=== PATIENT | male | born 1935 | race Two or more races ===

== ENCOUNTER 2022-09-19 13:21 | Outpatient (CLI) | payer MEDICARE, OTHER | END 2022-09-19 23:59 | disposition critical access hospital (66) | LOC: EMS 13:21 | DX: S09.90XA Unspecified injury of head, initial encounter (principal); R51.9 Headache, unspecified; W01.0XXA Fall on same level from slipping, tripping and stumbling without subsequent striking against object, initial encounter; Y93.89 Activity, other specified; Y92.009 Unspecified place in unspecified non-institutional (private) residence as the place of occurrence of the external cause; Z79.01 Long term (current) use of anticoagulants | CPT/HCPCS: A0425; A0429 ==

== ENCOUNTER 2022-09-19 13:59 | Emergency (ER) | payer MEDICARE, OTHER ==
[2022-09-19] MEDS ORDERED: ACETAMINOPHEN 325 MG TABLET PO STA (14:04)
--- NOTE | 2022-09-19 14:05 | ED Physician Documentation ---
PD HPI HEAD INJURY - Stated complaint Stated Complaint: FALL - History obtained from History obtained from: Patient, Family, EMS - History of Present Illness Mechanism of head injury: Fell (he was rollling a wheelbarrow of cord wood and it tipped, causing him to fall to side, striking head on the edge of minto. Possible briefly dazed. No reported LOC. No focal weakness, nausea, headache, neck pain.) Where head injury occurred: Home Timing - onset: Today Associated symptoms: AMS (briefly dazed and slow answers per family, but just for few minutes. Normal here in ER.). No: LOC Symptoms improve with: Rest Symptoms worsen with: Palpation (left side of head.). No: Movement Contributing factors: Anticoagulated Similar symptoms before: Has not had sx before Review of Systems Constitutional: denies: Fever Throat: denies: Sore throat Cardiac: denies: Chest pain / pressure Respiratory: denies: Dyspnea, Cough GI: denies: Abdominal Pain Neurologic: reports: Head injury. denies: Focal weakness, Numbness, Near syncope, Headache PD PAST MEDICAL HISTORY - Past Medical History Cardiovascular: Hypertension, Atrial fibrillation Neuro: None Endocrine/Autoimmune: Type 2 diabetes - Past Surgical History Past Surgical History: Yes Ortho: Knee replacement Cardiovascular: Pacemaker - Present Medications Home Medications: Ambulatory Orders Medication Instructions Recorded Confirmed Alfuzosin HCl [Alfuzosin HCl ER] 11/21/13 11/21/13 Calcium Carbonate [Calcium] 11/21/13 11/21/13 Ferrous Sulfate [Slow Release Iron] 11/21/13 11/21/13 Folic Acid 11/21/13 11/21/13 Losartan [Cozaar] 11/21/13 11/21/13 Metformin HCl 11/21/13 11/21/13 Metoprolol Succinate [Toprol Xl] 11/21/13 11/21/13 Simvastatin 11/21/13 11/21/13 Warfarin [Coumadin] 11/21/13 11/21/13 - Allergies Allergies/Adverse Reactions: Allergies Allergy/AdvReac Type Severity Reaction Status Date / Time latex AdvReac Itching Verified 09/19/22 14:01 - Social History Does the pt smoke?: No Smoking Status: Never smoker Does the pt drink ETOH?: No Does the pt have substance abuse?: No - Immunizations Immunizations are current?: Yes - POLST Patient has POLST: No PD ED PE NORMAL - Vitals Vital signs reviewed: Yes - General General: Alert and oriented X 3, No acute distress, Well developed/nourished - HEENT HEENT: PERRL, EOMI, Other (left parietal area with mild tenderness. No swelling nor brusing. ) - Neck Neck: Supple, no meningeal sign, No bony TTP, No adenopathy - Respiratory Respiratory: Clear bilaterally, Other (no chestwall tenderness. 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 ), See rad report PD Medical Decision Making - ED course Complexity details: reviewed results (no ICh nor acute findings. ), considered d ifferential (had fall with some impact of head but no neuro symptoms nor headache in ER. Is on coumadin, so risk of ICH. Can get CT ehad. ), d/w patient Departure - Departure Disposition: 01 Home, Self Care Clinical Impression: Accidental fall, Head contusion, Anticoagulant long-term use Condition: Stable Record reviewed to determine appropriate education?: Yes Follow-Up: Clari Pacheco MD [Primary Care Provider] - Comments: Your Coumadin level is 2.0 which is in the normal therapeutic range. Continue usual medications. Stay well-hydrated. Your head CT scan is normal. No signs of bleeding. We did this because of the concern for easier bleeding when you are on a blood thinner and struck your head. At this point you appear well. Normal activity as tolerated. Tylenol if needed for pains. Discharge Date/Time: 09/19/22 15:45
--- OUTSIDE RECORDS SUMMARY | 2022-09-19 14:28 | EXTERNAL MEDICAL SUMMARY RPT | Continuity of Care Document ---
Author Name Unknown Address [address] [place] [address] Phone Organization [place] Address [address] [place] [address] Phone Care Team Providers Care Fiscal Technician Name Role Phone Clari Pacheco Unavailable Unavailable Allergies and Intolerances date description facility type (no date) amiodarone [facility] (unknown) (no date) codeine [facility] (unknown) (no date) hydromorphone [facility] (unknown) (no date) latex [facility] (unknown) (no date) oxycodone [facility] (unknown) Problems date description facility 2022-08-09 00:00 Dementia [facility] Procedures date description facility 2022-08-09 00:00 X-ray of chest, single view [facility] 2022-08-09 00:00 Computed tomography angiography of head and neck vessels with contrast [facility] Results/Labs test date author facility value unit interpretation Result panel 1 (unknown) (no date) (unknown) [facility] (no value) (units unknown) (unknown) Result panel 2 (unknown) (no date) (unknown) [facility] (no value) (units unknown) (unknown) Result panel 3 (unknown) (no date) (unknown) [facility] (no value) (units unknown) (unknown) Result panel 4 (unknown) (no date) (unknown) [facility] (no value) (units unknown) (unknown) Result panel 5 (unknown) (no date) (unknown) [facility] (no value) (units unknown) (unknown) Result panel 6 (unknown) (no date) (unknown) [facility] (no value) (units unknown) (unknown) Result panel 7 (unknown) (no date) (unknown) [facility] (no value) (units unknown) (unknown) Result panel 8 (unknown) (no date) (unknown) [facility] (no value) (units unknown) (unknown) Result panel 9 (unknown) (no date) (unknown) [facility] (no value) (units unknown) (unknown) Result panel 10 (unknown) (no date) (unknown) [facility] (no value) (units unknown) (unknown) Result panel 11 (unknown) (no date) (unknown) [facility] (no value) (units unknown) (unknown) Result panel 12 (unknown) (no date) (unknown) [facility] (no value) (units unknown) (unknown) Result panel 13 (unknown) (no date) (unknown) [facility] (no value) (units unknown) (unknown) Result panel 14 (unknown) (no date) (unknown) [facility] (no value) (units unknown) (unknown) Result panel 15 (unknown) (no date) (unknown) [facility] (no value) (units unknown) (unknown) Result panel 16 (unknown) (no date) (unknown) [facility] (no value) (units unknown) (unknown) Result panel 17 (unknown) (no date) (unknown) [facility] (no value) (units unknown) (unknown) Result panel 18 (unknown) (no date) (unknown) [facility] (no value) (units unknown) (unknown) Result panel 19 (unknown) (no date) (unknown) [facility] (no value) (units unknown) (unknown) Result panel 20 (unknown) (no date) (unknown) [facility] (no value) (units unknown) (unknown) Result panel 21 (unknown) (no date) (unknown) [facility] (no value) (units unknown) (unknown) Result panel 22 (unknown) (no date) (unknown) [facility] (no value) (units unknown) (unknown) Result panel 23 (unknown) (no date) (unknown) [facility] (no value) (units unknown) (unknown) Result panel 24 (unknown) (no date) (unknown) [facility] (no value) (units unknown) (unknown) Result panel 25 (unknown) (no date) (unknown) [facility] (no value) (units unknown) (unknown) Result panel 26 (unknown) (no date) (unknown) [facility] (no value) (units unknown) (unknown) Result panel 27 (unknown) (no date) (unknown) [facility] (no value) (units unknown) (unknown) Result panel 28 (unknown) (no date) (unknown) [facility] (no value) (units unknown) (unknown) Result panel 29 (unknown) (no date) (unknown) [facility] (no value) (units unknown) (unknown) Result panel 30 (unknown) (no date) (unknown) [facility] (no value) (units unknown) (unknown) Result panel 31 (unknown) (no date) (unknown) [facility] (no value) (units unknown) (unknown) Result panel 32 (unknown) (no date) (unknown) [facility] (no value) (units unknown) (unknown) Result panel 33 (unknown) (no date) (unknown) [facility] (no value) (units unknown) (unknown) Result panel 34 (unknown) (no date) (unknown) [facility] (no value) (units unknown) (unknown) Result panel 35 (unknown) (no date) (unknown) [facility] (no value) (units unknown) (unknown) Result panel 36 (unknown) (no date) (unknown) [facility] (no value) (units unknown) (unknown) Result panel 37 (unknown) (no date) (unknown) [facility] (no value) (units unknown) (unknown) Result panel 38 (unknown) (no date) (unknown) [facility] (no value) (units unknown) (unknown) Result panel 39 (unknown) (no date) (unknown) [facility] (no value) (units unknown) (unknown) Result panel 40 (unknown) (no date) (unknown) [facility] (no value) (units unknown) (unknown) Result panel 41 (unknown) (no date) (unknown) [facility] (no value) (units unknown) (unknown) Result panel 42 (unknown) (no date) (unknown) [facility] (no value) (units unknown) (unknown) Result panel 43 (unknown) (no date) (unknown) [facility] (no value) (units unknown) (unknown) Result panel 44 (unknown) (no date) (unknown) [facility] (no value) (units unknown) (unknown) Result panel 45 (unknown) (no date) (unknown) [facility] (no value) (units unknown) (unknown) Result panel 46 (unknown) (no date) (unknown) [facility] (no value) (units unknown) (unknown) Result panel 47 (unknown) (no date) (unknown) [facility] (no value) (units unknown) (unknown) Result panel 48 (unknown) (no date) (unknown) [facility] (no value) (units unknown) (unknown) Result panel 49 (unknown) (no date) (unknown) [facility] (no value) (units unknown) (unknown) Result panel 50 (unknown) (no date) (unknown) [facility] (no value) (units unknown) (unknown) Result panel 51 (unknown) (no date) (unknown) [facility] (no value) (units unknown) (unknown) Result panel 52 (unknown) (no date) (unknown) [facility] (no value) (units unknown) (unknown) Result panel 53 (unknown) (no date) (unknown) [facility] (no value) (units unknown) (unknown) Result panel 54 (unknown) (no date) (unknown) [facility] (no value) (units unknown) (unknown) Result panel 55 (unknown) (no date) (unknown) [facility] (no value) (units unknown) (unknown) Result panel 56 (unknown) (no date) (unknown) [facility] (no value) (units unknown) (unknown) Result panel 57 (unknown) (no date) (unknown) [facility] (no value) (units unknown) (unknown) Result panel 58 (unknown) (no date) (unknown) [facility] (no value) (units unknown) (unknown) Result panel 59 (unknown) (no date) (unknown) [facility] (no value) (units unknown) (unknown) Result panel 60 (unknown) (no date) (unknown) [facility] (no value) (units unknown) (unknown) Result panel 61 (unknown) (no date) (unknown) [facility] (no value) (units unknown) (unknown) Result panel 62 (unknown) (no date) (unknown) [facility] (no value) (units unknown) (unknown) Result panel 63 (unknown) (no date) (unknown) [facility] (no value) (units unknown) (unknown) Result panel 64 (unknown) (no date) (unknown) [facility] (no value) (units unknown) (unknown) Result panel 65 (unknown) (no date) (unknown) [facility] (no value) (units unknown) (unknown) Result panel 66 (unknown) (no date) (unknown) [facility] (no value) (units unknown) (unknown) Result panel 67 (unknown) (no date) (unknown) [facility] (no value) (units unknown) (unknown) Result panel 68 (unknown) (no date) (unknown) [facility] (no value) (units unknown) (unknown) Result panel 69 (unknown) (no date) (unknown) [facility] (no value) (units unknown) (unknown) Result panel 70 (unknown) (no date) (unknown) [facility] (no value) (units unknown) (unknown) Result panel 71 (unknown) (no date) (unknown) [facility] (no value) (units unknown) (unknown) Result panel 72 (unknown) (no date) (unknown) [facility] (no value) (units unknown) (unknown) Result panel 73 (unknown) (no date) (unknown) [facility] (no value) (units unknown) (unknown) Result panel 74 (unknown) (no date) (unknown) [facility] (no value) (units unknown) (unknown) Result panel 75 (unknown) (no date) (unknown) [facility] (no value) (units unknown) (unknown) Result panel 76 (unknown) (no date) (unknown) [facility] (no value) (units unknown) (unknown) Result panel 77 (unknown) (no date) (unknown) [facility] (no value) (units unknown) (unknown) Result panel 78 (unknown) (no date) (unknown) [facility] (no value) (units unknown) (unknown) Result panel 79 (unknown) (no date) (unknown) [facility] (no value) (units unknown) (unknown) Result panel 80 (unknown) (no date) (unknown) [facility] (no value) (units unknown) (unknown) Result panel 81 (unknown) (no date) (unknown) [facility] (no value) (units unknown) (unknown) Result panel 82 (unknown) (no date) (unknown) [facility] (no value) (units unknown) (unknown) Result panel 83 (unknown) (no date) (unknown) [facility] (no value) (units unknown) (unknown) Result panel 84 (unknown) (no date) (unknown) [facility] (no value) (units unknown) (unknown) Result panel 85 (unknown) (no date) (unknown) [facility] (no value) (units unknown) (unknown) Result panel 86 (unknown) (no date) (unknown) [facility] (no value) (units unknown) (unknown) Result panel 87 (unknown) (no date) (unknown) [facility] (no value) (units unknown) (unknown) Result panel 88 (unknown) (no date) (unknown) [facility] (no value) (units unknown) (unknown) Result panel 89 (unknown) (no date) (unknown) [facility] (no value) (units unknown) (unknown) Result panel 90 (unknown) (no date) (unknown) [facility] (no value) (units unknown) (unknown) Result panel 91 (unknown) (no date) (unknown) [facility] (no value) (units unknown) (unknown) Result panel 92 (unknown) (no date) (unknown) [facility] (no value) (units unknown) (unknown) Result panel 93 (unknown) (no date) (unknown) [facility] (no value) (units unknown) (unknown) Result panel 94 (unknown) (no date) (unknown) [facility] (no value) (units unknown) (unknown) Result panel 95 (unknown) (no date) (unknown) [facility] (no value) (units unknown) (unknown) Result panel 96 (unknown) (no date) (unknown) [facility] (no value) (units unknown) (unknown) Result panel 97 (unknown) (no date) (unknown) [facility] (no value) (units unknown) (unknown) Result panel 98 (unknown) (no date) (unknown) [facility] (no value) (units unknown) (unknown) Result panel 99 (unknown) (no date) (unknown) [facility] (no value) (units unknown) (unknown) Result panel 100 (unknown) (no date) (unknown) [facility] (no value) (units unknown) (unknown) Result panel 101 (unknown) (no date) (unknown) [facility] (no value) (units unknown) (unknown) Result panel 102 (unknown) (no date) (unknown) [facility] (no value) (units unknown) (unknown) Result panel 103 (unknown) (no date) (unknown) [facility] (no value) (units unknown) (unknown) Result panel 104 (unknown) (no date) (unknown) [facility] (no value) (units unknown) (unknown) Result panel 105 (unknown) (no date) (unknown) [facility] (no value) (units unknown) (unknown) Result panel 106 (unknown) (no date) (unknown) [facility] (no value) (units unknown) (unknown) Result panel 107 (unknown) (no date) (unknown) [facility] (no value) (units unknown) (unknown) Result panel 108 (unknown) (no date) (unknown) [facility] (no value) (units unknown) (unknown) Result panel 109 (unknown) (no date) (unknown) [facility] (no value) (units unknown) (unknown) Result panel 110 (unknown) (no date) (unknown) [facility] (no value) (units unknown) (unknown) Result panel 111 (unknown) (no date) (unknown) [facility] (no value) (units unknown) (unknown) Result panel 112 (unknown) (no date) (unknown) (unknown) (no value) (units unknown) (unknown) (unknown) (no date) (unknown) (unknown) [id number] (units unknown) (unknown) (unknown) (no date) (unknown) (unknown) 08/09/22 (units unknown) (unknown) (unknown) (no date) (unknown) (unknown) 02/28/2017, 12:04. (units unknown) (unknown) (unknown) (no date) (unknown) (unknown) [address] [place] [address] (units unknown) (unknown) (unknown) (no date) (unknown) (unknown) Accession Number: [id number] (units unknown) (unknown) (unknown) (no date) (unknown) (unknown) Age/Sex: 86 / M Date of Service: (units unknown) (unknown) (unknown) (no date) (unknown) (unknown) [place] [address] (units unknown) (unknown) (unknown) (no date) (unknown) (unknown) Approved by: Andrzej Gonzales M.D. on 08/09/2022 at 14:00 (units unknown) (unknown) (unknown) (no date) (unknown) (unknown) Bones and chest wall: No suspicious bony lesions. Right shoulder DJD. (units unknown) (unknown) (unknown) (no date) (unknown) (unknown) COMPARISON: [facility], CT, CT ANGIO HEAD AND NECK, 08/09/2022, 12:47. (units unknown) (unknown) (unknown) (no date) (unknown) (unknown) : 1935 Acct:[id number] (units unknown) (unknown) (unknown) (no date) (unknown) (unknown) Dictated by: Andrzej Gonzales M.D. on 08/09/2022 at 13:59 (units unknown) (unknown) (unknown) (no date) (unknown) (unknown) FINDINGS: (units unknown) (unknown) (unknown) (no date) (unknown) (unknown) [facility], CR, XR CHEST 2V, 02/10/2020, 12:59. [facility], , CHEST 1 VIEW, (units unknown) (unknown) (unknown) (no date) (unknown) (unknown) IMPRESSION: (units unknown) (unknown) (unknown) (no date) (unknown) (unknown) INDICATIONS: chest pain (units unknown) (unknown) (unknown) (no date) (unknown) (unknown) [facility] (units unknown) (unknown) (unknown) (no date) (unknown) (unknown) [facility] (units unknown) (unknown) (unknown) (no date) (unknown) (unknown) Loc: ED (units unknown) (unknown) (unknown) (no date) (unknown) (unknown) Lungs and pleura: Lungs are clear. No pleural effusions or pneumothorax. (units unknown) (unknown) (unknown) (no date) (unknown) (unknown) Mediastinum: Mediastinal contours appear unchanged. Heart size is normal. (units unknown) (unknown) (unknown) (no date) (unknown) (unknown) No acute cardiopulmonary abnormality. (units unknown) (unknown) (unknown) (no date) (unknown) (unknown) Ordering Provider: Eulalia Hilliard D.O. (units unknown) (unknown) (unknown) (no date) (unknown) (unknown) Overlying soft (units unknown) (unknown) (unknown) (no date) (unknown) (unknown) PROCEDURE: XR CHEST 1V (units unknown) (unknown) (unknown) (no date) (unknown) (unknown) Patient: Mando Gomez MR#: [id number] (units unknown) (unknown) (unknown) (no date) (unknown) (unknown) Procedure: XR chest 1V (units unknown) (unknown) (unknown) (no date) (unknown) (unknown) Signed (units unknown) (unknown) (unknown) (no date) (unknown) (unknown) Surgical changes and devices: Cervical spine hardware. Left pacemaker with (units unknown) (unknown) (unknown) (no date) (unknown) (unknown) TECHNIQUE: One view of the chest was acquired. (units unknown) (unknown) (unknown) (no date) (unknown) (unknown) XRay Report (units unknown) (unknown) (unknown) (no date) (unknown) (unknown) and right ventricular leads. (units unknown) (unknown) (unknown) (no date) (unknown) (unknown) right atrial (units unknown) (unknown) (unknown) (no date) (unknown) (unknown) tissues appear unremarkable. (units unknown) (unknown) Result panel 113 (unknown) (no date) (unknown) (unknown) (no value) (units unknown) (unknown) (unknown) (no date) (unknown) (unknown) [id number] (units unknown) (unknown) (unknown) (no date) (unknown) (unknown) 08/09/22 (units unknown) (unknown) (unknown) (no date) (unknown) (unknown) [address] [place] [address] (units unknown) (unknown) (unknown) (no date) (unknown) (unknown) 07/26/2018, 17:34. (units unknown) (unknown) (unknown) (no date) (unknown) (unknown) A1 (units unknown) (unknown) (unknown) (no date) (unknown) (unknown) Accession Number: [id number] (units unknown) (unknown) (unknown) (no date) (unknown) (unknown) Additional findings: (units unknown) (unknown) (unknown) (no date) (unknown) (unknown) Age/Sex: 86 / M Date of Service: (units unknown) (unknown) (unknown) (no date) (unknown) (unknown) [place] [address] (units unknown) (unknown) (unknown) (no date) (unknown) (unknown) Anterior circulation: Intracranial internal carotid arteries are normal in size (units unknown) (unknown) (unknown) (no date) (unknown) (unknown) Any quantitative measurements of stenosis were performed using NASCET criteria. (units unknown) (unknown) (unknown) (no date) (unknown) (unknown) Approved by: Rian Rogers M.D. on 08/09/2022 at 12:30 (units unknown) (unknown) (unknown) (no date) (unknown) (unknown) BRAIN: (units unknown) (unknown) (unknown) (no date) (unknown) (unknown) Bones: No suspicious bony lesions. Visualized cervical spine appears normally (units unknown) (unknown) (unknown) (no date) (unknown) (unknown) Brain: No midline shift. No intracranial bleeds or masses. Ortiz-white matter (units unknown) (unknown) (unknown) (no date) (unknown) (unknown) COMPARISON: [facility], MR, STROKE PROTOCOL A, 01/02/2010, 19:35. [facility] (units unknown) (unknown) (unknown) (no date) (unknown) (unknown) CSF spaces: Ventricles are normal in size and shape. Basal cisterns are (units unknown) (unknown) (unknown) (no date) (unknown) (unknown) CT Scan Report (units unknown) (unknown) (unknown) (no date) (unknown) (unknown) CT, CT HEAD/BRAIN WO [facility], 07/16/2018, 18:37. [facility], CT, CT HEAD/BRAIN (units unknown) (unknown) (unknown) (no date) (unknown) (unknown) Carotid system: Atherosclerotic calcification is noted. The great vessels (units unknown) (unknown) (unknown) (no date) (unknown) (unknown) [id number] developmental anomalies (units unknown) (unknown) (unknown) (no date) (unknown) (unknown) : 1935 Acct:[id number] (units unknown) (unknown) (unknown) (no date) (unknown) (unknown) Dictated by: Rian Rogers M.D. on 08/09/2022 at 12:25 (units unknown) (unknown) (unknown) (no date) (unknown) (unknown) Extensive cervical spine postoperative and degenerative change. (units unknown) (unknown) (unknown) (no date) (unknown) (unknown) Extensive postoperative and degenerative changes can be seen of the cervical (units unknown) (unknown) (unknown) (no date) (unknown) (unknown) FINDINGS: (units unknown) (unknown) (unknown) (no date) (unknown) (unknown) HEAD CT ANGIOGRAPHY: (units unknown) (unknown) (unknown) (no date) (unknown) (unknown) Hospital, (units unknown) (unknown) (unknown) (no date) (unknown) (unknown) IMPRESSION: (units unknown) (unknown) (unknown) (no date) (unknown) (unknown) INDICATIONS: confusion since last night (units unknown) (unknown) (unknown) (no date) (unknown) (unknown) Image quality: Mild streak artifact can be seen through the skull base. (units unknown) (unknown) (unknown) (no date) (unknown) (unknown) [facility] (units unknown) (unknown) (unknown) (no date) (unknown) (unknown) Loc: ED (units unknown) (unknown) (unknown) (no date) (unknown) (unknown) NECK CT ANGIOGRAPHY: (units unknown) (unknown) (unknown) (no date) (unknown) (unknown) No acute intracranial process is seen. (units unknown) (unknown) (unknown) (no date) (unknown) (unknown) No significant intracranial arterial abnormality is seen. (units unknown) (unknown) (unknown) (no date) (unknown) (unknown) Orbits appear normal. (units unknown) (unknown) (unknown) (no date) (unknown) (unknown) Ordering Provider: Eulalia Hilliard D.O. (units unknown) (unknown) (unknown) (no date) (unknown) (unknown) PROCEDURE: CT ANGIO HEAD AND NECK (units unknown) (unknown) (unknown) (no date) (unknown) (unknown) Patient: Mando Gomez MR#: [id number] (units unknown) (unknown) (unknown) (no date) (unknown) (unknown) Posterior circulation: The origins of the vertebral arteries both appear widely (units unknown) (unknown) (unknown) (no date) (unknown) (unknown) Posterior circulation: The right V4 segment is within normal limits. The left (units unknown) (unknown) (unknown) (no date) (unknown) (unknown) Pre-contrast 4.5 mm thick sections acquired from the foramen magnum to the (units unknown) (unknown) (unknown) (no date) (unknown) (unknown) Procedure: CT angio head and neck (units unknown) (unknown) (unknown) (no date) (unknown) (unknown) Signed (units unknown) (unknown) (unknown) (no date) (unknown) (unknown) Sinuses: Sinuses and mastoids are clear. (units unknown) (unknown) (unknown) (no date) (unknown) (unknown) Skull and face: Calvarium and facial bones appear intact, without suspicious (units unknown) (unknown) (unknown) (no date) (unknown) (unknown) Soft tissues: Visualized neck soft tissues demonstrate no suspicious (units unknown) (unknown) (unknown) (no date) (unknown) (unknown) TECHNIQUE: (units unknown) (unknown) (unknown) (no date) (unknown) (unknown) The more superior extracranial portions of both vertebral arteries also (units unknown) (unknown) (unknown) (no date) (unknown) (unknown) There is a (units unknown) (unknown) (unknown) (no date) (unknown) (unknown) V4 (units unknown) (unknown) (unknown) (no date) (unknown) (unknown) WO CON, (units unknown) (unknown) (unknown) (no date) (unknown) (unknown) M[place], of typically no clinical consequence. The flow within the paired (units unknown) (unknown) (unknown) (no date) (unknown) (unknown) Within the arteries of the neck, no hemodynamically significant stenosis can be (units unknown) (unknown) (unknown) (no date) (unknown) (unknown) abnormalities. A (units unknown) (unknown) (unknown) (no date) (unknown) (unknown) acquired (units unknown) (unknown) (unknown) (no date) (unknown) (unknown) aligned. (units unknown) (unknown) (unknown) (no date) (unknown) (unknown) and courses. The bifurcation regions demonstrate generalized atherosclerotic (units unknown) (unknown) (unknown) (no date) (unknown) (unknown) and neck separately. For radiation dose reduction, the following was used: (units unknown) (unknown) (unknown) (no date) (unknown) (unknown) and symmetric. No aneurysms are seen. (units unknown) (unknown) (unknown) (no date) (unknown) (unknown) and (units unknown) (unknown) (unknown) (no date) (unknown) (unknown) and/or volume rendering reformats were acquired of the central intracranial (units unknown) (unknown) (unknown) (no date) (unknown) (unknown) anterior (units unknown) (unknown) (unknown) (no date) (unknown) (unknown) appears intact. (units unknown) (unknown) (unknown) (no date) (unknown) (unknown) arch through the [place] of [place]za. Post-contrast 4.5 mm thick sections then re (units unknown) (unknown) (unknown) (no date) (unknown) (unknown) arteries is normal and symmetric, with note made of focal atherosclerotic (units unknown) (unknown) (unknown) (no date) (unknown) (unknown) artery is (units unknown) (unknown) (unknown) (no date) (unknown) (unknown) automated (units unknown) (unknown) (unknown) (no date) (unknown) (unknown) calcification (units unknown) (unknown) (unknown) (no date) (unknown) (unknown) caliber (units unknown) (unknown) (unknown) (no date) (unknown) (unknown) carotid arteries appear patent. The common carotid arteries demonstrate normal (units unknown) (unknown) (unknown) (no date) (unknown) (unknown) cerebral arteries is otherwise within normal limits. The flow within the middle (units unknown) (unknown) (unknown) (no date) (unknown) (unknown) cerebral (units unknown) (unknown) (unknown) (no date) (unknown) (unknown) common (units unknown) (unknown) (unknown) (no date) (unknown) (unknown) conventional anatomy as they arise from the aortic arch. The origins of the (units unknown) (unknown) (unknown) (no date) (unknown) (unknown) demonstrate a (units unknown) (unknown) (unknown) (no date) (unknown) (unknown) demonstrate (units unknown) (unknown) (unknown) (no date) (unknown) (unknown) exposure control, adjustment of mA and/or kV according to patient size. (units unknown) (unknown) (unknown) (no date) (unknown) (unknown) extra-axial fluid collections. (units unknown) (unknown) (unknown) (no date) (unknown) (unknown) flow. There is a diminutive left A1 segment, with a corresponding robust right (units unknown) (unknown) (unknown) (no date) (unknown) (unknown) from the foramen magnum to the vertex. 3-dimensional (units unknown) (unknown) (unknown) (no date) (unknown) (unknown) interface (units unknown) (unknown) (unknown) (no date) (unknown) (unknown) irregularity and calcification, yet without a hemodynamically significant (units unknown) (unknown) (unknown) (no date) (unknown) (unknown) left-sided pacer device is seen. (units unknown) (unknown) (unknown) (no date) (unknown) (unknown) left. (units unknown) (unknown) (unknown) (no date) (unknown) (unknown) lesions. (units unknown) (unknown) (unknown) (no date) (unknown) (unknown) iisquhc-zyrikxilb-e rojection (MIP) (units unknown) (unknown) (unknown) (no date) (unknown) (unknown) more distal internal carotid arteries demonstrate normal course and caliber. (units unknown) (unknown) (unknown) (no date) (unknown) (unknown) normal appearing basilar artery. Flow within the posterior cerebral arteries is (units unknown) (unknown) (unknown) (no date) (unknown) (unknown) normal courses and calibers. The right vertebral artery is dominant to the (units unknown) (unknown) (unknown) (no date) (unknown) (unknown) normal (units unknown) (unknown) (unknown) (no date) (unknown) (unknown) of the right M1 segment, as on series 9, image 89. The anterior communicating (units unknown) (unknown) (unknown) (no date) (unknown) (unknown) of (units unknown) (unknown) (unknown) (no date) (unknown) (unknown) patent. No (units unknown) (unknown) (unknown) (no date) (unknown) (unknown) patent. (units unknown) (unknown) (unknown) (no date) (unknown) (unknown) seen. No aneurysms are seen. (units unknown) (unknown) (unknown) (no date) (unknown) (unknown) seen. (units unknown) (unknown) (unknown) (no date) (unknown) (unknown) segment largely terminates in the left posterior inferior cerebellar artery. (units unknown) (unknown) (unknown) (no date) (unknown) (unknown) segment. This is considered to be a normal developmental variant of the [place] (units unknown) (unknown) (unknown) (no date) (unknown) (unknown) spine. (units unknown) (unknown) (unknown) (no date) (unknown) (unknown) stenosis. The (units unknown) (unknown) (unknown) (no date) (unknown) (unknown) the administration of intravenous contrast, 1 mm thick sections acquired from (units unknown) (unknown) (unknown) (no date) (unknown) (unknown) the aortic (units unknown) (unknown) (unknown) (no date) (unknown) (unknown) vasculature (units unknown) (unknown) (unknown) (no date) (unknown) (unknown) vertex. After (units unknown) (unknown) Result panel 114 (unknown) (no date) (unknown) (unknown) 0.9 % (unknown) (unknown) (no date) (unknown) (unknown) 100 /ul (unknown) (unknown) (no date) (unknown) (unknown) 1000 /ul (unknown) (unknown) (no date) (unknown) (unknown) 13.0 g/dl (unknown) (unknown) (no date) (unknown) (unknown) 14.4 % (unknown) (unknown) (no date) (unknown) (unknown) 169 x10 3/ul (unknown) (unknown) (no date) (unknown) (unknown) 17.8 % (unknown) (unknown) (no date) (unknown) (unknown) 3.98 x10 6/ul (unknown) (unknown) (no date) (unknown) (unknown) 32.7 pg (unknown) (unknown) (no date) (unknown) (unknown) 33.7 % (unknown) (unknown) (no date) (unknown) (unknown) 38.7 % (unknown) (unknown) (no date) (unknown) (unknown) 3800 /ul (unknown) (unknown) (no date) (unknown) (unknown) 400 /ul (unknown) (unknown) (no date) (unknown) (unknown) 5.8 x10 3/ul (unknown) (unknown) (no date) (unknown) (unknown) 500 /ul (unknown) (unknown) (no date) (unknown) (unknown) 6.5 % (unknown) (unknown) (no date) (unknown) (unknown) 65.7 % (unknown) (unknown) (no date) (unknown) (unknown) 9.1 % (unknown) (unknown) (no date) (unknown) (unknown) 97.0 fl (unknown) Result panel 115 (unknown) (no date) (unknown) (unknown) 1.0 mg/dl (unknown) (unknown) (no date) (unknown) (unknown) 1.23 mg/dl (unknown) (unknown) (no date) (unknown) (unknown) 1.3 (units unknown) (unknown) (unknown) (no date) (unknown) (unknown) 112 u/l (unknown) (unknown) (no date) (unknown) (unknown) 137 mmol/l (unknown) (unknown) (no date) (unknown) (unknown) 145 mg/dl (unknown) (unknown) (no date) (unknown) (unknown) 145 mg/dl (unknown) (unknown) (no date) (unknown) (unknown) 2.6 mmol/l (unknown) (unknown) (no date) (unknown) (unknown) 21 iu/l (unknown) (unknown) (no date) (unknown) (unknown) 23.6 (units unknown) (unknown) (unknown) (no date) (unknown) (unknown) 27 mmol/l (unknown) (unknown) (no date) (unknown) (unknown) 29 mg/dl (unknown) (unknown) (no date) (unknown) (unknown) 30 iu/l (unknown) (unknown) (no date) (unknown) (unknown) 379 u/l (unknown) (unknown) (no date) (unknown) (unknown) 4.0 g/dl (unknown) (unknown) (no date) (unknown) (unknown) 4.7 mmol/l (unknown) (unknown) (no date) (unknown) (unknown) 5.0 g/dl (unknown) (unknown) (no date) (unknown) (unknown) 57 ml/min (unknown) (unknown) (no date) (unknown) (unknown) 57 ml/min (unknown) (unknown) (no date) (unknown) (unknown) 83 u/l (unknown) (unknown) (no date) (unknown) (unknown) 9.0 g/dl (unknown) (unknown) (no date) (unknown) (unknown) 9.9 mg/dl (unknown) (unknown) (no date) (unknown) (unknown) 99 mmol/l (unknown) Result panel 116 (unknown) (no date) (unknown) (unknown) (no value) (units unknown) (unknown) (unknown) (no date) (unknown) (unknown) (Calcium 500 + D) (units unknown) (unknown) (unknown) (no date) (unknown) (unknown) [id number] (units unknown) (unknown) (unknown) (no date) (unknown) (unknown) 08/09/22 08/09/22 08/09/22 Range/Units (units unknown) (unknown) (unknown) (no date) (unknown) (unknown) 08/09/22 12:01 (units unknown) (unknown) (unknown) (no date) (unknown) (unknown) 08/09/22 12:02 (units unknown) (unknown) (unknown) (no date) (unknown) (unknown) 08/09/22 12:05 (units unknown) (unknown) (unknown) (no date) (unknown) (unknown) 08/09/22 12:07 (units unknown) (unknown) (unknown) (no date) (unknown) (unknown) 08/09/22 12:08 (units unknown) (unknown) (unknown) (no date) (unknown) (unknown) 08/09/22 (units unknown) (unknown) (unknown) (no date) (unknown) (unknown) 1 tab PO BID (units unknown) (unknown) (unknown) (no date) (unknown) (unknown) 1,000 mg PO BID (units unknown) (unknown) (unknown) (no date) (unknown) (unknown) 1,000 unit PO DAILY (units unknown) (unknown) (unknown) (no date) (unknown) (unknown) 1.5 mg PO SEEINSTR Qty: 0 (units unknown) (unknown) (unknown) (no date) (unknown) (unknown) 10 mg PO BEDTIME (units unknown) (unknown) (unknown) (no date) (unknown) (unknown) 10 mg PO QDAY Qty: 0 (units unknown) (unknown) (unknown) (no date) (unknown) (unknown) 100 mcg PO BID (units unknown) (unknown) (unknown) (no date) (unknown) (unknown) 11:55 (units unknown) (unknown) (unknown) (no date) (unknown) (unknown) 12:05 12:05 12:05 (units unknown) (unknown) (unknown) (no date) (unknown) (unknown) 2 spray Intranasal BID Qty: 0 (units unknown) (unknown) (unknown) (no date) (unknown) (unknown) 2 tab PO DAILY (units unknown) (unknown) (unknown) (no date) (unknown) (unknown) 3 mg PO SEEINSTR (units unknown) (unknown) (unknown) (no date) (unknown) (unknown) 324 mg PO DAILY (units unknown) (unknown) (unknown) (no date) (unknown) (unknown) 500 mg PO BID (units unknown) (unknown) (unknown) (no date) (unknown) (unknown) 75 mg PO DAILY (units unknown) (unknown) (unknown) (no date) (unknown) (unknown) ALT 21 (<50) IU/L (units unknown) (unknown) (unknown) (no date) (unknown) (unknown) AST 30 (17-59) IU/L (units unknown) (unknown) (unknown) (no date) (unknown) (unknown) Age/Sex: 86 / M (units unknown) (unknown) (unknown) (no date) (unknown) (unknown) Albumin 5.0 (3.5-5.0) g/dL (units unknown) (unknown) (unknown) (no date) (unknown) (unknown) Albumin/Globulin Ratio 1.3 (1.0-2.8) (units unknown) (unknown) (unknown) (no date) (unknown) (unknown) Alkaline Phosphatase 83 (38-126) U/L (units unknown) (unknown) (unknown) (no date) (unknown) (unknown) Allergies (units unknown) (unknown) (unknown) (no date) (unknown) (unknown) Allergy/AdvReac Type Severity Reaction Status Date / Time (units unknown) (unknown) (unknown) (no date) (unknown) (unknown) Atrial fibrillation (units unknown) (unknown) (unknown) (no date) (unknown) (unknown) BUN 29 H (9-20) mg/dL (units unknown) (unknown) (unknown) (no date) (unknown) (unknown) BUN/Creatinine Ratio 23.6 H (6-22) (units unknown) (unknown) (unknown) (no date) (unknown) (unknown) Baso # (Auto) 100 (0-100) /uL (units unknown) (unknown) (unknown) (no date) (unknown) (unknown) Baso % (Auto) 0.9 (0-2) % (units unknown) (unknown) (unknown) (no date) (unknown) (unknown) Blood Culture Stat (units unknown) (unknown) (unknown) (no date) (unknown) (unknown) Blood Pressure 139/74 08/09/22 11:55 (units unknown) (unknown) (unknown) (no date) (unknown) (unknown) Blood Pressure 139/74 (units unknown) (unknown) (unknown) (no date) (unknown) (unknown) CT angio head and neck Stat (units unknown) (unknown) (unknown) (no date) (unknown) (unknown) CT head/brain wo con Stat (units unknown) (unknown) (unknown) (no date) (unknown) (unknown) Calcium 9.9 (8.4-10.2) mg/dL (units unknown) (unknown) (unknown) (no date) (unknown) (unknown) Carbon Dioxide 27 (22-32) mmol/L (units unknown) (unknown) (unknown) (no date) (unknown) (unknown) Chief Complaint: Neuro Symptoms/Deficit (units unknown) (unknown) (unknown) (no date) (unknown) (unknown) Chloride 99 (98-107) mmol/L (units unknown) (unknown) (unknown) (no date) (unknown) (unknown) Complete Blood Count AUTO DIFF Stat (units unknown) (unknown) (unknown) (no date) (unknown) (unknown) Comprehensive Metabolic Panel Stat (units unknown) (unknown) (unknown) (no date) (unknown) (unknown) Course (units unknown) (unknown) (unknown) (no date) (unknown) (unknown) Creatinine 1.23 (0.66-1.25) mg/dL (units unknown) (unknown) (unknown) (no date) (unknown) (unknown) D3 10 mcg (400 unit) tablet (units unknown) (unknown) (unknown) (no date) (unknown) (unknown) D3) (units unknown) (unknown) (unknown) (no date) (unknown) (unknown) : 1935 Acct:[id number] (units unknown) (unknown) (unknown) (no date) (unknown) (unknown) Date of Service: 08/09/22 (units unknown) (unknown) (unknown) (no date) (unknown) (unknown) Departure (units unknown) (unknown) (unknown) (no date) (unknown) (unknown) Discharge Plan (units unknown) (unknown) (unknown) (no date) (unknown) (unknown) ED Orders (units unknown) (unknown) (unknown) (no date) (unknown) (unknown) EKG-12 Lead Stat (units unknown) (unknown) (unknown) (no date) (unknown) (unknown) ER Physician: Eulalia Hilliard D.O. (units unknown) (unknown) (unknown) (no date) (unknown) (unknown) Emergency Report (units unknown) (unknown) (unknown) (no date) (unknown) (unknown) Eos # (Auto) 400 (0-450) /uL (units unknown) (unknown) (unknown) (no date) (unknown) (unknown) Eos % (Auto) 6.5 H (2-4) % (units unknown) (unknown) (unknown) (no date) (unknown) (unknown) Estimated GFR 57 L (>60) mL/min (units unknown) (unknown) (unknown) (no date) (unknown) (unknown) Exam (units unknown) (unknown) (unknown) (no date) (unknown) (unknown) General (units unknown) (unknown) (unknown) (no date) (unknown) (unknown) Globulin 4.0 (1.7-4.1) g/dL (units unknown) (unknown) (unknown) (no date) (unknown) (unknown) Glucose 145 H (80-110) mg/dL (units unknown) (unknown) (unknown) (no date) (unknown) (unknown) HPI - Neuro Symptoms/Deficit (units unknown) (unknown) (unknown) (no date) (unknown) (unknown) Hct 38.7 L (41-53) % (units unknown) (unknown) (unknown) (no date) (unknown) (unknown) Hematologic/Lymphat ic (units unknown) (unknown) (unknown) (no date) (unknown) (unknown) Hgb 13.0 L (13.5-17.5) g/dL (units unknown) (unknown) (unknown) (no date) (unknown) (unknown) History of Present Illness (units unknown) (unknown) (unknown) (no date) (unknown) (unknown) Home Medications (units unknown) (unknown) (unknown) (no date) (unknown) (unknown) Hyperglycemia (units unknown) (unknown) (unknown) (no date) (unknown) (unknown) Hypertension (units unknown) (unknown) (unknown) (no date) (unknown) (unknown) Initial Vital Signs (units unknown) (unknown) (unknown) (no date) (unknown) (unknown) Initial Vital Signs: (units unknown) (unknown) (unknown) (no date) (unknown) (unknown) [address] [address] (units unknown) (unknown) (unknown) (no date) (unknown) (unknown) Lab Data (units unknown) (unknown) (unknown) (no date) (unknown) (unknown) Lab Results (units unknown) (unknown) (unknown) (no date) (unknown) (unknown) Labs: (units unknown) (unknown) (unknown) (no date) (unknown) (unknown) Lactate (Lactic Acid) Stat (units unknown) (unknown) (unknown) (no date) (unknown) (unknown) Lactate 2.6 H (0.7-2.1) mmol/L (units unknown) (unknown) (unknown) (no date) (unknown) (unknown) Lipase 379 H (23-300) U/L (units unknown) (unknown) (unknown) (no date) (unknown) (unknown) Lipase Stat (units unknown) (unknown) (unknown) (no date) (unknown) (unknown) Lymph # (Auto) 1000 L (6819-7462) /uL (units unknown) (unknown) (unknown) (no date) (unknown) (unknown) Lymph % (Auto) 17.8 L (25-40) % (units unknown) (unknown) (unknown) (no date) (unknown) (unknown) MCH 32.7 (26-34) PG (units unknown) (unknown) (unknown) (no date) (unknown) (unknown) MCHC 33.7 (30-36) % (units unknown) (unknown) (unknown) (no date) (unknown) (unknown) MCV 97.0 (80-100) fL (units unknown) (unknown) (unknown) (no date) (unknown) (unknown) MDM - Neuro Symptoms/Deficit (units unknown) (unknown) (unknown) (no date) (unknown) (unknown) Medical History (units unknown) (unknown) (unknown) (no date) (unknown) (unknown) Medication Instructions Recorded Confirmed (units unknown) (unknown) (unknown) (no date) (unknown) (unknown) Migraines (units unknown) (unknown) (unknown) (no date) (unknown) (unknown) Mode of arrival: Ambulatory (units unknown) (unknown) (unknown) (no date) (unknown) (unknown) [place] # (Auto) 500 (0-900) /uL (units unknown) (unknown) (unknown) (no date) (unknown) (unknown) [place] % (Auto) 9.1 (3-14) % (units unknown) (unknown) (unknown) (no date) (unknown) (unknown) Move [facility] 750 mg-100 mg- 1.65 mg-108 mg Tablet (units unknown) (unknown) (unknown) (no date) (unknown) (unknown) Neut # (Auto) 3800 (8145-3218) /uL (units unknown) (unknown) (unknown) (no date) (unknown) (unknown) Neut % (Auto) 65.7 (50-75) % (units unknown) (unknown) (unknown) (no date) (unknown) (unknown) No Action (units unknown) (unknown) (unknown) (no date) (unknown) (unknown) On Anticoagulants: Yes (units unknown) (unknown) (unknown) (no date) (unknown) (unknown) Ordered: (units unknown) (unknown) (unknown) (no date) (unknown) (unknown) Orders (units unknown) (unknown) (unknown) (no date) (unknown) (unknown) Oxygen Delivery Method Room Air 08/09/22 11:55 (units unknown) (unknown) (unknown) (no date) (unknown) (unknown) Oxygen Delivery Method Room Air (units unknown) (unknown) (unknown) (no date) (unknown) (unknown) PTT Partial Thromboplastin [place] Stat (units unknown) (unknown) (unknown) (no date) (unknown) (unknown) Pacemaker (units unknown) (unknown) (unknown) (no date) (unknown) (unknown) Patient Comments: (units unknown) (unknown) (unknown) (no date) (unknown) (unknown) Patient History (units unknown) (unknown) (unknown) (no date) (unknown) (unknown) Patient: Mando Gomez MR#: [id number] (units unknown) (unknown) (unknown) (no date) (unknown) (unknown) Plt Count 169 (150-400) X103/uL (units unknown) (unknown) (unknown) (no date) (unknown) (unknown) Potassium 4.7 (3.4-5.1) mmol/L (units unknown) (unknown) (unknown) (no date) (unknown) (unknown) Prescriptions: (units unknown) (unknown) (unknown) (no date) (unknown) (unknown) Procalcitonin Stat (units unknown) (unknown) (unknown) (no date) (unknown) (unknown) Prothrombin Time INR Stat (units unknown) (unknown) (unknown) (no date) (unknown) (unknown) Pulse Oximetry 98 08/09/22 11:55 (units unknown) (unknown) (unknown) (no date) (unknown) (unknown) Pulse Oximetry 98 (units unknown) (unknown) (unknown) (no date) (unknown) (unknown) Pulse Rate 80 08/09/22 11:55 (units unknown) (unknown) (unknown) (no date) (unknown) (unknown) Pulse Rate 80 (units unknown) (unknown) (unknown) (no date) (unknown) (unknown) RBC 3.98 L (4.5-5.9) X106/uL (units unknown) (unknown) (unknown) (no date) (unknown) (unknown) RDW 14.4 (11.6-14.8) % (units unknown) (unknown) (unknown) (no date) (unknown) (unknown) Referrals: (units unknown) (unknown) (unknown) (no date) (unknown) (unknown) Related Data (units unknown) (unknown) (unknown) (no date) (unknown) (unknown) Relief) (units unknown) (unknown) (unknown) (no date) (unknown) (unknown) Respiratory Rate 16 08/09/22 11:55 (units unknown) (unknown) (unknown) (no date) (unknown) (unknown) Respiratory Rate 16 (units unknown) (unknown) (unknown) (no date) (unknown) (unknown) Review of Systems (units unknown) (unknown) (unknown) (no date) (unknown) (unknown) Rx Instructions: (units unknown) (unknown) (unknown) (no date) (unknown) (unknown) SWELLING (units unknown) (unknown) (unknown) (no date) (unknown) (unknown) Signed By: (units unknown) (unknown) (unknown) (no date) (unknown) (unknown) Smoking Status: Never smoker (units unknown) (unknown) (unknown) (no date) (unknown) (unknown) Social History (units unknown) (unknown) (unknown) (no date) (unknown) (unknown) Sodium 137 (137-145) mmol/L (units unknown) (unknown) (unknown) (no date) (unknown) (unknown) Sodium Chloride (Normal Saline 0.9%) 1,000 mls @ 150 mls/hr IV CONT PREET (units unknown) (unknown) (unknown) (no date) (unknown) (unknown) Source: family (units unknown) (unknown) (unknown) (no date) (unknown) (unknown) Stated Complaint: sent by DR naik he had a stroke (units unknown) (unknown) (unknown) (no date) (unknown) (unknown) Substance Use Type: does not use (units unknown) (unknown) (unknown) (no date) (unknown) (unknown) Clari Pacheco MD [Primary Care Provider] (units unknown) (unknown) (unknown) (no date) (unknown) (unknown) Tablet (units unknown) (unknown) (unknown) (no date) (unknown) (unknown) Takes 1.5 mg on Tuesdays and Saturdays (units unknown) (unknown) (unknown) (no date) (unknown) (unknown) Takes 3 mg on Saturday, Saturday, , Saturday and Saturday (units unknown) (unknown) (unknown) (no date) (unknown) (unknown) Temperature 97.6 F 08/09/22 11:55 (units unknown) (unknown) (unknown) (no date) (unknown) (unknown) Temperature 97.6 F (units unknown) (unknown) (unknown) (no date) (unknown) (unknown) Time Seen by Provider: 08/09/22 12:07 (units unknown) (unknown) (unknown) (no date) (unknown) (unknown) Total Bilirubin 1.0 (0.2-1.3) mg/dL (units unknown) (unknown) (unknown) (no date) (unknown) (unknown) Total Creatine Kinase 112 (55-170) U/L (units unknown) (unknown) (unknown) (no date) (unknown) (unknown) Total Protein 9.0 H (6.3-8.2) g/dL (units unknown) (unknown) (unknown) (no date) (unknown) (unknown) Troponin + CK Cardiac Panel Stat (units unknown) (unknown) (unknown) (no date) (unknown) (unknown) Urinalysis and Microscopic Stat (units unknown) (unknown) (unknown) (no date) (unknown) (unknown) Vital Signs - 8 hr (units unknown) (unknown) (unknown) (no date) (unknown) (unknown) Vital Signs (units unknown) (unknown) (unknown) (no date) (unknown) (unknown) Vital signs: (units unknown) (unknown) (unknown) (no date) (unknown) (unknown) WBC 5.8 (4.5-11.0) X103/uL (units unknown) (unknown) (unknown) (no date) (unknown) (unknown) XR chest 1V Stat (units unknown) (unknown) (unknown) (no date) (unknown) (unknown) [Embedded Image Not Available] (units unknown) (unknown) (unknown) (no date) (unknown) (unknown) alcohol intake frequency: 0-2 drinks per day (units unknown) (unknown) (unknown) (no date) (unknown) (unknown) alfuzosin 10 mg tablet,extended 10 mg PO QDAY ##0 02/28/17 05/09/19 (units unknown) (unknown) (unknown) (no date) (unknown) (unknown) alfuzosin [Uroxatral] 10 MG tablet extended release 24 hr (units unknown) (unknown) (unknown) (no date) (unknown) (unknown) amiodarone [AMIODARONE] Allergy Severe FACIAL Verified 05/08/19 17:47 (units unknown) (unknown) (unknown) (no date) (unknown) (unknown) atorvastatin 10 mg Tablet (units unknown) (unknown) (unknown) (no date) (unknown) (unknown) atorvastatin 10 mg tablet 10 mg PO BEDTIME 05/09/19 05/09/19 (units unknown) (unknown) (unknown) (no date) (unknown) (unknown) calcium carbonate 500 mg-vitamin 1 tab PO BID 05/09/19 05/09/19 (units unknown) (unknown) (unknown) (no date) (unknown) (unknown) calcium carbonate-vitamin D3 [Calcium 500 + D] 500 mg(1,250mg) -400 unit (units unknown) (unknown) (unknown) (no date) (unknown) (unknown) cholecalciferol (vitamin D3) 25 1,000 unit PO DAILY 05/09/19 05/09/19 (units unknown) (unknown) (unknown) (no date) (unknown) (unknown) cholecalciferol (vitamin D3) [Vitamin D3] 1,000 unit Capsule (units unknown) (unknown) (unknown) (no date) (unknown) (unknown) codeine [CODEINE] AdvReac Intermediate N/V Verified 05/08/19 17:47 (units unknown) (unknown) (unknown) (no date) (unknown) (unknown) cyanocobalamin (vitamin B-12) 100 100 mcg PO BID 05/09/19 05/09/19 (units unknown) (unknown) (unknown) (no date) (unknown) (unknown) cyanocobalamin (vitamin B-12) [Vitamin B-12] 100 mcg Tablet (units unknown) (unknown) (unknown) (no date) (unknown) (unknown) ferrous sulfate 324 mg (65 mg 324 mg PO DAILY 05/09/19 05/09/19 (units unknown) (unknown) (unknown) (no date) (unknown) (unknown) ferrous sulfate 324 mg (65 mg iron) Tablet,Delayed Release (Dr/Ec) (units unknown) (unknown) (unknown) (no date) (unknown) (unknown) fluticasone propionate 50 2 spray intranasal BID ##0 06/14/11 05/09/19 (units unknown) (unknown) (unknown) (no date) (unknown) (unknown) fluticasone propionate [Flonase Allergy Relief] 9.9 ML spray,suspension (units unknown) (unknown) (unknown) (no date) (unknown) (unknown) glucosam 750 mg-chondroi 100 2 tab PO DAILY 05/09/19 05/09/19 (units unknown) (unknown) (unknown) (no date) (unknown) (unknown) household members: spouse (units unknown) (unknown) (unknown) (no date) (unknown) (unknown) hydromorphone [HYDROMORPHONE] AdvReac Intermediate N/V Verified 05/08/19 17:47 (units unknown) (unknown) (unknown) (no date) (unknown) (unknown) iron) tablet,delayed release (units unknown) (unknown) (unknown) (no date) (unknown) (unknown) latex [LATEX] AdvReac Mild RASH Verified 05/08/19 17:47 (units unknown) (unknown) (unknown) (no date) (unknown) (unknown) magnesium citrate 100 mg Tablet (units unknown) (unknown) (unknown) (no date) (unknown) (unknown) magnesium citrate 100 mg tablet 500 mg PO BID 05/09/19 05/09/19 (units unknown) (unknown) (unknown) (no date) (unknown) (unknown) mcg (1,000 unit) capsule (Vitamin (units unknown) (unknown) (unknown) (no date) (unknown) (unknown) mcg tablet (Vitamin B-12) (units unknown) (unknown) (unknown) (no date) (unknown) (unknown) mcg/actuation nasal (units unknown) (unknown) (unknown) (no date) (unknown) (unknown) metformin 1,000 mg Tablet (units unknown) (unknown) (unknown) (no date) (unknown) (unknown) metformin 1,000 mg tablet 1,000 mg PO BID 05/09/19 05/09/19 (units unknown) (unknown) (unknown) (no date) (unknown) (unknown) metoprolol succinate 25 mg 75 mg PO DAILY 05/09/19 05/09/19 (units unknown) (unknown) (unknown) (no date) (unknown) (unknown) metoprolol succinate 25 mg Tablet Extended Release 24 Hr (units unknown) (unknown) (unknown) (no date) (unknown) (unknown) mg-hyalur 1.65 mg-CF borate 108 mg (units unknown) (unknown) (unknown) (no date) (unknown) (unknown) oxycodone [OXYCODONE] AdvReac Intermediate N/V Verified 05/08/19 17:47 (units unknown) (unknown) (unknown) (no date) (unknown) (unknown) release 24 hr (Uroxatral) (units unknown) (unknown) (unknown) (no date) (unknown) (unknown) spray,suspension (Flonase Allergy (units unknown) (unknown) (unknown) (no date) (unknown) (unknown) tablet ([facility]) (units unknown) (unknown) (unknown) (no date) (unknown) (unknown) tablet,extended release 24 hr (units unknown) (unknown) (unknown) (no date) (unknown) (unknown) warfarin 1 MG tablet (units unknown) (unknown) (unknown) (no date) (unknown) (unknown) warfarin 1 mg tablet 1.5 mg PO SEEINSTR ##0 06/05/11 05/09/19 (units unknown) (unknown) (unknown) (no date) (unknown) (unknown) warfarin 3 mg Tablet (units unknown) (unknown) (unknown) (no date) (unknown) (unknown) warfarin 3 mg tablet 3 mg PO SEEINSTR 05/09/19 05/09/19 (units unknown) (unknown) Result panel 117 (unknown) (no date) (unknown) (unknown) 1.8 (units unknown) (unknown) (unknown) (no date) (unknown) (unknown) 21.0 seconds (unknown) (unknown) (no date) (unknown) (unknown) 40 seconds (unknown) (unknown) (no date) (unknown) (unknown) 40 seconds (unknown) Result panel 118 (unknown) (no date) (unknown) (unknown) < 0.012 ng/ml (unknown) (unknown) (no date) (unknown) (unknown) < 0.012 ng/ml (unknown) (unknown) (no date) (unknown) (unknown) 1.0 mg/dl (unknown) (unknown) (no date) (unknown) (unknown) 1.23 mg/dl (unknown) (unknown) (no date) (unknown) (unknown) 1.3 (units unknown) (unknown) (unknown) (no date) (unknown) (unknown) 112 u/l (unknown) (unknown) (no date) (unknown) (unknown) 137 mmol/l (unknown) (unknown) (no date) (unknown) (unknown) 145 mg/dl (unknown) (unknown) (no date) (unknown) (unknown) 145 mg/dl (unknown) (unknown) (no date) (unknown) (unknown) 21 iu/l (unknown) (unknown) (no date) (unknown) (unknown) 23.6 (units unknown) (unknown) (unknown) (no date) (unknown) (unknown) 27 mmol/l (unknown) (unknown) (no date) (unknown) (unknown) 29 mg/dl (unknown) (unknown) (no date) (unknown) (unknown) 30 iu/l (unknown) (unknown) (no date) (unknown) (unknown) 379 u/l (unknown) (unknown) (no date) (unknown) (unknown) 4.0 g/dl (unknown) (unknown) (no date) (unknown) (unknown) 4.7 mmol/l (unknown) (unknown) (no date) (unknown) (unknown) 5.0 g/dl (unknown) (unknown) (no date) (unknown) (unknown) 57 ml/min (unknown) (unknown) (no date) (unknown) (unknown) 57 ml/min (unknown) (unknown) (no date) (unknown) (unknown) 83 u/l (unknown) (unknown) (no date) (unknown) (unknown) 9.0 g/dl (unknown) (unknown) (no date) (unknown) (unknown) 9.9 mg/dl (unknown) (unknown) (no date) (unknown) (unknown) 99 mmol/l (unknown) Result panel 119 (unknown) (no date) (unknown) (unknown) 0.04 ng/ml (unknown) (unknown) (no date) (unknown) (unknown) 0.04 ng/ml (unknown) Result panel 120 (unknown) (no date) (unknown) (unknown) < 0.012 ng/ml (unknown) (unknown) (no date) (unknown) (unknown) < 0.012 ng/ml (unknown) (unknown) (no date) (unknown) (unknown) 1.0 mg/dl (unknown) (unknown) (no date) (unknown) (unknown) 1.2 % (unknown) (unknown) (no date) (unknown) (unknown) 1.23 mg/dl (unknown) (unknown) (no date) (unknown) (unknown) 1.3 (units unknown) (unknown) (unknown) (no date) (unknown) (unknown) 1.33 ng/ml (unknown) (unknown) (no date) (unknown) (unknown) 112 u/l (unknown) (unknown) (no date) (unknown) (unknown) 137 mmol/l (unknown) (unknown) (no date) (unknown) (unknown) 145 mg/dl (unknown) (unknown) (no date) (unknown) (unknown) 145 mg/dl (unknown) (unknown) (no date) (unknown) (unknown) 21 iu/l (unknown) (unknown) (no date) (unknown) (unknown) 23.6 (units unknown) (unknown) (unknown) (no date) (unknown) (unknown) 27 mmol/l (unknown) (unknown) (no date) (unknown) (unknown) 29 mg/dl (unknown) (unknown) (no date) (unknown) (unknown) 30 iu/l (unknown) (unknown) (no date) (unknown) (unknown) 379 u/l (unknown) (unknown) (no date) (unknown) (unknown) 4.0 g/dl (unknown) (unknown) (no date) (unknown) (unknown) 4.7 mmol/l (unknown) (unknown) (no date) (unknown) (unknown) 5.0 g/dl (unknown) (unknown) (no date) (unknown) (unknown) 57 ml/min (unknown) (unknown) (no date) (unknown) (unknown) 57 ml/min (unknown) (unknown) (no date) (unknown) (unknown) 83 u/l (unknown) (unknown) (no date) (unknown) (unknown) 9.0 g/dl (unknown) (unknown) (no date) (unknown) (unknown) 9.9 mg/dl (unknown) (unknown) (no date) (unknown) (unknown) 99 mmol/l (unknown) Result panel 121 (unknown) (no date) (unknown) (unknown) (no value) (units unknown) (unknown) (unknown) (no date) (unknown) (unknown) (Calcium 500 + D) (units unknown) (unknown) (unknown) (no date) (unknown) (unknown) [id number] (units unknown) (unknown) (unknown) (no date) (unknown) (unknown) 08/09/22 08/09/22 08/09/22 Range/Units (units unknown) (unknown) (unknown) (no date) (unknown) (unknown) 08/09/22 12:01 (units unknown) (unknown) (unknown) (no date) (unknown) (unknown) 08/09/22 12:02 (units unknown) (unknown) (unknown) (no date) (unknown) (unknown) 08/09/22 12:05 (units unknown) (unknown) (unknown) (no date) (unknown) (unknown) 08/09/22 12:07 (units unknown) (unknown) (unknown) (no date) (unknown) (unknown) 08/09/22 12:08 (units unknown) (unknown) (unknown) (no date) (unknown) (unknown) 08/09/22 (units unknown) (unknown) (unknown) (no date) (unknown) (unknown) 1 tab PO BID (units unknown) (unknown) (unknown) (no date) (unknown) (unknown) 1,000 mg PO BID (units unknown) (unknown) (unknown) (no date) (unknown) (unknown) 1,000 unit PO DAILY (units unknown) (unknown) (unknown) (no date) (unknown) (unknown) 1.5 mg PO SEEINSTR Qty: 0 (units unknown) (unknown) (unknown) (no date) (unknown) (unknown) 10 mg PO BEDTIME (units unknown) (unknown) (unknown) (no date) (unknown) (unknown) 10 mg PO QDAY Qty: 0 (units unknown) (unknown) (unknown) (no date) (unknown) (unknown) 100 mcg PO BID (units unknown) (unknown) (unknown) (no date) (unknown) (unknown) 11:55 (units unknown) (unknown) (unknown) (no date) (unknown) (unknown) 12:05 12:05 12:05 (units unknown) (unknown) (unknown) (no date) (unknown) (unknown) 2 spray Intranasal BID Qty: 0 (units unknown) (unknown) (unknown) (no date) (unknown) (unknown) 2 tab PO DAILY (units unknown) (unknown) (unknown) (no date) (unknown) (unknown) 3 mg PO SEEINSTR (units unknown) (unknown) (unknown) (no date) (unknown) (unknown) 324 mg PO DAILY (units unknown) (unknown) (unknown) (no date) (unknown) (unknown) 500 mg PO BID (units unknown) (unknown) (unknown) (no date) (unknown) (unknown) 75 mg PO DAILY (units unknown) (unknown) (unknown) (no date) (unknown) (unknown) ALT 21 (<50) IU/L (units unknown) (unknown) (unknown) (no date) (unknown) (unknown) AST 30 (17-59) IU/L (units unknown) (unknown) (unknown) (no date) (unknown) (unknown) Age/Sex: 86 / M (units unknown) (unknown) (unknown) (no date) (unknown) (unknown) Albumin 5.0 (3.5-5.0) g/dL (units unknown) (unknown) (unknown) (no date) (unknown) (unknown) Albumin/Globulin Ratio 1.3 (1.0-2.8) (units unknown) (unknown) (unknown) (no date) (unknown) (unknown) Alkaline Phosphatase 83 (38-126) U/L (units unknown) (unknown) (unknown) (no date) (unknown) (unknown) Allergies (units unknown) (unknown) (unknown) (no date) (unknown) (unknown) Allergy/AdvReac Type Severity Reaction Status Date / Time (units unknown) (unknown) (unknown) (no date) (unknown) (unknown) Atrial fibrillation (units unknown) (unknown) (unknown) (no date) (unknown) (unknown) BUN 29 H (9-20) mg/dL (units unknown) (unknown) (unknown) (no date) (unknown) (unknown) BUN/Creatinine Ratio 23.6 H (6-22) (units unknown) (unknown) (unknown) (no date) (unknown) (unknown) Baso # (Auto) 100 (0-100) /uL (units unknown) (unknown) (unknown) (no date) (unknown) (unknown) Baso % (Auto) 0.9 (0-2) % (units unknown) (unknown) (unknown) (no date) (unknown) (unknown) Blood Culture Stat (units unknown) (unknown) (unknown) (no date) (unknown) (unknown) Blood Pressure 139/74 08/09/22 11:55 (units unknown) (unknown) (unknown) (no date) (unknown) (unknown) Blood Pressure 139/74 (units unknown) (unknown) (unknown) (no date) (unknown) (unknown) CT angio head and neck Stat (units unknown) (unknown) (unknown) (no date) (unknown) (unknown) CT head/brain wo con Stat (units unknown) (unknown) (unknown) (no date) (unknown) (unknown) Calcium 9.9 (8.4-10.2) mg/dL (units unknown) (unknown) (unknown) (no date) (unknown) (unknown) Carbon Dioxide 27 (22-32) mmol/L (units unknown) (unknown) (unknown) (no date) (unknown) (unknown) Chief Complaint: Neuro Symptoms/Deficit (units unknown) (unknown) (unknown) (no date) (unknown) (unknown) Chloride 99 (98-107) mmol/L (units unknown) (unknown) (unknown) (no date) (unknown) (unknown) Complete Blood Count AUTO DIFF Stat (units unknown) (unknown) (unknown) (no date) (unknown) (unknown) Comprehensive Metabolic Panel Stat (units unknown) (unknown) (unknown) (no date) (unknown) (unknown) Course (units unknown) (unknown) (unknown) (no date) (unknown) (unknown) Creatinine 1.23 (0.66-1.25) mg/dL (units unknown) (unknown) (unknown) (no date) (unknown) (unknown) D3 10 mcg (400 unit) tablet (units unknown) (unknown) (unknown) (no date) (unknown) (unknown) D3) (units unknown) (unknown) (unknown) (no date) (unknown) (unknown) : 1935 Acct:[id number] (units unknown) (unknown) (unknown) (no date) (unknown) (unknown) Date of Service: 08/09/22 (units unknown) (unknown) (unknown) (no date) (unknown) (unknown) Departure (units unknown) (unknown) (unknown) (no date) (unknown) (unknown) Discharge Plan (units unknown) (unknown) (unknown) (no date) (unknown) (unknown) ED Orders (units unknown) (unknown) (unknown) (no date) (unknown) (unknown) EKG-12 Lead Stat (units unknown) (unknown) (unknown) (no date) (unknown) (unknown) ER Physician: Eulalia Hilliard D.O. (units unknown) (unknown) (unknown) (no date) (unknown) (unknown) Emergency Report (units unknown) (unknown) (unknown) (no date) (unknown) (unknown) Eos # (Auto) 400 (0-450) /uL (units unknown) (unknown) (unknown) (no date) (unknown) (unknown) Eos % (Auto) 6.5 H (2-4) % (units unknown) (unknown) (unknown) (no date) (unknown) (unknown) Estimated GFR 57 L (>60) mL/min (units unknown) (unknown) (unknown) (no date) (unknown) (unknown) Exam (units unknown) (unknown) (unknown) (no date) (unknown) (unknown) General (units unknown) (unknown) (unknown) (no date) (unknown) (unknown) Globulin 4.0 (1.7-4.1) g/dL (units unknown) (unknown) (unknown) (no date) (unknown) (unknown) Glucose 145 H (80-110) mg/dL (units unknown) (unknown) (unknown) (no date) (unknown) (unknown) HPI - Neuro Symptoms/Deficit (units unknown) (unknown) (unknown) (no date) (unknown) (unknown) HPI Narrative: (units unknown) (unknown) (unknown) (no date) (unknown) (unknown) Hct 38.7 L (41-53) % (units unknown) (unknown) (unknown) (no date) (unknown) (unknown) Hematologic/Lymphat ic (units unknown) (unknown) (unknown) (no date) (unknown) (unknown) Hgb 13.0 L (13.5-17.5) g/dL (units unknown) (unknown) (unknown) (no date) (unknown) (unknown) History of Present Illness (units unknown) (unknown) (unknown) (no date) (unknown) (unknown) Home Medications (units unknown) (unknown) (unknown) (no date) (unknown) (unknown) Hyperglycemia (units unknown) (unknown) (unknown) (no date) (unknown) (unknown) Hypertension (units unknown) (unknown) (unknown) (no date) (unknown) (unknown) Initial Vital Signs (units unknown) (unknown) (unknown) (no date) (unknown) (unknown) Initial Vital Signs: (units unknown) (unknown) (unknown) (no date) (unknown) (unknown) [address] [address] (units unknown) (unknown) (unknown) (no date) (unknown) (unknown) Lab Data (units unknown) (unknown) (unknown) (no date) (unknown) (unknown) Lab Results (units unknown) (unknown) (unknown) (no date) (unknown) (unknown) Labs: (units unknown) (unknown) (unknown) (no date) (unknown) (unknown) Lactate (Lactic Acid) Stat (units unknown) (unknown) (unknown) (no date) (unknown) (unknown) Lactate 2.6 H (0.7-2.1) mmol/L (units unknown) (unknown) (unknown) (no date) (unknown) (unknown) Lipase 379 H (23-300) U/L (units unknown) (unknown) (unknown) (no date) (unknown) (unknown) Lipase Stat (units unknown) (unknown) (unknown) (no date) (unknown) (unknown) Lymph # (Auto) 1000 L (4875-2997) /uL (units unknown) (unknown) (unknown) (no date) (unknown) (unknown) Lymph % (Auto) 17.8 L (25-40) % (units unknown) (unknown) (unknown) (no date) (unknown) (unknown) MCH 32.7 (26-34) PG (units unknown) (unknown) (unknown) (no date) (unknown) (unknown) MCHC 33.7 (30-36) % (units unknown) (unknown) (unknown) (no date) (unknown) (unknown) MCV 97.0 (80-100) fL (units unknown) (unknown) (unknown) (no date) (unknown) (unknown) MDM - Neuro Symptoms/Deficit (units unknown) (unknown) (unknown) (no date) (unknown) (unknown) Medical History (units unknown) (unknown) (unknown) (no date) (unknown) (unknown) Medication Instructions Recorded Confirmed (units unknown) (unknown) (unknown) (no date) (unknown) (unknown) Migraines (units unknown) (unknown) (unknown) (no date) (unknown) (unknown) Mode of arrival: Ambulatory (units unknown) (unknown) (unknown) (no date) (unknown) (unknown) [place] # (Auto) 500 (0-900) /uL (units unknown) (unknown) (unknown) (no date) (unknown) (unknown) [place] % (Auto) 9.1 (3-14) % (units unknown) (unknown) (unknown) (no date) (unknown) (unknown) [facility] 750 mg-100 mg- 1.65 mg-108 mg Tablet (units unknown) (unknown) (unknown) (no date) (unknown) (unknown) Neut # (Auto) 3800 (4755-9046) /uL (units unknown) (unknown) (unknown) (no date) (unknown) (unknown) Neut % (Auto) 65.7 (50-75) % (units unknown) (unknown) (unknown) (no date) (unknown) (unknown) No Action (units unknown) (unknown) (unknown) (no date) (unknown) (unknown) On Anticoagulants: Yes (units unknown) (unknown) (unknown) (no date) (unknown) (unknown) Ordered: (units unknown) (unknown) (unknown) (no date) (unknown) (unknown) Orders (units unknown) (unknown) (unknown) (no date) (unknown) (unknown) Oxygen Delivery Method Room Air 08/09/22 11:55 (units unknown) (unknown) (unknown) (no date) (unknown) (unknown) Oxygen Delivery Method Room Air (units unknown) (unknown) (unknown) (no date) (unknown) (unknown) PTT Partial Thromboplastin [place] Stat (units unknown) (unknown) (unknown) (no date) (unknown) (unknown) Pacemaker (units unknown) (unknown) (unknown) (no date) (unknown) (unknown) Patient 86-year-old male history of atrial fibrillation on warfarin, (units unknown) (unknown) (unknown) (no date) (unknown) (unknown) Patient Comments: (units unknown) (unknown) (unknown) (no date) (unknown) (unknown) Patient History (units unknown) (unknown) (unknown) (no date) (unknown) (unknown) Patient: Mando Gomez MR#: [id number] (units unknown) (unknown) (unknown) (no date) (unknown) (unknown) Plt Count 169 (150-400) X103/uL (units unknown) (unknown) (unknown) (no date) (unknown) (unknown) Potassium 4.7 (3.4-5.1) mmol/L (units unknown) (unknown) (unknown) (no date) (unknown) (unknown) Prescriptions: (units unknown) (unknown) (unknown) (no date) (unknown) (unknown) Procalcitonin Stat (units unknown) (unknown) (unknown) (no date) (unknown) (unknown) Prothrombin Time INR Stat (units unknown) (unknown) (unknown) (no date) (unknown) (unknown) Pulse Oximetry 98 08/09/22 11:55 (units unknown) (unknown) (unknown) (no date) (unknown) (unknown) Pulse Oximetry 98 (units unknown) (unknown) (unknown) (no date) (unknown) (unknown) Pulse Rate 80 08/09/22 11:55 (units unknown) (unknown) (unknown) (no date) (unknown) (unknown) Pulse Rate 80 (units unknown) (unknown) (unknown) (no date) (unknown) (unknown) RBC 3.98 L (4.5-5.9) X106/uL (units unknown) (unknown) (unknown) (no date) (unknown) (unknown) RDW 14.4 (11.6-14.8) % (units unknown) (unknown) (unknown) (no date) (unknown) (unknown) Referrals: (units unknown) (unknown) (unknown) (no date) (unknown) (unknown) Related Data (units unknown) (unknown) (unknown) (no date) (unknown) (unknown) Relief) (units unknown) (unknown) (unknown) (no date) (unknown) (unknown) Respiratory Rate 16 08/09/22 11:55 (units unknown) (unknown) (unknown) (no date) (unknown) (unknown) Respiratory Rate 16 (units unknown) (unknown) (unknown) (no date) (unknown) (unknown) Review of Systems (units unknown) (unknown) (unknown) (no date) (unknown) (unknown) Rx Instructions: (units unknown) (unknown) (unknown) (no date) (unknown) (unknown) SWELLING (units unknown) (unknown) (unknown) (no date) (unknown) (unknown) Signed By: (units unknown) (unknown) (unknown) (no date) (unknown) (unknown) Smoking Status: Never smoker (units unknown) (unknown) (unknown) (no date) (unknown) (unknown) Social History (units unknown) (unknown) (unknown) (no date) (unknown) (unknown) Sodium 137 (137-145) mmol/L (units unknown) (unknown) (unknown) (no date) (unknown) (unknown) Sodium Chloride (Normal Saline 0.9%) 1,000 mls @ 150 mls/hr IV CONT PREET (units unknown) (unknown) (unknown) (no date) (unknown) (unknown) Source: family (units unknown) (unknown) (unknown) (no date) (unknown) (unknown) Stated Complaint: sent by DR naik he had a stroke (units unknown) (unknown) (unknown) (no date) (unknown) (unknown) Substance Use Type: does not use (units unknown) (unknown) (unknown) (no date) (unknown) (unknown) Clari Pacheco MD [Primary Care Provider] (units unknown) (unknown) (unknown) (no date) (unknown) (unknown) Tablet (units unknown) (unknown) (unknown) (no date) (unknown) (unknown) Takes 1.5 mg on Tuesdays and Saturdays (units unknown) (unknown) (unknown) (no date) (unknown) (unknown) Takes 3 mg on Saturday, Saturday, , Saturday and Saturday (units unknown) (unknown) (unknown) (no date) (unknown) (unknown) Temperature 97.6 F 08/09/22 11:55 (units unknown) (unknown) (unknown) (no date) (unknown) (unknown) Temperature 97.6 F (units unknown) (unknown) (unknown) (no date) (unknown) (unknown) Time Seen by Provider: 08/09/22 12:07 (units unknown) (unknown) (unknown) (no date) (unknown) (unknown) Total Bilirubin 1.0 (0.2-1.3) mg/dL (units unknown) (unknown) (unknown) (no date) (unknown) (unknown) Total Creatine Kinase 112 (55-170) U/L (units unknown) (unknown) (unknown) (no date) (unknown) (unknown) Total Protein 9.0 H (6.3-8.2) g/dL (units unknown) (unknown) (unknown) (no date) (unknown) (unknown) Troponin + CK Cardiac Panel Stat (units unknown) (unknown) (unknown) (no date) (unknown) (unknown) Urinalysis and Microscopic Stat (units unknown) (unknown) (unknown) (no date) (unknown) (unknown) Vital Signs - 8 hr (units unknown) (unknown) (unknown) (no date) (unknown) (unknown) Vital Signs (units unknown) (unknown) (unknown) (no date) (unknown) (unknown) Vital signs: (units unknown) (unknown) (unknown) (no date) (unknown) (unknown) WBC 5.8 (4.5-11.0) X103/uL (units unknown) (unknown) (unknown) (no date) (unknown) (unknown) XR chest 1V Stat (units unknown) (unknown) (unknown) (no date) (unknown) (unknown) [Embedded Image Not Available] (units unknown) (unknown) (unknown) (no date) (unknown) (unknown) alcohol intake frequency: 0-2 drinks per day (units unknown) (unknown) (unknown) (no date) (unknown) (unknown) alfuzosin 10 mg tablet,extended 10 mg PO QDAY ##0 02/28/17 05/09/19 (units unknown) (unknown) (unknown) (no date) (unknown) (unknown) alfuzosin [Uroxatral] 10 MG tablet extended release 24 hr (units unknown) (unknown) (unknown) (no date) (unknown) (unknown) amiodarone [AMIODARONE] Allergy Severe FACIAL Verified 05/08/19 17:47 (units unknown) (unknown) (unknown) (no date) (unknown) (unknown) atorvastatin 10 mg Tablet (units unknown) (unknown) (unknown) (no date) (unknown) (unknown) atorvastatin 10 mg tablet 10 mg PO BEDTIME 05/09/19 05/09/19 (units unknown) (unknown) (unknown) (no date) (unknown) (unknown) calcium carbonate 500 mg-vitamin 1 tab PO BID 05/09/19 05/09/19 (units unknown) (unknown) (unknown) (no date) (unknown) (unknown) calcium carbonate-vitamin D3 [Calcium 500 + D] 500 mg(1,250mg) -400 unit (units unknown) (unknown) (unknown) (no date) (unknown) (unknown) cholecalciferol (vitamin D3) 25 1,000 unit PO DAILY 05/09/19 05/09/19 (units unknown) (unknown) (unknown) (no date) (unknown) (unknown) cholecalciferol (vitamin D3) [Vitamin D3] 1,000 unit Capsule (units unknown) (unknown) (unknown) (no date) (unknown) (unknown) codeine [CODEINE] AdvReac Intermediate N/V Verified 05/08/19 17:47 (units unknown) (unknown) (unknown) (no date) (unknown) (unknown) cyanocobalamin (vitamin B-12) 100 100 mcg PO BID 05/09/19 05/09/19 (units unknown) (unknown) (unknown) (no date) (unknown) (unknown) cyanocobalamin (vitamin B-12) [Vitamin B-12] 100 mcg Tablet (units unknown) (unknown) (unknown) (no date) (unknown) (unknown) ferrous sulfate 324 mg (65 mg 324 mg PO DAILY 05/09/19 05/09/19 (units unknown) (unknown) (unknown) (no date) (unknown) (unknown) ferrous sulfate 324 mg (65 mg iron) Tablet,Delayed Release (Dr/Ec) (units unknown) (unknown) (unknown) (no date) (unknown) (unknown) fluticasone propionate 50 2 spray intranasal BID ##0 06/14/11 05/09/19 (units unknown) (unknown) (unknown) (no date) (unknown) (unknown) fluticasone propionate [Flonase Allergy Relief] 9.9 ML spray,suspension (units unknown) (unknown) (unknown) (no date) (unknown) (unknown) glucosam 750 mg-chondroi 100 2 tab PO DAILY 05/09/19 05/09/19 (units unknown) (unknown) (unknown) (no date) (unknown) (unknown) household members: spouse (units unknown) (unknown) (unknown) (no date) (unknown) (unknown) hydromorphone [HYDROMORPHONE] AdvReac Intermediate N/V Verified 05/08/19 17:47 (units unknown) (unknown) (unknown) (no date) (unknown) (unknown) iron) tablet,delayed release (units unknown) (unknown) (unknown) (no date) (unknown) (unknown) latex [LATEX] AdvReac Mild RASH Verified 05/08/19 17:47 (units unknown) (unknown) (unknown) (no date) (unknown) (unknown) magnesium citrate 100 mg Tablet (units unknown) (unknown) (unknown) (no date) (unknown) (unknown) magnesium citrate 100 mg tablet 500 mg PO BID 05/09/19 05/09/19 (units unknown) (unknown) (unknown) (no date) (unknown) (unknown) mcg (1,000 unit) capsule (Vitamin (units unknown) (unknown) (unknown) (no date) (unknown) (unknown) mcg tablet (Vitamin B-12) (units unknown) (unknown) (unknown) (no date) (unknown) (unknown) mcg/actuation nasal (units unknown) (unknown) (unknown) (no date) (unknown) (unknown) metformin 1,000 mg Tablet (units unknown) (unknown) (unknown) (no date) (unknown) (unknown) metformin 1,000 mg tablet 1,000 mg PO BID 05/09/19 05/09/19 (units unknown) (unknown) (unknown) (no date) (unknown) (unknown) metoprolol succinate 25 mg 75 mg PO DAILY 05/09/19 05/09/19 (units unknown) (unknown) (unknown) (no date) (unknown) (unknown) metoprolol succinate 25 mg Tablet Extended Release 24 Hr (units unknown) (unknown) (unknown) (no date) (unknown) (unknown) mg-hyalur 1.65 mg-CF borate 108 mg (units unknown) (unknown) (unknown) (no date) (unknown) (unknown) oxycodone [OXYCODONE] AdvReac Intermediate N/V Verified 05/08/19 17:47 (units unknown) (unknown) (unknown) (no date) (unknown) (unknown) release 24 hr (Uroxatral) (units unknown) (unknown) (unknown) (no date) (unknown) (unknown) spray,suspension (Flonase Allergy (units unknown) (unknown) (unknown) (no date) (unknown) (unknown) tablet ([facility]) (units unknown) (unknown) (unknown) (no date) (unknown) (unknown) tablet,extended release 24 hr (units unknown) (unknown) (unknown) (no date) (unknown) (unknown) warfarin 1 MG tablet (units unknown) (unknown) (unknown) (no date) (unknown) (unknown) warfarin 1 mg tablet 1.5 mg PO SEEINSTR ##0 06/05/11 05/09/19 (units unknown) (unknown) (unknown) (no date) (unknown) (unknown) warfarin 3 mg Tablet (units unknown) (unknown) (unknown) (no date) (unknown) (unknown) warfarin 3 mg tablet 3 mg PO SEEINSTR 05/09/19 05/09/19 (units unknown) (unknown) Result panel 122 (unknown) (no date) (unknown) (unknown) (no value) (units unknown) (unknown) (unknown) (no date) (unknown) (unknown) (Calcium 500 + D) (units unknown) (unknown) (unknown) (no date) (unknown) (unknown) [id number] (units unknown) (unknown) (unknown) (no date) (unknown) (unknown) 08/09/22 08/09/22 08/09/22 Range/Units (units unknown) (unknown) (unknown) (no date) (unknown) (unknown) 08/09/22 12:01 (units unknown) (unknown) (unknown) (no date) (unknown) (unknown) 08/09/22 12:02 (units unknown) (unknown) (unknown) (no date) (unknown) (unknown) 08/09/22 12:05 (units unknown) (unknown) (unknown) (no date) (unknown) (unknown) 08/09/22 12:07 (units unknown) (unknown) (unknown) (no date) (unknown) (unknown) 08/09/22 12:08 (units unknown) (unknown) (unknown) (no date) (unknown) (unknown) 08/09/22 (units unknown) (unknown) (unknown) (no date) (unknown) (unknown) 1 tab PO BID (units unknown) (unknown) (unknown) (no date) (unknown) (unknown) 1,000 mg PO BID (units unknown) (unknown) (unknown) (no date) (unknown) (unknown) 1,000 unit PO DAILY (units unknown) (unknown) (unknown) (no date) (unknown) (unknown) 1.5 mg PO SEEINSTR Qty: 0 (units unknown) (unknown) (unknown) (no date) (unknown) (unknown) 10 mg PO BEDTIME (units unknown) (unknown) (unknown) (no date) (unknown) (unknown) 10 mg PO QDAY Qty: 0 (units unknown) (unknown) (unknown) (no date) (unknown) (unknown) 100 mcg PO BID (units unknown) (unknown) (unknown) (no date) (unknown) (unknown) 11:55 (units unknown) (unknown) (unknown) (no date) (unknown) (unknown) 12:05 12:05 12:05 (units unknown) (unknown) (unknown) (no date) (unknown) (unknown) 2 spray Intranasal BID Qty: 0 (units unknown) (unknown) (unknown) (no date) (unknown) (unknown) 2 tab PO DAILY (units unknown) (unknown) (unknown) (no date) (unknown) (unknown) 3 mg PO SEEINSTR (units unknown) (unknown) (unknown) (no date) (unknown) (unknown) 324 mg PO DAILY (units unknown) (unknown) (unknown) (no date) (unknown) (unknown) 500 mg PO BID (units unknown) (unknown) (unknown) (no date) (unknown) (unknown) 75 mg PO DAILY (units unknown) (unknown) (unknown) (no date) (unknown) (unknown) ABDOMEN: Soft, nontender. Normoactive bowel sounds all 4 quadrants. No (units unknown) (unknown) (unknown) (no date) (unknown) (unknown) ALT 21 (<50) IU/L (units unknown) (unknown) (unknown) (no date) (unknown) (unknown) AST 30 (17-59) IU/L (units unknown) (unknown) (unknown) (no date) (unknown) (unknown) Age/Sex: 86 / M (units unknown) (unknown) (unknown) (no date) (unknown) (unknown) Albumin 5.0 (3.5-5.0) g/dL (units unknown) (unknown) (unknown) (no date) (unknown) (unknown) Albumin/Globulin Ratio 1.3 (1.0-2.8) (units unknown) (unknown) (unknown) (no date) (unknown) (unknown) Alkaline Phosphatase 83 (38-126) U/L (units unknown) (unknown) (unknown) (no date) (unknown) (unknown) Allergies (units unknown) (unknown) (unknown) (no date) (unknown) (unknown) Allergy/AdvReac Type Severity Reaction Status Date / Time (units unknown) (unknown) (unknown) (no date) (unknown) (unknown) Atrial fibrillation rate 78 ST depression and T-wave inversion noted in lead 3 (units unknown) (unknown) (unknown) (no date) (unknown) (unknown) Atrial fibrillation (units unknown) (unknown) (unknown) (no date) (unknown) (unknown) BUN 29 H (9-20) mg/dL (units unknown) (unknown) (unknown) (no date) (unknown) (unknown) BUN/Creatinine Ratio 23.6 H (6-22) (units unknown) (unknown) (unknown) (no date) (unknown) (unknown) Baso # (Auto) 100 (0-100) /uL (units unknown) (unknown) (unknown) (no date) (unknown) (unknown) Baso % (Auto) 0.9 (0-2) % (units unknown) (unknown) (unknown) (no date) (unknown) (unknown) Blood Culture Stat (units unknown) (unknown) (unknown) (no date) (unknown) (unknown) Blood Pressure 139/74 08/09/22 11:55 (units unknown) (unknown) (unknown) (no date) (unknown) (unknown) Blood Pressure 139/74 (units unknown) (unknown) (unknown) (no date) (unknown) (unknown) CARDIOVASCULAR: Regular rate and rhythm without murmurs, rubs or gallops. (units unknown) (unknown) (unknown) (no date) (unknown) (unknown) CT angio head and neck Stat (units unknown) (unknown) (unknown) (no date) (unknown) (unknown) CT head/brain wo con Stat (units unknown) (unknown) (unknown) (no date) (unknown) (unknown) Calcium 9.9 (8.4-10.2) mg/dL (units unknown) (unknown) (unknown) (no date) (unknown) (unknown) Carbon Dioxide 27 (22-32) mmol/L (units unknown) (unknown) (unknown) (no date) (unknown) (unknown) Chief Complaint: Neuro Symptoms/Deficit (units unknown) (unknown) (unknown) (no date) (unknown) (unknown) Chloride 99 (98-107) mmol/L (units unknown) (unknown) (unknown) (no date) (unknown) (unknown) Complete Blood Count AUTO DIFF Stat (units unknown) (unknown) (unknown) (no date) (unknown) (unknown) Comprehensive Metabolic Panel Stat (units unknown) (unknown) (unknown) (no date) (unknown) (unknown) Course (units unknown) (unknown) (unknown) (no date) (unknown) (unknown) Creatinine 1.23 (0.66-1.25) mg/dL (units unknown) (unknown) (unknown) (no date) (unknown) (unknown) D3 10 mcg (400 unit) tablet (units unknown) (unknown) (unknown) (no date) (unknown) (unknown) D3) (units unknown) (unknown) (unknown) (no date) (unknown) (unknown) : 1935 Acct:[id number] (units unknown) (unknown) (unknown) (no date) (unknown) (unknown) Date of Service: 08/09/22 (units unknown) (unknown) (unknown) (no date) (unknown) (unknown) Departure (units unknown) (unknown) (unknown) (no date) (unknown) (unknown) Discharge Plan (units unknown) (unknown) (unknown) (no date) (unknown) (unknown) ECG Data (units unknown) (unknown) (unknown) (no date) (unknown) (unknown) ED Orders (units unknown) (unknown) (unknown) (no date) (unknown) (unknown) EKG-12 Lead Stat (units unknown) (unknown) (unknown) (no date) (unknown) (unknown) ER Physician: Eulalia Hilliard D.O. (units unknown) (unknown) (unknown) (no date) (unknown) (unknown) EXTREMITIES: Normal range of motion, no clubbing or edema. Neurovascularly (units unknown) (unknown) (unknown) (no date) (unknown) (unknown) Emergency Report (units unknown) (unknown) (unknown) (no date) (unknown) (unknown) Eos # (Auto) 400 (0-450) /uL (units unknown) (unknown) (unknown) (no date) (unknown) (unknown) Eos % (Auto) 6.5 H (2-4) % (units unknown) (unknown) (unknown) (no date) (unknown) (unknown) Estimated GFR 57 L (>60) mL/min (units unknown) (unknown) (unknown) (no date) (unknown) (unknown) Exam (units unknown) (unknown) (unknown) (no date) (unknown) (unknown) GENERAL: Alert pleasantly confused 86-year-old male and in no acute distress. (units unknown) (unknown) (unknown) (no date) (unknown) (unknown) General (units unknown) (unknown) (unknown) (no date) (unknown) (unknown) Globulin 4.0 (1.7-4.1) g/dL (units unknown) (unknown) (unknown) (no date) (unknown) (unknown) Glucose 145 H (80-110) mg/dL (units unknown) (unknown) (unknown) (no date) (unknown) (unknown) HEENT: Head atraumatic,EOMI, pupils reactive, face symmetric, moist mucous (units unknown) (unknown) (unknown) (no date) (unknown) (unknown) HPI - Neuro Symptoms/Deficit (units unknown) (unknown) (unknown) (no date) (unknown) (unknown) HPI Narrative: (units unknown) (unknown) (unknown) (no date) (unknown) (unknown) Hct 38.7 L (41-53) % (units unknown) (unknown) (unknown) (no date) (unknown) (unknown) He is able to follow commands but is confused. No abdominal pain no nausea or (units unknown) (unknown) (unknown) (no date) (unknown) (unknown) Hematologic/Lymphat ic (units unknown) (unknown) (unknown) (no date) (unknown) (unknown) Hgb 13.0 L (13.5-17.5) g/dL (units unknown) (unknown) (unknown) (no date) (unknown) (unknown) History of Present Illness (units unknown) (unknown) (unknown) (no date) (unknown) (unknown) Home Medications (units unknown) (unknown) (unknown) (no date) (unknown) (unknown) Hyperglycemia (units unknown) (unknown) (unknown) (no date) (unknown) (unknown) Hypertension (units unknown) (unknown) (unknown) (no date) (unknown) (unknown) Initial Vital Signs (units unknown) (unknown) (unknown) (no date) (unknown) (unknown) Initial Vital Signs: (units unknown) (unknown) (unknown) (no date) (unknown) (unknown) Interpretation: (units unknown) (unknown) (unknown) (no date) (unknown) (unknown) [address] [place] [address] (units unknown) (unknown) (unknown) (no date) (unknown) (unknown) Lab Data (units unknown) (unknown) (unknown) (no date) (unknown) (unknown) Lab Results (units unknown) (unknown) (unknown) (no date) (unknown) (unknown) Labs: (units unknown) (unknown) (unknown) (no date) (unknown) (unknown) Lactate (Lactic Acid) Stat (units unknown) (unknown) (unknown) (no date) (unknown) (unknown) Lactate 2.6 H (0.7-2.1) mmol/L (units unknown) (unknown) (unknown) (no date) (unknown) (unknown) Lipase 379 H (23-300) U/L (units unknown) (unknown) (unknown) (no date) (unknown) (unknown) Lipase Stat (units unknown) (unknown) (unknown) (no date) (unknown) (unknown) Lymph # (Auto) 1000 L (4224-6059) /uL (units unknown) (unknown) (unknown) (no date) (unknown) (unknown) Lymph % (Auto) 17.8 L (25-40) % (units unknown) (unknown) (unknown) (no date) (unknown) (unknown) MCH 32.7 (26-34) PG (units unknown) (unknown) (unknown) (no date) (unknown) (unknown) MCHC 33.7 (30-36) % (units unknown) (unknown) (unknown) (no date) (unknown) (unknown) MCV 97.0 (80-100) fL (units unknown) (unknown) (unknown) (no date) (unknown) (unknown) MDM - Neuro Symptoms/Deficit (units unknown) (unknown) (unknown) (no date) (unknown) (unknown) Medical History (units unknown) (unknown) (unknown) (no date) (unknown) (unknown) Medication Instructions Recorded Confirmed (units unknown) (unknown) (unknown) (no date) (unknown) (unknown) Migraines (units unknown) (unknown) (unknown) (no date) (unknown) (unknown) Mode of arrival: Ambulatory (units unknown) (unknown) (unknown) (no date) (unknown) (unknown) [place] # (Auto) 500 (0-900) /uL (units unknown) (unknown) (unknown) (no date) (unknown) (unknown) [place] % (Auto) 9.1 (3-14) % (units unknown) (unknown) (unknown) (no date) (unknown) (unknown) [facility] 750 mg-100 mg- 1.65 mg-108 mg Tablet (units unknown) (unknown) (unknown) (no date) (unknown) (unknown) NEUROLOGICAL: Alert and oriented x1.Normal gait and speech. Cranial nerves II (units unknown) (unknown) (unknown) (no date) (unknown) (unknown) Neut # (Auto) 3800 (6174-1442) /uL (units unknown) (unknown) (unknown) (no date) (unknown) (unknown) Neut % (Auto) 65.7 (50-75) % (units unknown) (unknown) (unknown) (no date) (unknown) (unknown) No Action (units unknown) (unknown) (unknown) (no date) (unknown) (unknown) On Anticoagulants: Yes (units unknown) (unknown) (unknown) (no date) (unknown) (unknown) Ordered: (units unknown) (unknown) (unknown) (no date) (unknown) (unknown) Orders (units unknown) (unknown) (unknown) (no date) (unknown) (unknown) Oxygen Delivery Method Room Air 08/09/22 11:55 (units unknown) (unknown) (unknown) (no date) (unknown) (unknown) Oxygen Delivery Method Room Air (units unknown) (unknown) (unknown) (no date) (unknown) (unknown) PTT Partial Thromboplastin [place] Stat (units unknown) (unknown) (unknown) (no date) (unknown) (unknown) Pacemaker (units unknown) (unknown) (unknown) (no date) (unknown) (unknown) Patient 86-year-old male history of atrial fibrillation on warfarin, presents (units unknown) (unknown) (unknown) (no date) (unknown) (unknown) Patient Comments: (units unknown) (unknown) (unknown) (no date) (unknown) (unknown) Patient History (units unknown) (unknown) (unknown) (no date) (unknown) (unknown) Patient: Mando Gomez MR#: [id number] (units unknown) (unknown) (unknown) (no date) (unknown) (unknown) Plt Count 169 (150-400) X103/uL (units unknown) (unknown) (unknown) (no date) (unknown) (unknown) Potassium 4.7 (3.4-5.1) mmol/L (units unknown) (unknown) (unknown) (no date) (unknown) (unknown) Prescriptions: (units unknown) (unknown) (unknown) (no date) (unknown) (unknown) Procalcitonin Stat (units unknown) (unknown) (unknown) (no date) (unknown) (unknown) Prothrombin Time INR Stat (units unknown) (unknown) (unknown) (no date) (unknown) (unknown) Pulse Oximetry 98 08/09/22 11:55 (units unknown) (unknown) (unknown) (no date) (unknown) (unknown) Pulse Oximetry 98 (units unknown) (unknown) (unknown) (no date) (unknown) (unknown) Pulse Rate 80 08/09/22 11:55 (units unknown) (unknown) (unknown) (no date) (unknown) (unknown) Pulse Rate 80 (units unknown) (unknown) (unknown) (no date) (unknown) (unknown) RBC 3.98 L (4.5-5.9) X106/uL (units unknown) (unknown) (unknown) (no date) (unknown) (unknown) RDW 14.4 (11.6-14.8) % (units unknown) (unknown) (unknown) (no date) (unknown) (unknown) RESPIRATORY: Breath sounds equal bilaterally, no wheezes rales or rhonchi. (units unknown) (unknown) (unknown) (no date) (unknown) (unknown) ROS Unobtainable: All systems reviewed + are unremarkable except as noted in HPI (units unknown) (unknown) (unknown) (no date) (unknown) (unknown) Referrals: (units unknown) (unknown) (unknown) (no date) (unknown) (unknown) Related Data (units unknown) (unknown) (unknown) (no date) (unknown) (unknown) Relief) (units unknown) (unknown) (unknown) (no date) (unknown) (unknown) Respiratory Rate 16 08/09/22 11:55 (units unknown) (unknown) (unknown) (no date) (unknown) (unknown) Respiratory Rate 16 (units unknown) (unknown) (unknown) (no date) (unknown) (unknown) Review of Systems (units unknown) (unknown) (unknown) (no date) (unknown) (unknown) Rx Instructions: (units unknown) (unknown) (unknown) (no date) (unknown) (unknown) SKIN: Warm, dry, no laceration, no petechiae, no rashes or lesions. (units unknown) (unknown) (unknown) (no date) (unknown) (unknown) SWELLING (units unknown) (unknown) (unknown) (no date) (unknown) (unknown) Signed By: (units unknown) (unknown) (unknown) (no date) (unknown) (unknown) Smoking Status: Never smoker (units unknown) (unknown) (unknown) (no date) (unknown) (unknown) Social History (units unknown) (unknown) (unknown) (no date) (unknown) (unknown) Sodium 137 (137-145) mmol/L (units unknown) (unknown) (unknown) (no date) (unknown) (unknown) Sodium Chloride (Normal Saline 0.9%) 1,000 mls @ 150 mls/hr IV CONT PREET (units unknown) (unknown) (unknown) (no date) (unknown) (unknown) Source: family (units unknown) (unknown) (unknown) (no date) (unknown) (unknown) Stated Complaint: sent by DR naik he had a stroke (units unknown) (unknown) (unknown) (no date) (unknown) (unknown) Substance Use Type: does not use (units unknown) (unknown) (unknown) (no date) (unknown) (unknown) Clari Pacheco MD [Primary Care Provider] (units unknown) (unknown) (unknown) (no date) (unknown) (unknown) Tablet (units unknown) (unknown) (unknown) (no date) (unknown) (unknown) Takes 1.5 mg on Tuesdays and Saturdays (units unknown) (unknown) (unknown) (no date) (unknown) (unknown) Takes 3 mg on Saturday, Saturday, , Saturday and Saturday (units unknown) (unknown) (unknown) (no date) (unknown) (unknown) Temperature 97.6 F 08/09/22 11:55 (units unknown) (unknown) (unknown) (no date) (unknown) (unknown) Temperature 97.6 F (units unknown) (unknown) (unknown) (no date) (unknown) (unknown) Time Seen by Provider: 08/09/22 12:07 (units unknown) (unknown) (unknown) (no date) (unknown) (unknown) Total Bilirubin 1.0 (0.2-1.3) mg/dL (units unknown) (unknown) (unknown) (no date) (unknown) (unknown) Total Creatine Kinase 112 (55-170) U/L (units unknown) (unknown) (unknown) (no date) (unknown) (unknown) Total Protein 9.0 H (6.3-8.2) g/dL (units unknown) (unknown) (unknown) (no date) (unknown) (unknown) Troponin + CK Cardiac Panel Stat (units unknown) (unknown) (unknown) (no date) (unknown) (unknown) Urinalysis and Microscopic Stat (units unknown) (unknown) (unknown) (no date) (unknown) (unknown) Vital Signs - 8 hr (units unknown) (unknown) (unknown) (no date) (unknown) (unknown) Vital Signs (units unknown) (unknown) (unknown) (no date) (unknown) (unknown) Vital signs: (units unknown) (unknown) (unknown) (no date) (unknown) (unknown) WBC 5.8 (4.5-11.0) X103/uL (units unknown) (unknown) (unknown) (no date) (unknown) (unknown) XR chest 1V Stat (units unknown) (unknown) (unknown) (no date) (unknown) (unknown) [Embedded Image Not Available] (units unknown) (unknown) (unknown) (no date) (unknown) (unknown) alcohol intake frequency: 0-2 drinks per day (units unknown) (unknown) (unknown) (no date) (unknown) (unknown) alfuzosin 10 mg tablet,extended 10 mg PO QDAY ##0 02/28/17 05/09/19 (units unknown) (unknown) (unknown) (no date) (unknown) (unknown) alfuzosin [Uroxatral] 10 MG tablet extended release 24 hr (units unknown) (unknown) (unknown) (no date) (unknown) (unknown) amiodarone [AMIODARONE] Allergy Severe FACIAL Verified 05/08/19 17:47 (units unknown) (unknown) (unknown) (no date) (unknown) (unknown) and below (units unknown) (unknown) (unknown) (no date) (unknown) (unknown) atorvastatin 10 mg Tablet (units unknown) (unknown) (unknown) (no date) (unknown) (unknown) atorvastatin 10 mg tablet 10 mg PO BEDTIME 05/09/19 05/09/19 (units unknown) (unknown) (unknown) (no date) (unknown) (unknown) bilaterally, no visual changes, no facial droop (units unknown) (unknown) (unknown) (no date) (unknown) (unknown) calcium carbonate 500 mg-vitamin 1 tab PO BID 05/09/19 05/09/19 (units unknown) (unknown) (unknown) (no date) (unknown) (unknown) calcium carbonate-vitamin D3 [Calcium 500 + D] 500 mg(1,250mg) -400 unit (units unknown) (unknown) (unknown) (no date) (unknown) (unknown) cholecalciferol (vitamin D3) 25 1,000 unit PO DAILY 05/09/19 05/09/19 (units unknown) (unknown) (unknown) (no date) (unknown) (unknown) cholecalciferol (vitamin D3) [Vitamin D3] 1,000 unit Capsule (units unknown) (unknown) (unknown) (no date) (unknown) (unknown) codeine [CODEINE] AdvReac Intermediate N/V Verified 05/08/19 17:47 (units unknown) (unknown) (unknown) (no date) (unknown) (unknown) confusion however last night it got significantly worse seems to remain the same (units unknown) (unknown) (unknown) (no date) (unknown) (unknown) cyanocobalamin (vitamin B-12) 100 100 mcg PO BID 05/09/19 05/09/19 (units unknown) (unknown) (unknown) (no date) (unknown) (unknown) cyanocobalamin (vitamin B-12) [Vitamin B-12] 100 mcg Tablet (units unknown) (unknown) (unknown) (no date) (unknown) (unknown) equal bilaterally, no dysarthria or aphasia, sensation in tact to soft touch (units unknown) (unknown) (unknown) (no date) (unknown) (unknown) ferrous sulfate 324 mg (65 mg 324 mg PO DAILY 05/09/19 05/09/19 (units unknown) (unknown) (unknown) (no date) (unknown) (unknown) ferrous sulfate 324 mg (65 mg iron) Tablet,Delayed Release (Dr/Ec) (units unknown) (unknown) (unknown) (no date) (unknown) (unknown) fluticasone propionate 50 2 spray intranasal BID ##0 06/14/11 05/09/19 (units unknown) (unknown) (unknown) (no date) (unknown) (unknown) fluticasone propionate [Flonase Allergy Relief] 9.9 ML spray,suspension (units unknown) (unknown) (unknown) (no date) (unknown) (unknown) glucosam 750 mg-chondroi 100 2 tab PO DAILY 05/09/19 05/09/19 (units unknown) (unknown) (unknown) (no date) (unknown) (unknown) guarding or rebound. (units unknown) (unknown) (unknown) (no date) (unknown) (unknown) household members: spouse (units unknown) (unknown) (unknown) (no date) (unknown) (unknown) hydromorphone [HYDROMORPHONE] AdvReac Intermediate N/V Verified 05/08/19 17:47 (units unknown) (unknown) (unknown) (no date) (unknown) (unknown) intact (units unknown) (unknown) (unknown) (no date) (unknown) (unknown) iron) tablet,delayed release (units unknown) (unknown) (unknown) (no date) (unknown) (unknown) latex [LATEX] AdvReac Mild RASH Verified 05/08/19 17:47 (units unknown) (unknown) (unknown) (no date) (unknown) (unknown) magnesium citrate 100 mg Tablet (units unknown) (unknown) (unknown) (no date) (unknown) (unknown) magnesium citrate 100 mg tablet 500 mg PO BID 05/09/19 05/09/19 (units unknown) (unknown) (unknown) (no date) (unknown) (unknown) mcg (1,000 unit) capsule (Vitamin (units unknown) (unknown) (unknown) (no date) (unknown) (unknown) mcg tablet (Vitamin B-12) (units unknown) (unknown) (unknown) (no date) (unknown) (unknown) mcg/actuation nasal (units unknown) (unknown) (unknown) (no date) (unknown) (unknown) membranes (units unknown) (unknown) (unknown) (no date) (unknown) (unknown) metformin 1,000 mg Tablet (units unknown) (unknown) (unknown) (no date) (unknown) (unknown) metformin 1,000 mg tablet 1,000 mg PO BID 05/09/19 05/09/19 (units unknown) (unknown) (unknown) (no date) (unknown) (unknown) metoprolol succinate 25 mg 75 mg PO DAILY 05/09/19 05/09/19 (units unknown) (unknown) (unknown) (no date) (unknown) (unknown) metoprolol succinate 25 mg Tablet Extended Release 24 Hr (units unknown) (unknown) (unknown) (no date) (unknown) (unknown) mg-hyalur 1.65 mg-CF borate 108 mg (units unknown) (unknown) (unknown) (no date) (unknown) (unknown) no ST elevations previous EKG showed a paced rhythm. That was 2017 reports (units unknown) (unknown) (unknown) (no date) (unknown) (unknown) oxycodone [OXYCODONE] AdvReac Intermediate N/V Verified 05/08/19 17:47 (units unknown) (unknown) (unknown) (no date) (unknown) (unknown) release 24 hr (Uroxatral) (units unknown) (unknown) (unknown) (no date) (unknown) (unknown) spray,suspension (Flonase Allergy (units unknown) (unknown) (unknown) (no date) (unknown) (unknown) tablet ([employer] [place]) (units unknown) (unknown) (unknown) (no date) (unknown) (unknown) tablet,extended release 24 hr (units unknown) (unknown) (unknown) (no date) (unknown) (unknown) that he 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 (units unknown) (unknown) (unknown) (no date) (unknown) (unknown) through XII grossly intact. Good [id number], good [id number], strength (units unknown) (unknown) (unknown) (no date) (unknown) (unknown) today with confusion that started last night. states that he may have some (units unknown) (unknown) (unknown) (no date) (unknown) (unknown) today. No fever chills he does not of any chest pain or shortness of breath. (units unknown) (unknown) (unknown) (no date) (unknown) (unknown) vomiting. He apparently was sent here by his PCP for rule out of stroke (units unknown) (unknown) (unknown) (no date) (unknown) (unknown) warfarin 1 MG tablet (units unknown) (unknown) (unknown) (no date) (unknown) (unknown) warfarin 1 mg tablet 1.5 mg PO SEEINSTR ##0 06/05/11 05/09/19 (units unknown) (unknown) (unknown) (no date) (unknown) (unknown) warfarin 3 mg Tablet (units unknown) (unknown) (unknown) (no date) (unknown) (unknown) warfarin 3 mg tablet 3 mg PO SEEINSTR 05/09/19 05/09/19 (units unknown) (unknown) Result panel 123 (unknown) (no date) (unknown) (unknown) <=1.005 (units unknown) (unknown) (unknown) (no date) (unknown) (unknown) 0.2 e.u./dl (unknown) (unknown) (no date) (unknown) (unknown) 6.0 (units unknown) (unknown) (unknown) (no date) (unknown) (unknown) CLEAR (units unknown) (unknown) (unknown) (no date) (unknown) (unknown) NEGATIVE (units unknown) (unknown) (unknown) (no date) (unknown) (unknown) NEGATIVE g/dl (unknown) (unknown) (no date) (unknown) (unknown) YELLOW (units unknown) (unknown) (unknown) (no date) (unknown) (unknown) YELLOW (units unknown) (unknown) Result panel 124 (unknown) (no date) (unknown) (unknown) <=1.005 (units unknown) (unknown) (unknown) (no date) (unknown) (unknown) 0.2 e.u./dl (unknown) (unknown) (no date) (unknown) (unknown) 6.0 (units unknown) (unknown) (unknown) (no date) (unknown) (unknown) CLEAR (units unknown) (unknown) (unknown) (no date) (unknown) (unknown) Cult Not Indicated (units unknown) (unknown) (unknown) (no date) (unknown) (unknown) NEGATIVE (units unknown) (unknown) (unknown) (no date) (unknown) (unknown) NEGATIVE g/dl (unknown) (unknown) (no date) (unknown) (unknown) None Seen (units unknown) (unknown) (unknown) (no date) (unknown) (unknown) None Seen (units unknown) (unknown) (unknown) (no date) (unknown) (unknown) YELLOW (units unknown) (unknown) (unknown) (no date) (unknown) (unknown) YELLOW (units unknown) (unknown) Result panel 125 (unknown) (no date) (unknown) (unknown) (no value) (units unknown) (unknown) (unknown) (no date) (unknown) (unknown) (Calcium 500 + D) (units unknown) (unknown) (unknown) (no date) (unknown) (unknown) [id number] (units unknown) (unknown) (unknown) (no date) (unknown) (unknown) 08/09/22 08/09/22 08/09/22 Range/Units (units unknown) (unknown) (unknown) (no date) (unknown) (unknown) 08/09/22 12:02 (units unknown) (unknown) (unknown) (no date) (unknown) (unknown) 08/09/22 12:05 (units unknown) (unknown) (unknown) (no date) (unknown) (unknown) 08/09/22 12:07 (units unknown) (unknown) (unknown) (no date) (unknown) (unknown) 08/09/22 12:08 (units unknown) (unknown) (unknown) (no date) (unknown) (unknown) 08/09/22 12:30 (units unknown) (unknown) (unknown) (no date) (unknown) (unknown) 08/09/22 13:52 (units unknown) (unknown) (unknown) (no date) (unknown) (unknown) 08/09/22 (units unknown) (unknown) (unknown) (no date) (unknown) (unknown) 1 tab PO BID (units unknown) (unknown) (unknown) (no date) (unknown) (unknown) 1,000 mg PO BID (units unknown) (unknown) (unknown) (no date) (unknown) (unknown) 1,000 unit PO DAILY (units unknown) (unknown) (unknown) (no date) (unknown) (unknown) 1.5 mg PO SEEINSTR Qty: 0 (units unknown) (unknown) (unknown) (no date) (unknown) (unknown) 1.5 mmol/l (unknown) (unknown) (no date) (unknown) (unknown) 10 mg PO BEDTIME (units unknown) (unknown) (unknown) (no date) (unknown) (unknown) 10 mg PO QDAY Qty: 0 (units unknown) (unknown) (unknown) (no date) (unknown) (unknown) 100 mcg PO BID (units unknown) (unknown) (unknown) (no date) (unknown) (unknown) 11:55 08/09/22 (units unknown) (unknown) (unknown) (no date) (unknown) (unknown) 12:00 (units unknown) (unknown) (unknown) (no date) (unknown) (unknown) 12:05 12:05 12:05 (units unknown) (unknown) (unknown) (no date) (unknown) (unknown) 12:05 12:05 13:52 (units unknown) (unknown) (unknown) (no date) (unknown) (unknown) 12:30 08/09/22 (units unknown) (unknown) (unknown) (no date) (unknown) (unknown) 13:00 (units unknown) (unknown) (unknown) (no date) (unknown) (unknown) 13:30 08/09/22 (units unknown) (unknown) (unknown) (no date) (unknown) (unknown) 13:47 08/09/22 (units unknown) (unknown) (unknown) (no date) (unknown) (unknown) 13:47 (units unknown) (unknown) (unknown) (no date) (unknown) (unknown) 14:00 08/09/22 (units unknown) (unknown) (unknown) (no date) (unknown) (unknown) 14:00 (units unknown) (unknown) (unknown) (no date) (unknown) (unknown) 2 spray Intranasal BID Qty: 0 (units unknown) (unknown) (unknown) (no date) (unknown) (unknown) 2 tab PO DAILY (units unknown) (unknown) (unknown) (no date) (unknown) (unknown) 3 mg PO SEEINSTR (units unknown) (unknown) (unknown) (no date) (unknown) (unknown) 324 mg PO DAILY (units unknown) (unknown) (unknown) (no date) (unknown) (unknown) 500 mg PO BID (units unknown) (unknown) (unknown) (no date) (unknown) (unknown) 75 mg PO DAILY (units unknown) (unknown) (unknown) (no date) (unknown) (unknown) ABDOMEN: Soft, nontender. Normoactive bowel sounds all 4 quadrants. No (units unknown) (unknown) (unknown) (no date) (unknown) (unknown) ALT (<50) IU/L (units unknown) (unknown) (unknown) (no date) (unknown) (unknown) ALT 21 (<50) IU/L (units unknown) (unknown) (unknown) (no date) (unknown) (unknown) APTT (26-36) SECONDS (units unknown) (unknown) (unknown) (no date) (unknown) (unknown) APTT 40 H (26-36) SECONDS (units unknown) (unknown) (unknown) (no date) (unknown) (unknown) AST (17-59) IU/L (units unknown) (unknown) (unknown) (no date) (unknown) (unknown) AST 30 (17-59) IU/L (units unknown) (unknown) (unknown) (no date) (unknown) (unknown) Age/Sex: 86 / M (units unknown) (unknown) (unknown) (no date) (unknown) (unknown) Albumin (3.5-5.0) g/dL (units unknown) (unknown) (unknown) (no date) (unknown) (unknown) Albumin 5.0 (3.5-5.0) g/dL (units unknown) (unknown) (unknown) (no date) (unknown) (unknown) Albumin/Globulin Ratio (1.0-2.8) (units unknown) (unknown) (unknown) (no date) (unknown) (unknown) Albumin/Globulin Ratio 1.3 (1.0-2.8) (units unknown) (unknown) (unknown) (no date) (unknown) (unknown) Alkaline Phosphatase (38-126) U/L (units unknown) (unknown) (unknown) (no date) (unknown) (unknown) Alkaline Phosphatase 83 (38-126) U/L (units unknown) (unknown) (unknown) (no date) (unknown) (unknown) Allergies (units unknown) (unknown) (unknown) (no date) (unknown) (unknown) Allergy/AdvReac Type Severity Reaction Status Date / Time (units unknown) (unknown) (unknown) (no date) (unknown) (unknown) Atrial fibrillation rate 78 ST depression and T-wave inversion noted in lead 3 (units unknown) (unknown) (unknown) (no date) (unknown) (unknown) Atrial fibrillation (units unknown) (unknown) (unknown) (no date) (unknown) (unknown) BUN (9-20) mg/dL (units unknown) (unknown) (unknown) (no date) (unknown) (unknown) BUN 29 H (9-20) mg/dL (units unknown) (unknown) (unknown) (no date) (unknown) (unknown) BUN/Creatinine Ratio (6-22) (units unknown) (unknown) (unknown) (no date) (unknown) (unknown) BUN/Creatinine Ratio 23.6 H (6-22) (units unknown) (unknown) (unknown) (no date) (unknown) (unknown) Baso # (Auto) (0-100) /uL (units unknown) (unknown) (unknown) (no date) (unknown) (unknown) Baso # (Auto) 100 (0-100) /uL (units unknown) (unknown) (unknown) (no date) (unknown) (unknown) Baso % (Auto) (0-2) % (units unknown) (unknown) (unknown) (no date) (unknown) (unknown) Baso % (Auto) 0.9 (0-2) % (units unknown) (unknown) (unknown) (no date) (unknown) (unknown) Blood Culture Stat (units unknown) (unknown) (unknown) (no date) (unknown) (unknown) Blood Pressure 113/71 (units unknown) (unknown) (unknown) (no date) (unknown) (unknown) Blood Pressure 121/68 (units unknown) (unknown) (unknown) (no date) (unknown) (unknown) Blood Pressure 123/67 (units unknown) (unknown) (unknown) (no date) (unknown) (unknown) Blood Pressure 139/74 08/09/22 11:55 (units unknown) (unknown) (unknown) (no date) (unknown) (unknown) Blood Pressure 139/74 (units unknown) (unknown) (unknown) (no date) (unknown) (unknown) CARDIOVASCULAR: Regular rate and rhythm without murmurs, rubs or gallops. (units unknown) (unknown) (unknown) (no date) (unknown) (unknown) CK-MB (CK-2) (<2.37) ng/mL (units unknown) (unknown) (unknown) (no date) (unknown) (unknown) CK-MB (CK-2) 1.33 (<2.37) ng/mL (units unknown) (unknown) (unknown) (no date) (unknown) (unknown) CK-MB (CK-2) Rel Index (1.5-5.0) % (units unknown) (unknown) (unknown) (no date) (unknown) (unknown) CK-MB (CK-2) Rel Index 1.2 L (1.5-5.0) % (units unknown) (unknown) (unknown) (no date) (unknown) (unknown) CT angio head and neck Stat (units unknown) (unknown) (unknown) (no date) (unknown) (unknown) Calcium (8.4-10.2) mg/dL (units unknown) (unknown) (unknown) (no date) (unknown) (unknown) Calcium 9.9 (8.4-10.2) mg/dL (units unknown) (unknown) (unknown) (no date) (unknown) (unknown) Carbon Dioxide (22-32) mmol/L (units unknown) (unknown) (unknown) (no date) (unknown) (unknown) Carbon Dioxide 27 (22-32) mmol/L (units unknown) (unknown) (unknown) (no date) (unknown) (unknown) Chief Complaint: Neuro Symptoms/Deficit (units unknown) (unknown) (unknown) (no date) (unknown) (unknown) Chloride (98-107) mmol/L (units unknown) (unknown) (unknown) (no date) (unknown) (unknown) Chloride 99 (98-107) mmol/L (units unknown) (unknown) (unknown) (no date) (unknown) (unknown) Complete Blood Count AUTO DIFF Stat (units unknown) (unknown) (unknown) (no date) (unknown) (unknown) Comprehensive Metabolic Panel Stat (units unknown) (unknown) (unknown) (no date) (unknown) (unknown) Course (units unknown) (unknown) (unknown) (no date) (unknown) (unknown) Creatinine (0.66-1.25) mg/dL (units unknown) (unknown) (unknown) (no date) (unknown) (unknown) Creatinine 1.23 (0.66-1.25) mg/dL (units unknown) (unknown) (unknown) (no date) (unknown) (unknown) D3 10 mcg (400 unit) tablet (units unknown) (unknown) (unknown) (no date) (unknown) (unknown) D3) (units unknown) (unknown) (unknown) (no date) (unknown) (unknown) : 1935 Acct:[id number] (units unknown) (unknown) (unknown) (no date) (unknown) (unknown) Date of Service: 08/09/22 (units unknown) (unknown) (unknown) (no date) (unknown) (unknown) Departure (units unknown) (unknown) (unknown) (no date) (unknown) (unknown) Discharge Plan (units unknown) (unknown) (unknown) (no date) (unknown) (unknown) Documented By: SPF (units unknown) (unknown) (unknown) (no date) (unknown) (unknown) ECG Data (units unknown) (unknown) (unknown) (no date) (unknown) (unknown) ED Orders (units unknown) (unknown) (unknown) (no date) (unknown) (unknown) EKG-12 Lead Stat (units unknown) (unknown) (unknown) (no date) (unknown) (unknown) ER Physician: Eulalia Hilliard D.O. (units unknown) (unknown) (unknown) (no date) (unknown) (unknown) EXTREMITIES: Normal range of motion, no clubbing or edema. Neurovascularly (units unknown) (unknown) (unknown) (no date) (unknown) (unknown) Emergency Report (units unknown) (unknown) (unknown) (no date) (unknown) (unknown) Eos # (Auto) (0-450) /uL (units unknown) (unknown) (unknown) (no date) (unknown) (unknown) Eos # (Auto) 400 (0-450) /uL (units unknown) (unknown) (unknown) (no date) (unknown) (unknown) Eos % (Auto) (2-4) % (units unknown) (unknown) (unknown) (no date) (unknown) (unknown) Eos % (Auto) 6.5 H (2-4) % (units unknown) (unknown) (unknown) (no date) (unknown) (unknown) Estimated GFR (>60) mL/min (units unknown) (unknown) (unknown) (no date) (unknown) (unknown) Estimated GFR 57 L (>60) mL/min (units unknown) (unknown) (unknown) (no date) (unknown) (unknown) Exam (units unknown) (unknown) (unknown) (no date) (unknown) (unknown) GENERAL: Alert pleasantly confused 86-year-old male and in no acute distress. (units unknown) (unknown) (unknown) (no date) (unknown) (unknown) General (units unknown) (unknown) (unknown) (no date) (unknown) (unknown) Globulin (1.7-4.1) g/dL (units unknown) (unknown) (unknown) (no date) (unknown) (unknown) Globulin 4.0 (1.7-4.1) g/dL (units unknown) (unknown) (unknown) (no date) (unknown) (unknown) Glucose (80-110) mg/dL (units unknown) (unknown) (unknown) (no date) (unknown) (unknown) Glucose 145 H (80-110) mg/dL (units unknown) (unknown) (unknown) (no date) (unknown) (unknown) HEENT: Head atraumatic,EOMI, pupils reactive, face symmetric, moist mucous (units unknown) (unknown) (unknown) (no date) (unknown) (unknown) HPI - Neuro Symptoms/Deficit (units unknown) (unknown) (unknown) (no date) (unknown) (unknown) HPI Narrative: (units unknown) (unknown) (unknown) (no date) (unknown) (unknown) Hct (41-53) % (units unknown) (unknown) (unknown) (no date) (unknown) (unknown) Hct 38.7 L (41-53) % (units unknown) (unknown) (unknown) (no date) (unknown) (unknown) He is able to follow commands but is confused. No abdominal pain no nausea or (units unknown) (unknown) (unknown) (no date) (unknown) (unknown) Hematologic/Lymphat ic (units unknown) (unknown) (unknown) (no date) (unknown) (unknown) Hgb (13.5-17.5) g/dL (units unknown) (unknown) (unknown) (no date) (unknown) (unknown) Hgb 13.0 L (13.5-17.5) g/dL (units unknown) (unknown) (unknown) (no date) (unknown) (unknown) History of Present Illness (units unknown) (unknown) (unknown) (no date) (unknown) (unknown) Home Medications (units unknown) (unknown) (unknown) (no date) (unknown) (unknown) Hyperglycemia (units unknown) (unknown) (unknown) (no date) (unknown) (unknown) Hypertension (units unknown) (unknown) (unknown) (no date) (unknown) (unknown) INR (0.9-1.3) (units unknown) (unknown) (unknown) (no date) (unknown) (unknown) INR 1.8 H (0.9-1.3) (units unknown) (unknown) (unknown) (no date) (unknown) (unknown) Initial Vital Signs (units unknown) (unknown) (unknown) (no date) (unknown) (unknown) Initial Vital Signs: (units unknown) (unknown) (unknown) (no date) (unknown) (unknown) Interpretation: (units unknown) (unknown) (unknown) (no date) (unknown) (unknown) [address] [address] (units unknown) (unknown) (unknown) (no date) (unknown) (unknown) Lab Data (units unknown) (unknown) (unknown) (no date) (unknown) (unknown) Lab Results (units unknown) (unknown) (unknown) (no date) (unknown) (unknown) Labs: (units unknown) (unknown) (unknown) (no date) (unknown) (unknown) Lactate (0.7-2.1) mmol/L (units unknown) (unknown) (unknown) (no date) (unknown) (unknown) Lactate (Lactic Acid) Stat (units unknown) (unknown) (unknown) (no date) (unknown) (unknown) Lactate 2.6 H (0.7-2.1) mmol/L (units unknown) (unknown) (unknown) (no date) (unknown) (unknown) Last Admin: 08/09/22 13:43 Dose: 150 mls/hr (units unknown) (unknown) (unknown) (no date) (unknown) (unknown) Lipase (23-300) U/L (units unknown) (unknown) (unknown) (no date) (unknown) (unknown) Lipase 379 H (23-300) U/L (units unknown) (unknown) (unknown) (no date) (unknown) (unknown) Lipase Stat (units unknown) (unknown) (unknown) (no date) (unknown) (unknown) Lymph # (Auto) (5851-1552) /uL (units unknown) (unknown) (unknown) (no date) (unknown) (unknown) Lymph # (Auto) 1000 L (8453-1210) /uL (units unknown) (unknown) (unknown) (no date) (unknown) (unknown) Lymph % (Auto) (25-40) % (units unknown) (unknown) (unknown) (no date) (unknown) (unknown) Lymph % (Auto) 17.8 L (25-40) % (units unknown) (unknown) (unknown) (no date) (unknown) (unknown) MCH (26-34) PG (units unknown) (unknown) (unknown) (no date) (unknown) (unknown) MCH 32.7 (26-34) PG (units unknown) (unknown) (unknown) (no date) (unknown) (unknown) MCHC (30-36) % (units unknown) (unknown) (unknown) (no date) (unknown) (unknown) MCHC 33.7 (30-36) % (units unknown) (unknown) (unknown) (no date) (unknown) (unknown) MCV (80-100) fL (units unknown) (unknown) (unknown) (no date) (unknown) (unknown) MCV 97.0 (80-100) fL (units unknown) (unknown) (unknown) (no date) (unknown) (unknown) MDM - Neuro Symptoms/Deficit (units unknown) (unknown) (unknown) (no date) (unknown) (unknown) Medical History (units unknown) (unknown) (unknown) (no date) (unknown) (unknown) Medication Instructions Recorded Confirmed (units unknown) (unknown) (unknown) (no date) (unknown) (unknown) Migraines (units unknown) (unknown) (unknown) (no date) (unknown) (unknown) Mode of arrival: Ambulatory (units unknown) (unknown) (unknown) (no date) (unknown) (unknown) [place] # (Auto) (0-900) /uL (units unknown) (unknown) (unknown) (no date) (unknown) (unknown) [place] # (Auto) 500 (0-900) /uL (units unknown) (unknown) (unknown) (no date) (unknown) (unknown) [place] % (Auto) (3-14) % (units unknown) (unknown) (unknown) (no date) (unknown) (unknown) [place] % (Auto) 9.1 (3-14) % (units unknown) (unknown) (unknown) (no date) (unknown) (unknown) Move [facility] 750 mg-100 mg- 1.65 mg-108 mg Tablet (units unknown) (unknown) (unknown) (no date) (unknown) (unknown) NEUROLOGICAL: Alert and oriented x1.Normal gait and speech. Cranial nerves II (units unknown) (unknown) (unknown) (no date) (unknown) (unknown) Neut # (Auto) (2599-1337) /uL (units unknown) (unknown) (unknown) (no date) (unknown) (unknown) Neut # (Auto) 3800 (9610-5483) /uL (units unknown) (unknown) (unknown) (no date) (unknown) (unknown) Neut % (Auto) (50-75) % (units unknown) (unknown) (unknown) (no date) (unknown) (unknown) Neut % (Auto) 65.7 (50-75) % (units unknown) (unknown) (unknown) (no date) (unknown) (unknown) No Action (units unknown) (unknown) (unknown) (no date) (unknown) (unknown) On Anticoagulants: Yes (units unknown) (unknown) (unknown) (no date) (unknown) (unknown) Ordered: (units unknown) (unknown) (unknown) (no date) (unknown) (unknown) Orders (units unknown) (unknown) (unknown) (no date) (unknown) (unknown) Oxygen Delivery Method Room Air 08/09/22 11:55 (units unknown) (unknown) (unknown) (no date) (unknown) (unknown) Oxygen Delivery Method Room Air (units unknown) (unknown) (unknown) (no date) (unknown) (unknown) Oxygen Delivery Method (units unknown) (unknown) (unknown) (no date) (unknown) (unknown) PT (10.1-12.7) SECONDS (units unknown) (unknown) (unknown) (no date) (unknown) (unknown) PT 21.0 H (10.1-12.7) SECONDS (units unknown) (unknown) (unknown) (no date) (unknown) (unknown) PTT Partial Thromboplastin [place] Stat (units unknown) (unknown) (unknown) (no date) (unknown) (unknown) Pacemaker (units unknown) (unknown) (unknown) (no date) (unknown) (unknown) Patient 86-year-old male history of atrial fibrillation on warfarin, presents (units unknown) (unknown) (unknown) (no date) (unknown) (unknown) Patient Comments: (units unknown) (unknown) (unknown) (no date) (unknown) (unknown) Patient History (units unknown) (unknown) (unknown) (no date) (unknown) (unknown) Patient: Mando Gomez MR#: [id number] (units unknown) (unknown) (unknown) (no date) (unknown) (unknown) Plt Count (150-400) X103/uL (units unknown) (unknown) (unknown) (no date) (unknown) (unknown) Plt Count 169 (150-400) X103/uL (units unknown) (unknown) (unknown) (no date) (unknown) (unknown) Potassium (3.4-5.1) mmol/L (units unknown) (unknown) (unknown) (no date) (unknown) (unknown) Potassium 4.7 (3.4-5.1) mmol/L (units unknown) (unknown) (unknown) (no date) (unknown) (unknown) Prescriptions: (units unknown) (unknown) (unknown) (no date) (unknown) (unknown) Procalcitonin (<0.5) ng/mL (units unknown) (unknown) (unknown) (no date) (unknown) (unknown) Procalcitonin 0.04 (<0.5) ng/mL (units unknown) (unknown) (unknown) (no date) (unknown) (unknown) Procalcitonin Stat (units unknown) (unknown) (unknown) (no date) (unknown) (unknown) Prothrombin Time INR Stat (units unknown) (unknown) (unknown) (no date) (unknown) (unknown) Pulse Oximetry 100 100 (units unknown) (unknown) (unknown) (no date) (unknown) (unknown) Pulse Oximetry 100 (units unknown) (unknown) (unknown) (no date) (unknown) (unknown) Pulse Oximetry 98 08/09/22 11:55 (units unknown) (unknown) (unknown) (no date) (unknown) (unknown) Pulse Oximetry 98 100 (units unknown) (unknown) (unknown) (no date) (unknown) (unknown) Pulse Oximetry 98 99 99 (units unknown) (unknown) (unknown) (no date) (unknown) (unknown) Pulse Rate 69 64 (units unknown) (unknown) (unknown) (no date) (unknown) (unknown) Pulse Rate 70 (units unknown) (unknown) (unknown) (no date) (unknown) (unknown) Pulse Rate 72 68 (units unknown) (unknown) (unknown) (no date) (unknown) (unknown) Pulse Rate 80 08/09/22 11:55 (units unknown) (unknown) (unknown) (no date) (unknown) (unknown) Pulse Rate 80 78 82 (units unknown) (unknown) (unknown) (no date) (unknown) (unknown) RBC (4.5-5.9) X106/uL (units unknown) (unknown) (unknown) (no date) (unknown) (unknown) RBC 3.98 L (4.5-5.9) X106/uL (units unknown) (unknown) (unknown) (no date) (unknown) (unknown) RDW (11.6-14.8) % (units unknown) (unknown) (unknown) (no date) (unknown) (unknown) RDW 14.4 (11.6-14.8) % (units unknown) (unknown) (unknown) (no date) (unknown) (unknown) RESPIRATORY: Breath sounds equal bilaterally, no wheezes rales or rhonchi. (units unknown) (unknown) (unknown) (no date) (unknown) (unknown) ROS Unobtainable: All systems reviewed + are unremarkable except as noted in HPI (units unknown) (unknown) (unknown) (no date) (unknown) (unknown) Referrals: (units unknown) (unknown) (unknown) (no date) (unknown) (unknown) Related Data (units unknown) (unknown) (unknown) (no date) (unknown) (unknown) Relief) (units unknown) (unknown) (unknown) (no date) (unknown) (unknown) Respiratory Rate 15 (units unknown) (unknown) (unknown) (no date) (unknown) (unknown) Respiratory Rate 16 08/09/22 11:55 (units unknown) (unknown) (unknown) (no date) (unknown) (unknown) Respiratory Rate 16 18 18 (units unknown) (unknown) (unknown) (no date) (unknown) (unknown) Respiratory Rate 17 15 (units unknown) (unknown) (unknown) (no date) (unknown) (unknown) Respiratory Rate 23 16 (units unknown) (unknown) (unknown) (no date) (unknown) (unknown) Review of Systems (units unknown) (unknown) (unknown) (no date) (unknown) (unknown) Rx Instructions: (units unknown) (unknown) (unknown) (no date) (unknown) (unknown) SKIN: Warm, dry, no laceration, no petechiae, no rashes or lesions. (units unknown) (unknown) (unknown) (no date) (unknown) (unknown) SWELLING (units unknown) (unknown) (unknown) (no date) (unknown) (unknown) Signed By: (units unknown) (unknown) (unknown) (no date) (unknown) (unknown) Smoking Status: Never smoker (units unknown) (unknown) (unknown) (no date) (unknown) (unknown) Social History (units unknown) (unknown) (unknown) (no date) (unknown) (unknown) Sodium (137-145) mmol/L (units unknown) (unknown) (unknown) (no date) (unknown) (unknown) Sodium 137 (137-145) mmol/L (units unknown) (unknown) (unknown) (no date) (unknown) (unknown) Sodium Chloride (Normal Saline 0.9%) 1,000 mls @ 150 mls/hr IV CONT PREET (units unknown) (unknown) (unknown) (no date) (unknown) (unknown) Source: family (units unknown) (unknown) (unknown) (no date) (unknown) (unknown) Stated Complaint: sent by DR naik he had a stroke (units unknown) (unknown) (unknown) (no date) (unknown) (unknown) Substance Use Type: does not use (units unknown) (unknown) (unknown) (no date) (unknown) (unknown) Clari Pacheco MD [Primary Care Provider] (units unknown) (unknown) (unknown) (no date) (unknown) (unknown) Tablet (units unknown) (unknown) (unknown) (no date) (unknown) (unknown) Takes 1.5 mg on Tuesdays and Saturdays (units unknown) (unknown) (unknown) (no date) (unknown) (unknown) Takes 3 mg on Saturday, Saturday, , Saturday and Saturday (units unknown) (unknown) (unknown) (no date) (unknown) (unknown) Temperature 97.6 F 08/09/22 11:55 (units unknown) (unknown) (unknown) (no date) (unknown) (unknown) Temperature 97.6 F (units unknown) (unknown) (unknown) (no date) (unknown) (unknown) Temperature (units unknown) (unknown) (unknown) (no date) (unknown) (unknown) Time Seen by Provider: 08/09/22 12:07 (units unknown) (unknown) (unknown) (no date) (unknown) (unknown) Total Bilirubin (0.2-1.3) mg/dL (units unknown) (unknown) (unknown) (no date) (unknown) (unknown) Total Bilirubin 1.0 (0.2-1.3) mg/dL (units unknown) (unknown) (unknown) (no date) (unknown) (unknown) Total Creatine Kinase (55-170) U/L (units unknown) (unknown) (unknown) (no date) (unknown) (unknown) Total Creatine Kinase 112 (55-170) U/L (units unknown) (unknown) (unknown) (no date) (unknown) (unknown) Total Protein (6.3-8.2) g/dL (units unknown) (unknown) (unknown) (no date) (unknown) (unknown) Total Protein 9.0 H (6.3-8.2) g/dL (units unknown) (unknown) (unknown) (no date) (unknown) (unknown) Troponin + CK Cardiac Panel Stat (units unknown) (unknown) (unknown) (no date) (unknown) (unknown) Troponin I < 0.012 (0.01-0.034) ng/mL (units unknown) (unknown) (unknown) (no date) (unknown) (unknown) Troponin I (0.01-0.034) ng/mL (units unknown) (unknown) (unknown) (no date) (unknown) (unknown) Ur Culture Indicated? Cult not indicated (units unknown) (unknown) (unknown) (no date) (unknown) (unknown) Ur Culture Indicated? (units unknown) (unknown) (unknown) (no date) (unknown) (unknown) Ur Leukocyte Esterase (NEGATIVE) (units unknown) (unknown) (unknown) (no date) (unknown) (unknown) Ur Leukocyte Esterase Negative (NEGATIVE) (units unknown) (unknown) (unknown) (no date) (unknown) (unknown) Ur Specific [place] <=1.005 (1.000-1.035) (units unknown) (unknown) (unknown) (no date) (unknown) (unknown) Ur Specific [place] (1.000-1.035) (units unknown) (unknown) (unknown) (no date) (unknown) (unknown) Urinalysis and Microscopic Stat (units unknown) (unknown) (unknown) (no date) (unknown) (unknown) Urine Appearance Clear (units unknown) (unknown) (unknown) (no date) (unknown) (unknown) Urine Appearance (units unknown) (unknown) (unknown) (no date) (unknown) (unknown) Urine Bacteria (None) (units unknown) (unknown) (unknown) (no date) (unknown) (unknown) Urine Bacteria None seen (None) (units unknown) (unknown) (unknown) (no date) (unknown) (unknown) Urine Bilirubin (NEGATIVE) (units unknown) (unknown) (unknown) (no date) (unknown) (unknown) Urine Bilirubin Negative (NEGATIVE) (units unknown) (unknown) (unknown) (no date) (unknown) (unknown) Urine Color Yellow (units unknown) (unknown) (unknown) (no date) (unknown) (unknown) Urine Color (units unknown) (unknown) (unknown) (no date) (unknown) (unknown) Urine Glucose (UA) (Negative) g/dL (units unknown) (unknown) (unknown) (no date) (unknown) (unknown) Urine Glucose (UA) Negative (Negative) g/dL (units unknown) (unknown) (unknown) (no date) (unknown) (unknown) Urine Ketones (NEGATIVE) (units unknown) (unknown) (unknown) (no date) (unknown) (unknown) Urine Ketones Negative (NEGATIVE) (units unknown) (unknown) (unknown) (no date) (unknown) (unknown) Urine Nitrate (Negative) (units unknown) (unknown) (unknown) (no date) (unknown) (unknown) Urine Nitrate Negative (Negative) (units unknown) (unknown) (unknown) (no date) (unknown) (unknown) Urine Occult Blood (Negative) (units unknown) (unknown) (unknown) (no date) (unknown) (unknown) Urine Occult Blood Negative (Negative) (units unknown) (unknown) (unknown) (no date) (unknown) (unknown) Urine Protein (Negative) (units unknown) (unknown) (unknown) (no date) (unknown) (unknown) Urine Protein Negative (Negative) (units unknown) (unknown) (unknown) (no date) (unknown) (unknown) Urine RBC (0-5/HPF) (units unknown) (unknown) (unknown) (no date) (unknown) (unknown) Urine RBC None seen (0-5/HPF) (units unknown) (unknown) (unknown) (no date) (unknown) (unknown) Urine Urobilinogen (0.2) E.U./dL (units unknown) (unknown) (unknown) (no date) (unknown) (unknown) Urine Urobilinogen 0.2 (0.2) E.U./dL (units unknown) (unknown) (unknown) (no date) (unknown) (unknown) Urine WBC (0-5/HPF) (units unknown) (unknown) (unknown) (no date) (unknown) (unknown) Urine WBC None seen (0-5/HPF) (units unknown) (unknown) (unknown) (no date) (unknown) (unknown) Urine pH (4.5-8.0) (units unknown) (unknown) (unknown) (no date) (unknown) (unknown) Urine pH 6.0 (4.5-8.0) (units unknown) (unknown) (unknown) (no date) (unknown) (unknown) Vital Signs - 8 hr (units unknown) (unknown) (unknown) (no date) (unknown) (unknown) Vital Signs (units unknown) (unknown) (unknown) (no date) (unknown) (unknown) Vital signs: (units unknown) (unknown) (unknown) (no date) (unknown) (unknown) WBC (4.5-11.0) X103/uL (units unknown) (unknown) (unknown) (no date) (unknown) (unknown) WBC 5.8 (4.5-11.0) X103/uL (units unknown) (unknown) (unknown) (no date) (unknown) (unknown) XR chest 1V Stat (units unknown) (unknown) (unknown) (no date) (unknown) (unknown) [Embedded Image Not Available] (units unknown) (unknown) (unknown) (no date) (unknown) (unknown) alcohol intake frequency: 0-2 drinks per day (units unknown) (unknown) (unknown) (no date) (unknown) (unknown) alfuzosin 10 mg tablet,extended 10 mg PO QDAY ##0 02/28/17 05/09/19 (units unknown) (unknown) (unknown) (no date) (unknown) (unknown) alfuzosin [Uroxatral] 10 MG tablet extended release 24 hr (units unknown) (unknown) (unknown) (no date) (unknown) (unknown) amiodarone [AMIODARONE] Allergy Severe FACIAL Verified 05/08/19 17:47 (units unknown) (unknown) (unknown) (no date) (unknown) (unknown) and below (units unknown) (unknown) (unknown) (no date) (unknown) (unknown) atorvastatin 10 mg Tablet (units unknown) (unknown) (unknown) (no date) (unknown) (unknown) atorvastatin 10 mg tablet 10 mg PO BEDTIME 05/09/19 05/09/19 (units unknown) (unknown) (unknown) (no date) (unknown) (unknown) bilaterally, no visual changes, no facial droop (units unknown) (unknown) (unknown) (no date) (unknown) (unknown) calcium carbonate 500 mg-vitamin 1 tab PO BID 05/09/19 05/09/19 (units unknown) (unknown) (unknown) (no date) (unknown) (unknown) calcium carbonate-vitamin D3 [Calcium 500 + D] 500 mg(1,250mg) -400 unit (units unknown) (unknown) (unknown) (no date) (unknown) (unknown) cholecalciferol (vitamin D3) 25 1,000 unit PO DAILY 05/09/19 05/09/19 (units unknown) (unknown) (unknown) (no date) (unknown) (unknown) cholecalciferol (vitamin D3) [Vitamin D3] 1,000 unit Capsule (units unknown) (unknown) (unknown) (no date) (unknown) (unknown) codeine [CODEINE] AdvReac Intermediate N/V Verified 05/08/19 17:47 (units unknown) (unknown) (unknown) (no date) (unknown) (unknown) confusion however last night it got significantly worse seems to remain the same (units unknown) (unknown) (unknown) (no date) (unknown) (unknown) cyanocobalamin (vitamin B-12) 100 100 mcg PO BID 05/09/19 05/09/19 (units unknown) (unknown) (unknown) (no date) (unknown) (unknown) cyanocobalamin (vitamin B-12) [Vitamin B-12] 100 mcg Tablet (units unknown) (unknown) (unknown) (no date) (unknown) (unknown) equal bilaterally, no dysarthria or aphasia, sensation in tact to soft touch (units unknown) (unknown) (unknown) (no date) (unknown) (unknown) ferrous sulfate 324 mg (65 mg 324 mg PO DAILY 05/09/19 05/09/19 (units unknown) (unknown) (unknown) (no date) (unknown) (unknown) ferrous sulfate 324 mg (65 mg iron) Tablet,Delayed Release (Dr/Ec) (units unknown) (unknown) (unknown) (no date) (unknown) (unknown) fluticasone propionate 50 2 spray intranasal BID ##0 06/14/11 05/09/19 (units unknown) (unknown) (unknown) (no date) (unknown) (unknown) fluticasone propionate [Flonase Allergy Relief] 9.9 ML spray,suspension (units unknown) (unknown) (unknown) (no date) (unknown) (unknown) glucosam 750 mg-chondroi 100 2 tab PO DAILY 05/09/19 05/09/19 (units unknown) (unknown) (unknown) (no date) (unknown) (unknown) guarding or rebound. (units unknown) (unknown) (unknown) (no date) (unknown) (unknown) household members: spouse (units unknown) (unknown) (unknown) (no date) (unknown) (unknown) hydromorphone [HYDROMORPHONE] AdvReac Intermediate N/V Verified 05/08/19 17:47 (units unknown) (unknown) (unknown) (no date) (unknown) (unknown) intact (units unknown) (unknown) (unknown) (no date) (unknown) (unknown) iron) tablet,delayed release (units unknown) (unknown) (unknown) (no date) (unknown) (unknown) latex [LATEX] AdvReac Mild RASH Verified 05/08/19 17:47 (units unknown) (unknown) (unknown) (no date) (unknown) (unknown) magnesium citrate 100 mg Tablet (units unknown) (unknown) (unknown) (no date) (unknown) (unknown) magnesium citrate 100 mg tablet 500 mg PO BID 05/09/19 05/09/19 (units unknown) (unknown) (unknown) (no date) (unknown) (unknown) mcg (1,000 unit) capsule (Vitamin (units unknown) (unknown) (unknown) (no date) (unknown) (unknown) mcg tablet (Vitamin B-12) (units unknown) (unknown) (unknown) (no date) (unknown) (unknown) mcg/actuation nasal (units unknown) (unknown) (unknown) (no date) (unknown) (unknown) membranes (units unknown) (unknown) (unknown) (no date) (unknown) (unknown) metformin 1,000 mg Tablet (units unknown) (unknown) (unknown) (no date) (unknown) (unknown) metformin 1,000 mg tablet 1,000 mg PO BID 05/09/19 05/09/19 (units unknown) (unknown) (unknown) (no date) (unknown) (unknown) metoprolol succinate 25 mg 75 mg PO DAILY 05/09/19 05/09/19 (units unknown) (unknown) (unknown) (no date) (unknown) (unknown) metoprolol succinate 25 mg Tablet Extended Release 24 Hr (units unknown) (unknown) (unknown) (no date) (unknown) (unknown) mg-hyalur 1.65 mg-CF borate 108 mg (units unknown) (unknown) (unknown) (no date) (unknown) (unknown) no ST elevations previous EKG showed a paced rhythm. That was 2017 reports (units unknown) (unknown) (unknown) (no date) (unknown) (unknown) oxycodone [OXYCODONE] AdvReac Intermediate N/V Verified 05/08/19 17:47 (units unknown) (unknown) (unknown) (no date) (unknown) (unknown) release 24 hr (Uroxatral) (units unknown) (unknown) (unknown) (no date) (unknown) (unknown) spray,suspension (Flonase Allergy (units unknown) (unknown) (unknown) (no date) (unknown) (unknown) tablet ([employer] [facility]) (units unknown) (unknown) (unknown) (no date) (unknown) (unknown) tablet,extended release 24 hr (units unknown) (unknown) (unknown) (no date) (unknown) (unknown) that he 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 (units unknown) (unknown) (unknown) (no date) (unknown) (unknown) through XII grossly intact. Good plwccv-dv-xntv, good iuvz-fm-xvlq, strength (units unknown) (unknown) (unknown) (no date) (unknown) (unknown) today with confusion that started last night. states that he may have some (units unknown) (unknown) (unknown) (no date) (unknown) (unknown) today. No fever chills he does not of any chest pain or shortness of breath. (units unknown) (unknown) (unknown) (no date) (unknown) (unknown) vomiting. He apparently was sent here by his PCP for rule out of stroke (units unknown) (unknown) (unknown) (no date) (unknown) (unknown) warfarin 1 MG tablet (units unknown) (unknown) (unknown) (no date) (unknown) (unknown) warfarin 1 mg tablet 1.5 mg PO SEEINSTR ##0 06/05/11 05/09/19 (units unknown) (unknown) (unknown) (no date) (unknown) (unknown) warfarin 3 mg Tablet (units unknown) (unknown) (unknown) (no date) (unknown) (unknown) warfarin 3 mg tablet 3 mg PO SEEINSTR 05/09/19 05/09/19 (units unknown) (unknown) Result panel 126 (unknown) (no date) (unknown) (unknown) (no value) (units unknown) (unknown) (unknown) (no date) (unknown) (unknown) (Calcium 500 + D) (units unknown) (unknown) (unknown) (no date) (unknown) (unknown) *Continue to take medications as directed (units unknown) (unknown) (unknown) (no date) (unknown) (unknown) *Follow up with your primary care provider in 2-3 days or call [phone] (units unknown) (unknown) (unknown) (no date) (unknown) (unknown) *Return to ER if you should have increased confusion weakness numbness tingling (units unknown) (unknown) (unknown) (no date) (unknown) (unknown) *What to do: This time I do not find any evidence of infection. CT was (units unknown) (unknown) (unknown) (no date) (unknown) (unknown) *You have been diagnosed with dementia (units unknown) (unknown) (unknown) (no date) (unknown) (unknown) [id number] (units unknown) (unknown) (unknown) (no date) (unknown) (unknown) 08/09/22 08/09/22 08/09/22 Range/Units (units unknown) (unknown) (unknown) (no date) (unknown) (unknown) 08/09/22 12:02 (units unknown) (unknown) (unknown) (no date) (unknown) (unknown) 08/09/22 12:05 (units unknown) (unknown) (unknown) (no date) (unknown) (unknown) 08/09/22 12:07 (units unknown) (unknown) (unknown) (no date) (unknown) (unknown) 08/09/22 12:08 (units unknown) (unknown) (unknown) (no date) (unknown) (unknown) 08/09/22 12:30 (units unknown) (unknown) (unknown) (no date) (unknown) (unknown) 08/09/22 13:52 (units unknown) (unknown) (unknown) (no date) (unknown) (unknown) 08/09/22 (units unknown) (unknown) (unknown) (no date) (unknown) (unknown) 1 tab PO BID (units unknown) (unknown) (unknown) (no date) (unknown) (unknown) 1,000 mg PO BID (units unknown) (unknown) (unknown) (no date) (unknown) (unknown) 1,000 unit PO DAILY (units unknown) (unknown) (unknown) (no date) (unknown) (unknown) 1.5 mg PO SEEINSTR Qty: 0 (units unknown) (unknown) (unknown) (no date) (unknown) (unknown) 10 mg PO BEDTIME (units unknown) (unknown) (unknown) (no date) (unknown) (unknown) 10 mg PO QDAY Qty: 0 (units unknown) (unknown) (unknown) (no date) (unknown) (unknown) 02/28/2017, 12:04. (units unknown) (unknown) (unknown) (no date) (unknown) (unknown) 100 mcg PO BID (units unknown) (unknown) (unknown) (no date) (unknown) (unknown) 11:55 08/09/22 (units unknown) (unknown) (unknown) (no date) (unknown) (unknown) 12:00 (units unknown) (unknown) (unknown) (no date) (unknown) (unknown) 12:05 12:05 12:05 (units unknown) (unknown) (unknown) (no date) (unknown) (unknown) 12:05 12:05 13:52 (units unknown) (unknown) (unknown) (no date) (unknown) (unknown) 12:30 08/09/22 (units unknown) (unknown) (unknown) (no date) (unknown) (unknown) 13:00 (units unknown) (unknown) (unknown) (no date) (unknown) (unknown) 13:30 08/09/22 (units unknown) (unknown) (unknown) (no date) (unknown) (unknown) 13:47 08/09/22 (units unknown) (unknown) (unknown) (no date) (unknown) (unknown) 13:47 (units unknown) (unknown) (unknown) (no date) (unknown) (unknown) 14:00 08/09/22 (units unknown) (unknown) (unknown) (no date) (unknown) (unknown) 14:00 (units unknown) (unknown) (unknown) (no date) (unknown) (unknown) 2 spray Intranasal BID Qty: 0 (units unknown) (unknown) (unknown) (no date) (unknown) (unknown) 2 tab PO DAILY (units unknown) (unknown) (unknown) (no date) (unknown) (unknown) 3 mg PO SEEINSTR (units unknown) (unknown) (unknown) (no date) (unknown) (unknown) 07/26/2018, 17:34. (units unknown) (unknown) (unknown) (no date) (unknown) (unknown) 324 mg PO DAILY (units unknown) (unknown) (unknown) (no date) (unknown) (unknown) 500 mg PO BID (units unknown) (unknown) (unknown) (no date) (unknown) (unknown) 75 mg PO DAILY (units unknown) (unknown) (unknown) (no date) (unknown) (unknown) ? (units unknown) (unknown) (unknown) (no date) (unknown) (unknown) A1 (units unknown) (unknown) (unknown) (no date) (unknown) (unknown) ABDOMEN: Soft, nontender. Normoactive bowel sounds all 4 quadrants. No (units unknown) (unknown) (unknown) (no date) (unknown) (unknown) ALT (<50) IU/L (units unknown) (unknown) (unknown) (no date) (unknown) (unknown) ALT 21 (<50) IU/L (units unknown) (unknown) (unknown) (no date) (unknown) (unknown) APTT (26-36) SECONDS (units unknown) (unknown) (unknown) (no date) (unknown) (unknown) APTT 40 H (26-36) SECONDS (units unknown) (unknown) (unknown) (no date) (unknown) (unknown) AST (17-59) IU/L (units unknown) (unknown) (unknown) (no date) (unknown) (unknown) AST 30 (17-59) IU/L (units unknown) (unknown) (unknown) (no date) (unknown) (unknown) Activity Restrictions/Additi onal Instructions: (units unknown) (unknown) (unknown) (no date) (unknown) (unknown) Additional findings:? (units unknown) (unknown) (unknown) (no date) (unknown) (unknown) Age/Sex: 86 / M (units unknown) (unknown) (unknown) (no date) (unknown) (unknown) Albumin (3.5-5.0) g/dL (units unknown) (unknown) (unknown) (no date) (unknown) (unknown) Albumin 5.0 (3.5-5.0) g/dL (units unknown) (unknown) (unknown) (no date) (unknown) (unknown) Albumin/Globulin Ratio (1.0-2.8) (units unknown) (unknown) (unknown) (no date) (unknown) (unknown) Albumin/Globulin Ratio 1.3 (1.0-2.8) (units unknown) (unknown) (unknown) (no date) (unknown) (unknown) Alkaline Phosphatase (38-126) U/L (units unknown) (unknown) (unknown) (no date) (unknown) (unknown) Alkaline Phosphatase 83 (38-126) U/L (units unknown) (unknown) (unknown) (no date) (unknown) (unknown) Allergies (units unknown) (unknown) (unknown) (no date) (unknown) (unknown) Allergy/AdvReac Type Severity Reaction Status Date / Time (units unknown) (unknown) (unknown) (no date) (unknown) (unknown) Anterior circulation:? Intracranial internal carotid arteries are normal in size (units unknown) (unknown) (unknown) (no date) (unknown) (unknown) Any quantitative measurements of stenosis were performed using NASCET criteria.? (units unknown) (unknown) (unknown) (no date) (unknown) (unknown) Approved by: Rian Rogers M.D. on 08/09/2022 at 12:30 ? (units unknown) (unknown) (unknown) (no date) (unknown) (unknown) Atrial fibrillation rate 78 ST depression and T-wave inversion noted in lead 3 (units unknown) (unknown) (unknown) (no date) (unknown) (unknown) Atrial fibrillation (units unknown) (unknown) (unknown) (no date) (unknown) (unknown) BRAIN:? (units unknown) (unknown) (unknown) (no date) (unknown) (unknown) BUN (9-20) mg/dL (units unknown) (unknown) (unknown) (no date) (unknown) (unknown) BUN 29 H (9-20) mg/dL (units unknown) (unknown) (unknown) (no date) (unknown) (unknown) BUN/Creatinine Ratio (6-22) (units unknown) (unknown) (unknown) (no date) (unknown) (unknown) BUN/Creatinine Ratio 23.6 H (6-22) (units unknown) (unknown) (unknown) (no date) (unknown) (unknown) Baso # (Auto) (0-100) /uL (units unknown) (unknown) (unknown) (no date) (unknown) (unknown) Baso # (Auto) 100 (0-100) /uL (units unknown) (unknown) (unknown) (no date) (unknown) (unknown) Baso % (Auto) (0-2) % (units unknown) (unknown) (unknown) (no date) (unknown) (unknown) Baso % (Auto) 0.9 (0-2) % (units unknown) (unknown) (unknown) (no date) (unknown) (unknown) Blood Culture Stat (units unknown) (unknown) (unknown) (no date) (unknown) (unknown) Blood Pressure 113/71 (units unknown) (unknown) (unknown) (no date) (unknown) (unknown) Blood Pressure 121/68 (units unknown) (unknown) (unknown) (no date) (unknown) (unknown) Blood Pressure 123/67 (units unknown) (unknown) (unknown) (no date) (unknown) (unknown) Blood Pressure 139/74 08/09/22 11:55 (units unknown) (unknown) (unknown) (no date) (unknown) (unknown) Blood Pressure 139/74 (units unknown) (unknown) (unknown) (no date) (unknown) (unknown) Bones and chest wall:? No suspicious bony lesions.? Right shoulder DJD.? (units unknown) (unknown) (unknown) (no date) (unknown) (unknown) Bones:? No suspicious bony lesions.? Visualized cervical spine appears normally (units unknown) (unknown) (unknown) (no date) (unknown) (unknown) Brain:? No midline shift.? No intracranial bleeds or masses.? Ortiz-white matter (units unknown) (unknown) (unknown) (no date) (unknown) (unknown) CARDIOVASCULAR: Regular rate and rhythm without murmurs, rubs or gallops. (units unknown) (unknown) (unknown) (no date) (unknown) (unknown) CK-MB (CK-2) (<2.37) ng/mL (units unknown) (unknown) (unknown) (no date) (unknown) (unknown) CK-MB (CK-2) 1.33 (<2.37) ng/mL (units unknown) (unknown) (unknown) (no date) (unknown) (unknown) CK-MB (CK-2) Rel Index (1.5-5.0) % (units unknown) (unknown) (unknown) (no date) (unknown) (unknown) CK-MB (CK-2) Rel Index 1.2 L (1.5-5.0) % (units unknown) (unknown) (unknown) (no date) (unknown) (unknown) COMPARISON:[facility], CT, CT ANGIO HEAD AND NECK, 08/09/2022, 12:47.? (units unknown) (unknown) (unknown) (no date) (unknown) (unknown) COMPARISON:[facility], MR, STROKE PROTOCOL A, 01/02/2010, 19:35.? [place] (units unknown) (unknown) (unknown) (no date) (unknown) (unknown) CSF spaces:? Ventricles are normal in size and shape.? Basal cisterns are (units unknown) (unknown) (unknown) (no date) (unknown) (unknown) CT angio head and neck Stat (units unknown) (unknown) (unknown) (no date) (unknown) (unknown) CT, CT HEAD/BRAIN WO [facility] [place], 07/16/2018, 18:37.? [facility], CT, CT HEAD/BRAIN (units unknown) (unknown) (unknown) (no date) (unknown) (unknown) CTA - brain/neck: (units unknown) (unknown) (unknown) (no date) (unknown) (unknown) Calcium (8.4-10.2) mg/dL (units unknown) (unknown) (unknown) (no date) (unknown) (unknown) Calcium 9.9 (8.4-10.2) mg/dL (units unknown) (unknown) (unknown) (no date) (unknown) (unknown) Carbon Dioxide (22-32) mmol/L (units unknown) (unknown) (unknown) (no date) (unknown) (unknown) Carbon Dioxide 27 (22-32) mmol/L (units unknown) (unknown) (unknown) (no date) (unknown) (unknown) Carotid system:? Atherosclerotic calcification is noted.? The great vessels (units unknown) (unknown) (unknown) (no date) (unknown) (unknown) Chest x-ray: (units unknown) (unknown) (unknown) (no date) (unknown) (unknown) Chief Complaint: Neuro Symptoms/Deficit (units unknown) (unknown) (unknown) (no date) (unknown) (unknown) Chloride (98-107) mmol/L (units unknown) (unknown) (unknown) (no date) (unknown) (unknown) Chloride 99 (98-107) mmol/L (units unknown) (unknown) (unknown) (no date) (unknown) (unknown) Evamly-ze-Gxzbhh developmental anomalies (units unknown) (unknown) (unknown) (no date) (unknown) (unknown) Clinical Impression: (units unknown) (unknown) (unknown) (no date) (unknown) (unknown) Complete Blood Count AUTO DIFF Stat (units unknown) (unknown) (unknown) (no date) (unknown) (unknown) Comprehensive Metabolic Panel Stat (units unknown) (unknown) (unknown) (no date) (unknown) (unknown) Course (units unknown) (unknown) (unknown) (no date) (unknown) (unknown) Creatinine (0.66-1.25) mg/dL (units unknown) (unknown) (unknown) (no date) (unknown) (unknown) Creatinine 1.23 (0.66-1.25) mg/dL (units unknown) (unknown) (unknown) (no date) (unknown) (unknown) D3 10 mcg (400 unit) tablet (units unknown) (unknown) (unknown) (no date) (unknown) (unknown) D3) (units unknown) (unknown) (unknown) (no date) (unknown) (unknown) : 1935 Acct:[id number] (units unknown) (unknown) (unknown) (no date) (unknown) (unknown) Date of Service: 08/09/22 (units unknown) (unknown) (unknown) (no date) (unknown) (unknown) Dementia (units unknown) (unknown) (unknown) (no date) (unknown) (unknown) Departure (units unknown) (unknown) (unknown) (no date) (unknown) (unknown) Dictated by: Rian Rogers M.D. on 08/09/2022 at 12:25 ? ? (units unknown) (unknown) (unknown) (no date) (unknown) (unknown) Dictated by: Andrzej Gonzales M.D. on 08/09/2022 at 13:59 ? ? (units unknown) (unknown) (unknown) (no date) (unknown) (unknown) Discharge Plan (units unknown) (unknown) (unknown) (no date) (unknown) (unknown) Documented By: SPF (units unknown) (unknown) (unknown) (no date) (unknown) (unknown) ECG Data (units unknown) (unknown) (unknown) (no date) (unknown) (unknown) ED Orders (units unknown) (unknown) (unknown) (no date) (unknown) (unknown) EKG-12 Lead Stat (units unknown) (unknown) (unknown) (no date) (unknown) (unknown) ER Physician: Eulalia Hilliard D.O. (units unknown) (unknown) (unknown) (no date) (unknown) (unknown) EXTREMITIES: Normal range of motion, no clubbing or edema. Neurovascularly (units unknown) (unknown) (unknown) (no date) (unknown) (unknown) Emergency Report (units unknown) (unknown) (unknown) (no date) (unknown) (unknown) Eos # (Auto) (0-450) /uL (units unknown) (unknown) (unknown) (no date) (unknown) (unknown) Eos # (Auto) 400 (0-450) /uL (units unknown) (unknown) (unknown) (no date) (unknown) (unknown) Eos % (Auto) (2-4) % (units unknown) (unknown) (unknown) (no date) (unknown) (unknown) Eos % (Auto) 6.5 H (2-4) % (units unknown) (unknown) (unknown) (no date) (unknown) (unknown) Estimated GFR (>60) mL/min (units unknown) (unknown) (unknown) (no date) (unknown) (unknown) Estimated GFR 57 L (>60) mL/min (units unknown) (unknown) (unknown) (no date) (unknown) (unknown) Exam (units unknown) (unknown) (unknown) (no date) (unknown) (unknown) Extensive cervical spine postoperative and degenerative change.? (units unknown) (unknown) (unknown) (no date) (unknown) (unknown) Extensive postoperative and degenerative changes can be seen of the cervical (units unknown) (unknown) (unknown) (no date) (unknown) (unknown) FINDINGS:? (units unknown) (unknown) (unknown) (no date) (unknown) (unknown) GENERAL: Alert pleasantly confused 86-year-old male and in no acute distress. (units unknown) (unknown) (unknown) (no date) (unknown) (unknown) General (units unknown) (unknown) (unknown) (no date) (unknown) (unknown) Globulin (1.7-4.1) g/dL (units unknown) (unknown) (unknown) (no date) (unknown) (unknown) Globulin 4.0 (1.7-4.1) g/dL (units unknown) (unknown) (unknown) (no date) (unknown) (unknown) Glucose (80-110) mg/dL (units unknown) (unknown) (unknown) (no date) (unknown) (unknown) Glucose 145 H (80-110) mg/dL (units unknown) (unknown) (unknown) (no date) (unknown) (unknown) HEAD CT ANGIOGRAPHY:? (units unknown) (unknown) (unknown) (no date) (unknown) (unknown) HEENT: Head atraumatic,EOMI, pupils reactive, face symmetric, moist mucous (units unknown) (unknown) (unknown) (no date) (unknown) (unknown) HPI - Neuro Symptoms/Deficit (units unknown) (unknown) (unknown) (no date) (unknown) (unknown) HPI Narrative: (units unknown) (unknown) (unknown) (no date) (unknown) (unknown) Hct (41-53) % (units unknown) (unknown) (unknown) (no date) (unknown) (unknown) Hct 38.7 L (41-53) % (units unknown) (unknown) (unknown) (no date) (unknown) (unknown) He is able to follow commands but is confused. No abdominal pain no nausea or (units unknown) (unknown) (unknown) (no date) (unknown) (unknown) Hematologic/Lymphat ic (units unknown) (unknown) (unknown) (no date) (unknown) (unknown) Hgb (13.5-17.5) g/dL (units unknown) (unknown) (unknown) (no date) (unknown) (unknown) Hgb 13.0 L (13.5-17.5) g/dL (units unknown) (unknown) (unknown) (no date) (unknown) (unknown) History of Present Illness (units unknown) (unknown) (unknown) (no date) (unknown) (unknown) Home Medications (units unknown) (unknown) (unknown) (no date) (unknown) (unknown) Hospital, CR, XR CHEST 2V, 02/10/2020, 12:59.[facility], CR, CHEST 1 VIEW, (units unknown) (unknown) (unknown) (no date) (unknown) (unknown) Hospital, (units unknown) (unknown) (unknown) (no date) (unknown) (unknown) Hyperglycemia (units unknown) (unknown) (unknown) (no date) (unknown) (unknown) Hypertension (units unknown) (unknown) (unknown) (no date) (unknown) (unknown) IMPRESSION:? (units unknown) (unknown) (unknown) (no date) (unknown) (unknown) INDICATIONS:? chest pain (units unknown) (unknown) (unknown) (no date) (unknown) (unknown) INDICATIONS:? confusion since last night (units unknown) (unknown) (unknown) (no date) (unknown) (unknown) INR (0.9-1.3) (units unknown) (unknown) (unknown) (no date) (unknown) (unknown) INR 1.8 H (0.9-1.3) (units unknown) (unknown) (unknown) (no date) (unknown) (unknown) Image quality:? Mild streak artifact can be seen through the skull base. (units unknown) (unknown) (unknown) (no date) (unknown) (unknown) Imaging Data (units unknown) (unknown) (unknown) (no date) (unknown) (unknown) Initial Vital Signs (units unknown) (unknown) (unknown) (no date) (unknown) (unknown) Initial Vital Signs: (units unknown) (unknown) (unknown) (no date) (unknown) (unknown) Instructions: Dementia (units unknown) (unknown) (unknown) (no date) (unknown) (unknown) Interpretation: (units unknown) (unknown) (unknown) (no date) (unknown) (unknown) [address] [address] (units unknown) (unknown) (unknown) (no date) (unknown) (unknown) [place] (units unknown) (unknown) (unknown) (no date) (unknown) (unknown) Lab Data (units unknown) (unknown) (unknown) (no date) (unknown) (unknown) Lab Results (units unknown) (unknown) (unknown) (no date) (unknown) (unknown) Labs: (units unknown) (unknown) (unknown) (no date) (unknown) (unknown) Lactate (0.7-2.1) mmol/L (units unknown) (unknown) (unknown) (no date) (unknown) (unknown) Lactate (Lactic Acid) Stat (units unknown) (unknown) (unknown) (no date) (unknown) (unknown) Lactate 2.6 H (0.7-2.1) mmol/L (units unknown) (unknown) (unknown) (no date) (unknown) (unknown) Last Admin: 08/09/22 13:43 Dose: 150 mls/hr (units unknown) (unknown) (unknown) (no date) (unknown) (unknown) Lipase (23-300) U/L (units unknown) (unknown) (unknown) (no date) (unknown) (unknown) Lipase 379 H (23-300) U/L (units unknown) (unknown) (unknown) (no date) (unknown) (unknown) Lipase Stat (units unknown) (unknown) (unknown) (no date) (unknown) (unknown) Lungs and pleura:? Lungs are clear.? No pleural effusions or pneumothorax.? (units unknown) (unknown) (unknown) (no date) (unknown) (unknown) Lymph # (Auto) (7868-7275) /uL (units unknown) (unknown) (unknown) (no date) (unknown) (unknown) Lymph # (Auto) 1000 L (4053-1087) /uL (units unknown) (unknown) (unknown) (no date) (unknown) (unknown) Lymph % (Auto) (25-40) % (units unknown) (unknown) (unknown) (no date) (unknown) (unknown) Lymph % (Auto) 17.8 L (25-40) % (units unknown) (unknown) (unknown) (no date) (unknown) (unknown) MCH (26-34) PG (units unknown) (unknown) (unknown) (no date) (unknown) (unknown) MCH 32.7 (26-34) PG (units unknown) (unknown) (unknown) (no date) (unknown) (unknown) MCHC (30-36) % (units unknown) (unknown) (unknown) (no date) (unknown) (unknown) MCHC 33.7 (30-36) % (units unknown) (unknown) (unknown) (no date) (unknown) (unknown) MCV (80-100) fL (units unknown) (unknown) (unknown) (no date) (unknown) (unknown) MCV 97.0 (80-100) fL (units unknown) (unknown) (unknown) (no date) (unknown) (unknown) MDM - Neuro Symptoms/Deficit (units unknown) (unknown) (unknown) (no date) (unknown) (unknown) MDM Narrative (units unknown) (unknown) (unknown) (no date) (unknown) (unknown) Mediastinum:? Mediastinal contours appear unchanged.? Heart size is normal.? (units unknown) (unknown) (unknown) (no date) (unknown) (unknown) Medical History (Updated 08/09/22 @ 15:38 by Eulalia Hilliard DO) (units unknown) (unknown) (unknown) (no date) (unknown) (unknown) Medical decision making narrative: (units unknown) (unknown) (unknown) (no date) (unknown) (unknown) Medication Instructions Recorded Confirmed (units unknown) (unknown) (unknown) (no date) (unknown) (unknown) Migraines (units unknown) (unknown) (unknown) (no date) (unknown) (unknown) Mode of arrival: Ambulatory (units unknown) (unknown) (unknown) (no date) (unknown) (unknown) [place] # (Auto) (0-900) /uL (units unknown) (unknown) (unknown) (no date) (unknown) (unknown) [place] # (Auto) 500 (0-900) /uL (units unknown) (unknown) (unknown) (no date) (unknown) (unknown) [place] % (Auto) (3-14) % (units unknown) (unknown) (unknown) (no date) (unknown) (unknown) [place] % (Auto) 9.1 (3-14) % (units unknown) (unknown) (unknown) (no date) (unknown) (unknown) Move [facility] 750 mg-100 mg- 1.65 mg-108 mg Tablet (units unknown) (unknown) (unknown) (no date) (unknown) (unknown) NECK CT ANGIOGRAPHY:? (units unknown) (unknown) (unknown) (no date) (unknown) (unknown) NEUROLOGICAL: Alert and oriented x1.Normal gait and speech. Cranial nerves II (units unknown) (unknown) (unknown) (no date) (unknown) (unknown) Neut # (Auto) (4796-4627) /uL (units unknown) (unknown) (unknown) (no date) (unknown) (unknown) Neut # (Auto) 3800 (4613-5144) /uL (units unknown) (unknown) (unknown) (no date) (unknown) (unknown) Neut % (Auto) (50-75) % (units unknown) (unknown) (unknown) (no date) (unknown) (unknown) Neut % (Auto) 65.7 (50-75) % (units unknown) (unknown) (unknown) (no date) (unknown) (unknown) No Action (units unknown) (unknown) (unknown) (no date) (unknown) (unknown) No acute cardiopulmonary abnormality. (units unknown) (unknown) (unknown) (no date) (unknown) (unknown) No acute intracranial process is seen.? (units unknown) (unknown) (unknown) (no date) (unknown) (unknown) No significant intracranial arterial abnormality is seen.? (units unknown) (unknown) (unknown) (no date) (unknown) (unknown) On Anticoagulants: Yes (units unknown) (unknown) (unknown) (no date) (unknown) (unknown) Orbits appear normal.? (units unknown) (unknown) (unknown) (no date) (unknown) (unknown) Ordered: (units unknown) (unknown) (unknown) (no date) (unknown) (unknown) Orders (units unknown) (unknown) (unknown) (no date) (unknown) (unknown) Overlying soft (units unknown) (unknown) (unknown) (no date) (unknown) (unknown) Oxygen Delivery Method Room Air 08/09/22 11:55 (units unknown) (unknown) (unknown) (no date) (unknown) (unknown) Oxygen Delivery Method Room Air (units unknown) (unknown) (unknown) (no date) (unknown) (unknown) Oxygen Delivery Method (units unknown) (unknown) (unknown) (no date) (unknown) (unknown) PROCEDURE:? CT ANGIO HEAD AND NECK (units unknown) (unknown) (unknown) (no date) (unknown) (unknown) PROCEDURE:? XR CHEST 1V (units unknown) (unknown) (unknown) (no date) (unknown) (unknown) PT (10.1-12.7) SECONDS (units unknown) (unknown) (unknown) (no date) (unknown) (unknown) PT 21.0 H (10.1-12.7) SECONDS (units unknown) (unknown) (unknown) (no date) (unknown) (unknown) PTT Partial Thromboplastin [place] Stat (units unknown) (unknown) (unknown) (no date) (unknown) (unknown) Pacemaker (units unknown) (unknown) (unknown) (no date) (unknown) (unknown) Patient 86-year-old male history of atrial fibrillation on warfarin, presents (units unknown) (unknown) (unknown) (no date) (unknown) (unknown) Patient 86-year-old male who actually does have some cognitive deficits (units unknown) (unknown) (unknown) (no date) (unknown) (unknown) Patient Comments: (units unknown) (unknown) (unknown) (no date) (unknown) (unknown) Patient Disposition: Home (units unknown) (unknown) (unknown) (no date) (unknown) (unknown) Patient History (units unknown) (unknown) (unknown) (no date) (unknown) (unknown) Patient: Mando Gomez MR#: [id number] (units unknown) (unknown) (unknown) (no date) (unknown) (unknown) Plt Count (150-400) X103/uL (units unknown) (unknown) (unknown) (no date) (unknown) (unknown) Plt Count 169 (150-400) X103/uL (units unknown) (unknown) (unknown) (no date) (unknown) (unknown) Posterior circulation:? The origins of the vertebral arteries both appear widely (units unknown) (unknown) (unknown) (no date) (unknown) (unknown) Posterior circulation:? The right V4 segment is within normal limits.? The left (units unknown) (unknown) (unknown) (no date) (unknown) (unknown) Potassium (3.4-5.1) mmol/L (units unknown) (unknown) (unknown) (no date) (unknown) (unknown) Potassium 4.7 (3.4-5.1) mmol/L (units unknown) (unknown) (unknown) (no date) (unknown) (unknown) Pre-contrast 4.5 mm thick sections acquired from the foramen magnum to the (units unknown) (unknown) (unknown) (no date) (unknown) (unknown) Prescriptions: (units unknown) (unknown) (unknown) (no date) (unknown) (unknown) Procalcitonin (<0.5) ng/mL (units unknown) (unknown) (unknown) (no date) (unknown) (unknown) Procalcitonin 0.04 (<0.5) ng/mL (units unknown) (unknown) (unknown) (no date) (unknown) (unknown) Procalcitonin Stat (units unknown) (unknown) (unknown) (no date) (unknown) (unknown) Prothrombin Time INR Stat (units unknown) (unknown) (unknown) (no date) (unknown) (unknown) Pulse Oximetry 100 100 (units unknown) (unknown) (unknown) (no date) (unknown) (unknown) Pulse Oximetry 100 (units unknown) (unknown) (unknown) (no date) (unknown) (unknown) Pulse Oximetry 98 08/09/22 11:55 (units unknown) (unknown) (unknown) (no date) (unknown) (unknown) Pulse Oximetry 98 100 (units unknown) (unknown) (unknown) (no date) (unknown) (unknown) Pulse Oximetry 98 99 99 (units unknown) (unknown) (unknown) (no date) (unknown) (unknown) Pulse Rate 69 64 (units unknown) (unknown) (unknown) (no date) (unknown) (unknown) Pulse Rate 70 (units unknown) (unknown) (unknown) (no date) (unknown) (unknown) Pulse Rate 72 68 (units unknown) (unknown) (unknown) (no date) (unknown) (unknown) Pulse Rate 80 08/09/22 11:55 (units unknown) (unknown) (unknown) (no date) (unknown) (unknown) Pulse Rate 80 78 82 (units unknown) (unknown) (unknown) (no date) (unknown) (unknown) RBC (4.5-5.9) X106/uL (units unknown) (unknown) (unknown) (no date) (unknown) (unknown) RBC 3.98 L (4.5-5.9) X106/uL (units unknown) (unknown) (unknown) (no date) (unknown) (unknown) RDW (11.6-14.8) % (units unknown) (unknown) (unknown) (no date) (unknown) (unknown) RDW 14.4 (11.6-14.8) % (units unknown) (unknown) (unknown) (no date) (unknown) (unknown) RESPIRATORY: Breath sounds equal bilaterally, no wheezes rales or rhonchi. (units unknown) (unknown) (unknown) (no date) (unknown) (unknown) ROS Unobtainable: All systems reviewed + are unremarkable except as noted in HPI (units unknown) (unknown) (unknown) (no date) (unknown) (unknown) Radiologist's Impression: (units unknown) (unknown) (unknown) (no date) (unknown) (unknown) Referrals: (units unknown) (unknown) (unknown) (no date) (unknown) (unknown) Related Data (units unknown) (unknown) (unknown) (no date) (unknown) (unknown) Relief) (units unknown) (unknown) (unknown) (no date) (unknown) (unknown) Respiratory Rate 15 (units unknown) (unknown) (unknown) (no date) (unknown) (unknown) Respiratory Rate 16 08/09/22 11:55 (units unknown) (unknown) (unknown) (no date) (unknown) (unknown) Respiratory Rate 16 18 18 (units unknown) (unknown) (unknown) (no date) (unknown) (unknown) Respiratory Rate 17 15 (units unknown) (unknown) (unknown) (no date) (unknown) (unknown) Respiratory Rate 23 16 (units unknown) (unknown) (unknown) (no date) (unknown) (unknown) Review of Systems (units unknown) (unknown) (unknown) (no date) (unknown) (unknown) Rx Instructions: (units unknown) (unknown) (unknown) (no date) (unknown) (unknown) SKIN: Warm, dry, no laceration, no petechiae, no rashes or lesions. (units unknown) (unknown) (unknown) (no date) (unknown) (unknown) SWELLING (units unknown) (unknown) (unknown) (no date) (unknown) (unknown) Signed By: (units unknown) (unknown) (unknown) (no date) (unknown) (unknown) Sinuses:? Sinuses and mastoids are clear.? (units unknown) (unknown) (unknown) (no date) (unknown) (unknown) Skull and face:? Calvarium and facial bones appear intact, without suspicious (units unknown) (unknown) (unknown) (no date) (unknown) (unknown) Smoking Status: Never smoker (units unknown) (unknown) (unknown) (no date) (unknown) (unknown) Social History (units unknown) (unknown) (unknown) (no date) (unknown) (unknown) Sodium (137-145) mmol/L (units unknown) (unknown) (unknown) (no date) (unknown) (unknown) Sodium 137 (137-145) mmol/L (units unknown) (unknown) (unknown) (no date) (unknown) (unknown) Sodium Chloride (Normal Saline 0.9%) 1,000 mls @ 150 mls/hr IV CONT PREET (units unknown) (unknown) (unknown) (no date) (unknown) (unknown) Soft tissues:? Visualized neck soft tissues demonstrate no suspicious (units unknown) (unknown) (unknown) (no date) (unknown) (unknown) Source: family (units unknown) (unknown) (unknown) (no date) (unknown) (unknown) Stand Alone Forms: Patient Portal/API (units unknown) (unknown) (unknown) (no date) (unknown) (unknown) Stated Complaint: sent by DR naik he had a stroke (units unknown) (unknown) (unknown) (no date) (unknown) (unknown) Substance Use Type: does not use (units unknown) (unknown) (unknown) (no date) (unknown) (unknown) Surgical changes and devices:? Cervical spine hardware.? Left pacemaker with (units unknown) (unknown) (unknown) (no date) (unknown) (unknown) Clari Pacheco MD [Primary Care Provider] (units unknown) (unknown) (unknown) (no date) (unknown) (unknown) TECHNIQUE:? One view of the chest was acquired.? (units unknown) (unknown) (unknown) (no date) (unknown) (unknown) TECHNIQUE:? (units unknown) (unknown) (unknown) (no date) (unknown) (unknown) Tablet (units unknown) (unknown) (unknown) (no date) (unknown) (unknown) Takes 1.5 mg on Tuesdays and Saturdays (units unknown) (unknown) (unknown) (no date) (unknown) (unknown) Takes 3 mg on Saturday, Saturday, , Saturday and Saturday (units unknown) (unknown) (unknown) (no date) (unknown) (unknown) Temperature 97.6 F 08/09/22 11:55 (units unknown) (unknown) (unknown) (no date) (unknown) (unknown) Temperature 97.6 F (units unknown) (unknown) (unknown) (no date) (unknown) (unknown) Temperature (units unknown) (unknown) (unknown) (no date) (unknown) (unknown) The more superior extracranial portions of both vertebral arteries also (units unknown) (unknown) (unknown) (no date) (unknown) (unknown) There is a (units unknown) (unknown) (unknown) (no date) (unknown) (unknown) Time Seen by Provider: 08/09/22 12:07 (units unknown) (unknown) (unknown) (no date) (unknown) (unknown) Total Bilirubin (0.2-1.3) mg/dL (units unknown) (unknown) (unknown) (no date) (unknown) (unknown) Total Bilirubin 1.0 (0.2-1.3) mg/dL (units unknown) (unknown) (unknown) (no date) (unknown) (unknown) Total Creatine Kinase (55-170) U/L (units unknown) (unknown) (unknown) (no date) (unknown) (unknown) Total Creatine Kinase 112 (55-170) U/L (units unknown) (unknown) (unknown) (no date) (unknown) (unknown) Total Protein (6.3-8.2) g/dL (units unknown) (unknown) (unknown) (no date) (unknown) (unknown) Total Protein 9.0 H (6.3-8.2) g/dL (units unknown) (unknown) (unknown) (no date) (unknown) (unknown) Troponin + CK Cardiac Panel Stat (units unknown) (unknown) (unknown) (no date) (unknown) (unknown) Troponin I < 0.012 (0.01-0.034) ng/mL (units unknown) (unknown) (unknown) (no date) (unknown) (unknown) Troponin I (0.01-0.034) ng/mL (units unknown) (unknown) (unknown) (no date) (unknown) (unknown) Ur Culture Indicated? Cult not indicated (units unknown) (unknown) (unknown) (no date) (unknown) (unknown) Ur Culture Indicated? (units unknown) (unknown) (unknown) (no date) (unknown) (unknown) Ur Leukocyte Esterase (NEGATIVE) (units unknown) (unknown) (unknown) (no date) (unknown) (unknown) Ur Leukocyte Esterase Negative (NEGATIVE) (units unknown) (unknown) (unknown) (no date) (unknown) (unknown) Ur Specific [place] <=1.005 (1.000-1.035) (units unknown) (unknown) (unknown) (no date) (unknown) (unknown) Ur Specific [place] (1.000-1.035) (units unknown) (unknown) (unknown) (no date) (unknown) (unknown) Urinalysis and Microscopic Stat (units unknown) (unknown) (unknown) (no date) (unknown) (unknown) Urine Appearance Clear (units unknown) (unknown) (unknown) (no date) (unknown) (unknown) Urine Appearance (units unknown) (unknown) (unknown) (no date) (unknown) (unknown) Urine Bacteria (None) (units unknown) (unknown) (unknown) (no date) (unknown) (unknown) Urine Bacteria None seen (None) (units unknown) (unknown) (unknown) (no date) (unknown) (unknown) Urine Bilirubin (NEGATIVE) (units unknown) (unknown) (unknown) (no date) (unknown) (unknown) Urine Bilirubin Negative (NEGATIVE) (units unknown) (unknown) (unknown) (no date) (unknown) (unknown) Urine Color Yellow (units unknown) (unknown) (unknown) (no date) (unknown) (unknown) Urine Color (units unknown) (unknown) (unknown) (no date) (unknown) (unknown) Urine Glucose (UA) (Negative) g/dL (units unknown) (unknown) (unknown) (no date) (unknown) (unknown) Urine Glucose (UA) Negative (Negative) g/dL (units unknown) (unknown) (unknown) (no date) (unknown) (unknown) Urine Ketones (NEGATIVE) (units unknown) (unknown) (unknown) (no date) (unknown) (unknown) Urine Ketones Negative (NEGATIVE) (units unknown) (unknown) (unknown) (no date) (unknown) (unknown) Urine Nitrate (Negative) (units unknown) (unknown) (unknown) (no date) (unknown) (unknown) Urine Nitrate Negative (Negative) (units unknown) (unknown) (unknown) (no date) (unknown) (unknown) Urine Occult Blood (Negative) (units unknown) (unknown) (unknown) (no date) (unknown) (unknown) Urine Occult Blood Negative (Negative) (units unknown) (unknown) (unknown) (no date) (unknown) (unknown) Urine Protein (Negative) (units unknown) (unknown) (unknown) (no date) (unknown) (unknown) Urine Protein Negative (Negative) (units unknown) (unknown) (unknown) (no date) (unknown) (unknown) Urine RBC (0-5/HPF) (units unknown) (unknown) (unknown) (no date) (unknown) (unknown) Urine RBC None seen (0-5/HPF) (units unknown) (unknown) (unknown) (no date) (unknown) (unknown) Urine Urobilinogen (0.2) E.U./dL (units unknown) (unknown) (unknown) (no date) (unknown) (unknown) Urine Urobilinogen 0.2 (0.2) E.U./dL (units unknown) (unknown) (unknown) (no date) (unknown) (unknown) Urine WBC (0-5/HPF) (units unknown) (unknown) (unknown) (no date) (unknown) (unknown) Urine WBC None seen (0-5/HPF) (units unknown) (unknown) (unknown) (no date) (unknown) (unknown) Urine pH (4.5-8.0) (units unknown) (unknown) (unknown) (no date) (unknown) (unknown) Urine pH 6.0 (4.5-8.0) (units unknown) (unknown) (unknown) (no date) (unknown) (unknown) V4 (units unknown) (unknown) (unknown) (no date) (unknown) (unknown) Vital Signs - 8 hr (units unknown) (unknown) (unknown) (no date) (unknown) (unknown) Vital Signs (units unknown) (unknown) (unknown) (no date) (unknown) (unknown) Vital signs: (units unknown) (unknown) (unknown) (no date) (unknown) (unknown) WBC (4.5-11.0) X103/uL (units unknown) (unknown) (unknown) (no date) (unknown) (unknown) WBC 5.8 (4.5-11.0) X103/uL (units unknown) (unknown) (unknown) (no date) (unknown) (unknown) WO CON, (units unknown) (unknown) (unknown) (no date) (unknown) (unknown) [place], of typically no clinical consequence.? The flow within the paired (units unknown) (unknown) (unknown) (no date) (unknown) (unknown) Within the arteries of the neck, no hemodynamically significant stenosis can be (units unknown) (unknown) (unknown) (no date) (unknown) (unknown) XR chest 1V Stat (units unknown) (unknown) (unknown) (no date) (unknown) (unknown) [Embedded Image Not Available] (units unknown) (unknown) (unknown) (no date) (unknown) (unknown) abnormalities.? A (units unknown) (unknown) (unknown) (no date) (unknown) (unknown) acquired (units unknown) (unknown) (unknown) (no date) (unknown) (unknown) alcohol intake frequency: 0-2 drinks per day (units unknown) (unknown) (unknown) (no date) (unknown) (unknown) alfuzosin 10 mg tablet,extended 10 mg PO QDAY ##0 02/28/17 05/09/19 (units unknown) (unknown) (unknown) (no date) (unknown) (unknown) alfuzosin [Uroxatral] 10 MG tablet extended release 24 hr (units unknown) (unknown) (unknown) (no date) (unknown) (unknown) aligned.? (units unknown) (unknown) (unknown) (no date) (unknown) (unknown) amiodarone [AMIODARONE] Allergy Severe FACIAL Verified 05/08/19 17:47 (units unknown) (unknown) (unknown) (no date) (unknown) (unknown) and below (units unknown) (unknown) (unknown) (no date) (unknown) (unknown) and courses.? The bifurcation regions demonstrate generalized atherosclerotic (units unknown) (unknown) (unknown) (no date) (unknown) (unknown) and neck separately. For radiation dose reduction, the following was used:? (units unknown) (unknown) (unknown) (no date) (unknown) (unknown) and right ventricular leads. (units unknown) (unknown) (unknown) (no date) (unknown) (unknown) and symmetric.? No aneurysms are seen.? (units unknown) (unknown) (unknown) (no date) (unknown) (unknown) and (units unknown) (unknown) (unknown) (no date) (unknown) (unknown) and/or volume rendering reformats were acquired of the central intracranial (units unknown) (unknown) (unknown) (no date) (unknown) (unknown) anterior (units unknown) (unknown) (unknown) (no date) (unknown) (unknown) appears intact.? (units unknown) (unknown) (unknown) (no date) (unknown) (unknown) arch through the [place] of [place].? Post-contrast 4.5 mm thick sections then re (units unknown) (unknown) (unknown) (no date) (unknown) (unknown) arteries is normal and symmetric, with note made of focal atherosclerotic (units unknown) (unknown) (unknown) (no date) (unknown) (unknown) artery is (units unknown) (unknown) (unknown) (no date) (unknown) (unknown) atorvastatin 10 mg Tablet (units unknown) (unknown) (unknown) (no date) (unknown) (unknown) atorvastatin 10 mg tablet 10 mg PO BEDTIME 05/09/19 05/09/19 (units unknown) (unknown) (unknown) (no date) (unknown) (unknown) automated (units unknown) (unknown) (unknown) (no date) (unknown) (unknown) bilaterally, no visual changes, no facial droop (units unknown) (unknown) (unknown) (no date) (unknown) (unknown) calcification (units unknown) (unknown) (unknown) (no date) (unknown) (unknown) calcium carbonate 500 mg-vitamin 1 tab PO BID 05/09/19 05/09/19 (units unknown) (unknown) (unknown) (no date) (unknown) (unknown) calcium carbonate-vitamin D3 [Calcium 500 + D] 500 mg(1,250mg) -400 unit (units unknown) (unknown) (unknown) (no date) (unknown) (unknown) caliber (units unknown) (unknown) (unknown) (no date) (unknown) (unknown) carotid arteries appear patent.? The common carotid arteries demonstrate normal (units unknown) (unknown) (unknown) (no date) (unknown) (unknown) cerebral arteries is otherwise within normal limits.? The flow within the middle (units unknown) (unknown) (unknown) (no date) (unknown) (unknown) cerebral (units unknown) (unknown) (unknown) (no date) (unknown) (unknown) cholecalciferol (vitamin D3) 25 1,000 unit PO DAILY 05/09/19 05/09/19 (units unknown) (unknown) (unknown) (no date) (unknown) (unknown) cholecalciferol (vitamin D3) [Vitamin D3] 1,000 unit Capsule (units unknown) (unknown) (unknown) (no date) (unknown) (unknown) codeine [CODEINE] AdvReac Intermediate N/V Verified 05/08/19 17:47 (units unknown) (unknown) (unknown) (no date) (unknown) (unknown) common (units unknown) (unknown) (unknown) (no date) (unknown) (unknown) concerned for acute CVA this is probably worsening of disease dementia I do not (units unknown) (unknown) (unknown) (no date) (unknown) (unknown) confusion however last night it got significantly worse seems to remain the same (units unknown) (unknown) (unknown) (no date) (unknown) (unknown) conventional anatomy as they arise from the aortic arch.? The origins of the (units unknown) (unknown) (unknown) (no date) (unknown) (unknown) cyanocobalamin (vitamin B-12) 100 100 mcg PO BID 05/09/19 05/09/19 (units unknown) (unknown) (unknown) (no date) (unknown) (unknown) cyanocobalamin (vitamin B-12) [Vitamin B-12] 100 mcg Tablet (units unknown) (unknown) (unknown) (no date) (unknown) (unknown) demonstrate a (units unknown) (unknown) (unknown) (no date) (unknown) (unknown) demonstrate (units unknown) (unknown) (unknown) (no date) (unknown) (unknown) electrolyte abnormality no sign of infection. Lactate however is mildly (units unknown) (unknown) (unknown) (no date) (unknown) (unknown) elevated at 2.6 but improves with some mild fluids 1 point. Not significantly (units unknown) (unknown) (unknown) (no date) (unknown) (unknown) equal bilaterally, no dysarthria or aphasia, sensation in tact to soft touch (units unknown) (unknown) (unknown) (no date) (unknown) (unknown) exposure control, adjustment of mA and/or kV according to patient size.? (units unknown) (unknown) (unknown) (no date) (unknown) (unknown) extra-axial fluid collections.? (units unknown) (unknown) (unknown) (no date) (unknown) (unknown) facial droop or any new, worsening or concerning symptoms (units unknown) (unknown) (unknown) (no date) (unknown) (unknown) ferrous sulfate 324 mg (65 mg 324 mg PO DAILY 05/09/19 05/09/19 (units unknown) (unknown) (unknown) (no date) (unknown) (unknown) ferrous sulfate 324 mg (65 mg iron) Tablet,Delayed Release (Dr/Ec) (units unknown) (unknown) (unknown) (no date) (unknown) (unknown) flow.? There is a diminutive left A1 segment, with a corresponding robust right (units unknown) (unknown) (unknown) (no date) (unknown) (unknown) fluticasone propionate 50 2 spray intranasal BID ##0 06/14/11 05/09/19 (units unknown) (unknown) (unknown) (no date) (unknown) (unknown) fluticasone propionate [Flonase Allergy Relief] 9.9 ML spray,suspension (units unknown) (unknown) (unknown) (no date) (unknown) (unknown) from the foramen magnum to the vertex.? 3-dimensional (units unknown) (unknown) (unknown) (no date) (unknown) (unknown) glucosam 750 mg-chondroi 100 2 tab PO DAILY 05/09/19 05/09/19 (units unknown) (unknown) (unknown) (no date) (unknown) (unknown) guarding or rebound. (units unknown) (unknown) (unknown) (no date) (unknown) (unknown) household members: spouse (units unknown) (unknown) (unknown) (no date) (unknown) (unknown) hydromorphone [HYDROMORPHONE] AdvReac Intermediate N/V Verified 05/08/19 17:47 (units unknown) (unknown) (unknown) (no date) (unknown) (unknown) impairment. Today he has no focal deficits he is confused about time and (units unknown) (unknown) (unknown) (no date) (unknown) (unknown) intact (units unknown) (unknown) (unknown) (no date) (unknown) (unknown) interface (units unknown) (unknown) (unknown) (no date) (unknown) (unknown) iron) tablet,delayed release (units unknown) (unknown) (unknown) (no date) (unknown) (unknown) irregularity and calcification, yet without a hemodynamically significant (units unknown) (unknown) (unknown) (no date) (unknown) (unknown) latex [LATEX] AdvReac Mild RASH Verified 05/08/19 17:47 (units unknown) (unknown) (unknown) (no date) (unknown) (unknown) left-sided pacer device is seen. (units unknown) (unknown) (unknown) (no date) (unknown) (unknown) left. (units unknown) (unknown) (unknown) (no date) (unknown) (unknown) lesions.? (units unknown) (unknown) (unknown) (no date) (unknown) (unknown) magnesium citrate 100 mg Tablet (units unknown) (unknown) (unknown) (no date) (unknown) (unknown) magnesium citrate 100 mg tablet 500 mg PO BID 05/09/19 05/09/19 (units unknown) (unknown) (unknown) (no date) (unknown) (unknown) wezhlpm-blxadrwex-x rojection (MIP) (units unknown) (unknown) (unknown) (no date) (unknown) (unknown) mcg (1,000 unit) capsule (Vitamin (units unknown) (unknown) (unknown) (no date) (unknown) (unknown) mcg tablet (Vitamin B-12) (units unknown) (unknown) (unknown) (no date) (unknown) (unknown) mcg/actuation nasal (units unknown) (unknown) (unknown) (no date) (unknown) (unknown) membranes (units unknown) (unknown) (unknown) (no date) (unknown) (unknown) metformin 1,000 mg Tablet (units unknown) (unknown) (unknown) (no date) (unknown) (unknown) metformin 1,000 mg tablet 1,000 mg PO BID 05/09/19 05/09/19 (units unknown) (unknown) (unknown) (no date) (unknown) (unknown) metoprolol succinate 25 mg 75 mg PO DAILY 05/09/19 05/09/19 (units unknown) (unknown) (unknown) (no date) (unknown) (unknown) metoprolol succinate 25 mg Tablet Extended Release 24 Hr (units unknown) (unknown) (unknown) (no date) (unknown) (unknown) mg-hyalur 1.65 mg-CF borate 108 mg (units unknown) (unknown) (unknown) (no date) (unknown) (unknown) more distal internal carotid arteries demonstrate normal course and caliber.? (units unknown) (unknown) (unknown) (no date) (unknown) (unknown) negative (units unknown) (unknown) (unknown) (no date) (unknown) (unknown) no ST elevations previous EKG showed a paced rhythm. That was 2017 reports (units unknown) (unknown) (unknown) (no date) (unknown) (unknown) normal appearing basilar artery. Flow within the posterior cerebral arteries is (units unknown) (unknown) (unknown) (no date) (unknown) (unknown) normal courses and calibers.? The right vertebral artery is dominant to the (units unknown) (unknown) (unknown) (no date) (unknown) (unknown) normal (units unknown) (unknown) (unknown) (no date) (unknown) (unknown) not recognize his . On the chart there is diagnosis of memory and cognition (units unknown) (unknown) (unknown) (no date) (unknown) (unknown) of the right M1 segment, as on series 9, image 89.? The anterior communicating (units unknown) (unknown) (unknown) (no date) (unknown) (unknown) of (units unknown) (unknown) (unknown) (no date) (unknown) (unknown) oxycodone [OXYCODONE] AdvReac Intermediate N/V Verified 05/08/19 17:47 (units unknown) (unknown) (unknown) (no date) (unknown) (unknown) patent.? No (units unknown) (unknown) (unknown) (no date) (unknown) (unknown) patent.? (units unknown) (unknown) (unknown) (no date) (unknown) (unknown) place. CT angio is negative chest x-ray is negative no leukocytosis no (units unknown) (unknown) (unknown) (no date) (unknown) (unknown) presenting today with increased confusion. I called and spoke with Dr. Clements (units unknown) (unknown) (unknown) (no date) (unknown) (unknown) release 24 hr (Uroxatral) (units unknown) (unknown) (unknown) (no date) (unknown) (unknown) right atrial (units unknown) (unknown) (unknown) (no date) (unknown) (unknown) see reason to admit to hospital at this time. Recommend outpatient follow-up. (units unknown) (unknown) (unknown) (no date) (unknown) (unknown) seen. ? (units unknown) (unknown) (unknown) (no date) (unknown) (unknown) seen.? No aneurysms are seen.? (units unknown) (unknown) (unknown) (no date) (unknown) (unknown) segment largely terminates in the left posterior inferior cerebellar artery.? (units unknown) (unknown) (unknown) (no date) (unknown) (unknown) segment.? This is considered to be a normal developmental variant of the [place] (units unknown) (unknown) (unknown) (no date) (unknown) (unknown) spine. (units unknown) (unknown) (unknown) (no date) (unknown) (unknown) spray,suspension (Flonase Allergy (units unknown) (unknown) (unknown) (no date) (unknown) (unknown) stenosis. The (units unknown) (unknown) (unknown) (no date) (unknown) (unknown) tablet ([place] [employer] [place]) (units unknown) (unknown) (unknown) (no date) (unknown) (unknown) tablet,extended release 24 hr (units unknown) (unknown) (unknown) (no date) (unknown) (unknown) that he 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 (units unknown) (unknown) (unknown) (no date) (unknown) (unknown) the administration of intravenous contrast, 1 mm thick sections acquired from (units unknown) (unknown) (unknown) (no date) (unknown) (unknown) the aortic (units unknown) (unknown) (unknown) (no date) (unknown) (unknown) through XII grossly intact. Good wyyiha-lu-btvl, good gtkb-gw-djpu, strength (units unknown) (unknown) (unknown) (no date) (unknown) (unknown) tissues appear unremarkable.? (units unknown) (unknown) (unknown) (no date) (unknown) (unknown) today with confusion that started last night. states that he may have some (units unknown) (unknown) (unknown) (no date) (unknown) (unknown) today. No fever chills he does not of any chest pain or shortness of breath. (units unknown) (unknown) (unknown) (no date) (unknown) (unknown) vasculature (units unknown) (unknown) (unknown) (no date) (unknown) (unknown) vertex.? After (units unknown) (unknown) (unknown) (no date) (unknown) (unknown) vomiting. He apparently was sent here by his PCP for rule out of stroke (units unknown) (unknown) (unknown) (no date) (unknown) (unknown) warfarin 1 MG tablet (units unknown) (unknown) (unknown) (no date) (unknown) (unknown) warfarin 1 mg tablet 1.5 mg PO SEEINSTR ##0 06/05/11 05/09/19 (units unknown) (unknown) (unknown) (no date) (unknown) (unknown) warfarin 3 mg Tablet (units unknown) (unknown) (unknown) (no date) (unknown) (unknown) warfarin 3 mg tablet 3 mg PO SEEINSTR 05/09/19 05/09/19 (units unknown) (unknown) (unknown) (no date) (unknown) (unknown) who sent him here concern for worsening confusion he apparently woke up and did (units unknown) (unknown) Result panel 127 (unknown) (no date) (unknown) (unknown) (no value) (units unknown) (unknown) (unknown) (no date) (unknown) (unknown) <Electronically signed by Eulalia Hilliard D.O.> (units unknown) (unknown) (unknown) (no date) (unknown) (unknown) (Calcium 500 + D) (units unknown) (unknown) (unknown) (no date) (unknown) (unknown) *Continue to take medications as directed (units unknown) (unknown) (unknown) (no date) (unknown) (unknown) *Follow up with your primary care provider in 2-3 days or call [phone] (units unknown) (unknown) (unknown) (no date) (unknown) (unknown) *Return to ER if you should have increased confusion weakness numbness tingling (units unknown) (unknown) (unknown) (no date) (unknown) (unknown) *What to do: This time I do not find any evidence of infection. CT was (units unknown) (unknown) (unknown) (no date) (unknown) (unknown) *You have been diagnosed with dementia (units unknown) (unknown) (unknown) (no date) (unknown) (unknown) [id number] (units unknown) (unknown) (unknown) (no date) (unknown) (unknown) 08/09/22 08/09/22 08/09/22 Range/Units (units unknown) (unknown) (unknown) (no date) (unknown) (unknown) 08/09/22 12:02 (units unknown) (unknown) (unknown) (no date) (unknown) (unknown) 08/09/22 12:05 (units unknown) (unknown) (unknown) (no date) (unknown) (unknown) 08/09/22 12:07 (units unknown) (unknown) (unknown) (no date) (unknown) (unknown) 08/09/22 12:08 (units unknown) (unknown) (unknown) (no date) (unknown) (unknown) 08/09/22 12:30 (units unknown) (unknown) (unknown) (no date) (unknown) (unknown) 08/09/22 13:52 (units unknown) (unknown) (unknown) (no date) (unknown) (unknown) 08/09/22 1838 (units unknown) (unknown) (unknown) (no date) (unknown) (unknown) 08/09/22 Range/Units (units unknown) (unknown) (unknown) (no date) (unknown) (unknown) 08/09/22 (units unknown) (unknown) (unknown) (no date) (unknown) (unknown) 1 tab PO BID (units unknown) (unknown) (unknown) (no date) (unknown) (unknown) 1,000 mg PO BID (units unknown) (unknown) (unknown) (no date) (unknown) (unknown) 1,000 unit PO DAILY (units unknown) (unknown) (unknown) (no date) (unknown) (unknown) 1.5 mg PO SEEINSTR Qty: 0 (units unknown) (unknown) (unknown) (no date) (unknown) (unknown) 10 mg PO BEDTIME (units unknown) (unknown) (unknown) (no date) (unknown) (unknown) 10 mg PO QDAY Qty: 0 (units unknown) (unknown) (unknown) (no date) (unknown) (unknown) 02/28/2017, 12:04. (units unknown) (unknown) (unknown) (no date) (unknown) (unknown) 100 mcg PO BID (units unknown) (unknown) (unknown) (no date) (unknown) (unknown) 11:55 08/09/22 (units unknown) (unknown) (unknown) (no date) (unknown) (unknown) 12:00 (units unknown) (unknown) (unknown) (no date) (unknown) (unknown) 12:05 12:05 12:05 (units unknown) (unknown) (unknown) (no date) (unknown) (unknown) 12:05 12:05 13:52 (units unknown) (unknown) (unknown) (no date) (unknown) (unknown) 12:30 08/09/22 (units unknown) (unknown) (unknown) (no date) (unknown) (unknown) 13:00 (units unknown) (unknown) (unknown) (no date) (unknown) (unknown) 13:30 08/09/22 (units unknown) (unknown) (unknown) (no date) (unknown) (unknown) 13:47 08/09/22 (units unknown) (unknown) (unknown) (no date) (unknown) (unknown) 13:47 (units unknown) (unknown) (unknown) (no date) (unknown) (unknown) 14:00 08/09/22 (units unknown) (unknown) (unknown) (no date) (unknown) (unknown) 14:30 08/09/22 (units unknown) (unknown) (unknown) (no date) (unknown) (unknown) 14:30 (units unknown) (unknown) (unknown) (no date) (unknown) (unknown) 15:00 08/09/22 (units unknown) (unknown) (unknown) (no date) (unknown) (unknown) 15:00 (units unknown) (unknown) (unknown) (no date) (unknown) (unknown) 15:02 (units unknown) (unknown) (unknown) (no date) (unknown) (unknown) 15:21 08/09/22 (units unknown) (unknown) (unknown) (no date) (unknown) (unknown) 15:30 08/09/22 (units unknown) (unknown) (unknown) (no date) (unknown) (unknown) 15:30 (units unknown) (unknown) (unknown) (no date) (unknown) (unknown) 16:00 (units unknown) (unknown) (unknown) (no date) (unknown) (unknown) 2 spray Intranasal BID Qty: 0 (units unknown) (unknown) (unknown) (no date) (unknown) (unknown) 2 tab PO DAILY (units unknown) (unknown) (unknown) (no date) (unknown) (unknown) 3 mg PO SEEINSTR (units unknown) (unknown) (unknown) (no date) (unknown) (unknown) 07/26/2018, 17:34. (units unknown) (unknown) (unknown) (no date) (unknown) (unknown) 324 mg PO DAILY (units unknown) (unknown) (unknown) (no date) (unknown) (unknown) 500 mg PO BID (units unknown) (unknown) (unknown) (no date) (unknown) (unknown) 75 mg PO DAILY (units unknown) (unknown) (unknown) (no date) (unknown) (unknown) ? (units unknown) (unknown) (unknown) (no date) (unknown) (unknown) A1 (units unknown) (unknown) (unknown) (no date) (unknown) (unknown) ABDOMEN: Soft, nontender. Normoactive bowel sounds all 4 quadrants. No (units unknown) (unknown) (unknown) (no date) (unknown) (unknown) ALT (<50) IU/L (units unknown) (unknown) (unknown) (no date) (unknown) (unknown) ALT 21 (<50) IU/L (units unknown) (unknown) (unknown) (no date) (unknown) (unknown) APTT (26-36) SECONDS (units unknown) (unknown) (unknown) (no date) (unknown) (unknown) APTT 40 H (26-36) SECONDS (units unknown) (unknown) (unknown) (no date) (unknown) (unknown) AST (17-59) IU/L (units unknown) (unknown) (unknown) (no date) (unknown) (unknown) AST 30 (17-59) IU/L (units unknown) (unknown) (unknown) (no date) (unknown) (unknown) Activity Restrictions/Additi onal Instructions: (units unknown) (unknown) (unknown) (no date) (unknown) (unknown) Additional findings:? (units unknown) (unknown) (unknown) (no date) (unknown) (unknown) Admin: 08/09/22 13:43 Dose: 150 mls/hr (units unknown) (unknown) (unknown) (no date) (unknown) (unknown) Age/Sex: 86 / M (units unknown) (unknown) (unknown) (no date) (unknown) (unknown) Albumin (3.5-5.0) g/dL (units unknown) (unknown) (unknown) (no date) (unknown) (unknown) Albumin 5.0 (3.5-5.0) g/dL (units unknown) (unknown) (unknown) (no date) (unknown) (unknown) Albumin/Globulin Ratio (1.0-2.8) (units unknown) (unknown) (unknown) (no date) (unknown) (unknown) Albumin/Globulin Ratio 1.3 (1.0-2.8) (units unknown) (unknown) (unknown) (no date) (unknown) (unknown) Alkaline Phosphatase (38-126) U/L (units unknown) (unknown) (unknown) (no date) (unknown) (unknown) Alkaline Phosphatase 83 (38-126) U/L (units unknown) (unknown) (unknown) (no date) (unknown) (unknown) Allergies (units unknown) (unknown) (unknown) (no date) (unknown) (unknown) Allergy/AdvReac Type Severity Reaction Status Date / Time (units unknown) (unknown) (unknown) (no date) (unknown) (unknown) Anterior circulation:? Intracranial internal carotid arteries are normal in size (units unknown) (unknown) (unknown) (no date) (unknown) (unknown) Any quantitative measurements of stenosis were performed using NASCET criteria.? (units unknown) (unknown) (unknown) (no date) (unknown) (unknown) Approved by: Rian Rogers M.D. on 08/09/2022 at 12:30 ? (units unknown) (unknown) (unknown) (no date) (unknown) (unknown) Atrial fibrillation rate 78 ST depression and T-wave inversion noted in lead 3 (units unknown) (unknown) (unknown) (no date) (unknown) (unknown) Atrial fibrillation (units unknown) (unknown) (unknown) (no date) (unknown) (unknown) BRAIN:? (units unknown) (unknown) (unknown) (no date) (unknown) (unknown) BUN (9-20) mg/dL (units unknown) (unknown) (unknown) (no date) (unknown) (unknown) BUN 29 H (9-20) mg/dL (units unknown) (unknown) (unknown) (no date) (unknown) (unknown) BUN/Creatinine Ratio (6-22) (units unknown) (unknown) (unknown) (no date) (unknown) (unknown) BUN/Creatinine Ratio 23.6 H (6-22) (units unknown) (unknown) (unknown) (no date) (unknown) (unknown) Baso # (Auto) (0-100) /uL (units unknown) (unknown) (unknown) (no date) (unknown) (unknown) Baso # (Auto) 100 (0-100) /uL (units unknown) (unknown) (unknown) (no date) (unknown) (unknown) Baso % (Auto) (0-2) % (units unknown) (unknown) (unknown) (no date) (unknown) (unknown) Baso % (Auto) 0.9 (0-2) % (units unknown) (unknown) (unknown) (no date) (unknown) (unknown) Blood Culture Stat (units unknown) (unknown) (unknown) (no date) (unknown) (unknown) Blood Pressure 113/71 (units unknown) (unknown) (unknown) (no date) (unknown) (unknown) Blood Pressure 121/68 (units unknown) (unknown) (unknown) (no date) (unknown) (unknown) Blood Pressure 123/67 124/87 (units unknown) (unknown) (unknown) (no date) (unknown) (unknown) Blood Pressure 136/80 (units unknown) (unknown) (unknown) (no date) (unknown) (unknown) Blood Pressure 139/74 08/09/22 11:55 (units unknown) (unknown) (unknown) (no date) (unknown) (unknown) Blood Pressure 139/74 (units unknown) (unknown) (unknown) (no date) (unknown) (unknown) Blood Pressure 175/77 H 134/72 (units unknown) (unknown) (unknown) (no date) (unknown) (unknown) Blood Pressure (units unknown) (unknown) (unknown) (no date) (unknown) (unknown) Bones and chest wall:? No suspicious bony lesions.? Right shoulder DJD.? (units unknown) (unknown) (unknown) (no date) (unknown) (unknown) Bones:? No suspicious bony lesions.? Visualized cervical spine appears normally (units unknown) (unknown) (unknown) (no date) (unknown) (unknown) Brain:? No midline shift.? No intracranial bleeds or masses.? Ortiz-white matter (units unknown) (unknown) (unknown) (no date) (unknown) (unknown) CARDIOVASCULAR: Regular rate and rhythm without murmurs, rubs or gallops. (units unknown) (unknown) (unknown) (no date) (unknown) (unknown) CK-MB (CK-2) (<2.37) ng/mL (units unknown) (unknown) (unknown) (no date) (unknown) (unknown) CK-MB (CK-2) 1.33 (<2.37) ng/mL (units unknown) (unknown) (unknown) (no date) (unknown) (unknown) CK-MB (CK-2) Rel Index (1.5-5.0) % (units unknown) (unknown) (unknown) (no date) (unknown) (unknown) CK-MB (CK-2) Rel Index 1.2 L (1.5-5.0) % (units unknown) (unknown) (unknown) (no date) (unknown) (unknown) COMPARISON:[facility], CT, CT ANGIO HEAD AND NECK, 08/09/2022, 12:47.? (units unknown) (unknown) (unknown) (no date) (unknown) (unknown) COMPARISON:? [facility], MR, STROKE PROTOCOL A, 01/02/2010, 19:35.? [place] (units unknown) (unknown) (unknown) (no date) (unknown) (unknown) CSF spaces:? Ventricles are normal in size and shape.? Basal cisterns are (units unknown) (unknown) (unknown) (no date) (unknown) (unknown) CT angio head and neck Stat (units unknown) (unknown) (unknown) (no date) (unknown) (unknown) CT, CT HEAD/BRAIN WO CON, 07/16/2018, 18:37.? [facility], CT, CT HEAD/BRAIN (units unknown) (unknown) (unknown) (no date) (unknown) (unknown) CTA - brain/neck: (units unknown) (unknown) (unknown) (no date) (unknown) (unknown) Calcium (8.4-10.2) mg/dL (units unknown) (unknown) (unknown) (no date) (unknown) (unknown) Calcium 9.9 (8.4-10.2) mg/dL (units unknown) (unknown) (unknown) (no date) (unknown) (unknown) Carbon Dioxide (22-32) mmol/L (units unknown) (unknown) (unknown) (no date) (unknown) (unknown) Carbon Dioxide 27 (22-32) mmol/L (units unknown) (unknown) (unknown) (no date) (unknown) (unknown) Carotid system:? Atherosclerotic calcification is noted.? The great vessels (units unknown) (unknown) (unknown) (no date) (unknown) (unknown) Chest x-ray: (units unknown) (unknown) (unknown) (no date) (unknown) (unknown) Chief Complaint: Neuro Symptoms/Deficit (units unknown) (unknown) (unknown) (no date) (unknown) (unknown) Chloride (98-107) mmol/L (units unknown) (unknown) (unknown) (no date) (unknown) (unknown) Chloride 99 (98-107) mmol/L (units unknown) (unknown) (unknown) (no date) (unknown) (unknown) Pulnbp-aw-Rqjvjd developmental anomalies (units unknown) (unknown) (unknown) (no date) (unknown) (unknown) Clinical Impression: (units unknown) (unknown) (unknown) (no date) (unknown) (unknown) Complete Blood Count AUTO DIFF Stat (units unknown) (unknown) (unknown) (no date) (unknown) (unknown) Comprehensive Metabolic Panel Stat (units unknown) (unknown) (unknown) (no date) (unknown) (unknown) Course (units unknown) (unknown) (unknown) (no date) (unknown) (unknown) Creatinine (0.66-1.25) mg/dL (units unknown) (unknown) (unknown) (no date) (unknown) (unknown) Creatinine 1.23 (0.66-1.25) mg/dL (units unknown) (unknown) (unknown) (no date) (unknown) (unknown) D3 10 mcg (400 unit) tablet (units unknown) (unknown) (unknown) (no date) (unknown) (unknown) D3) (units unknown) (unknown) (unknown) (no date) (unknown) (unknown) : 1935 Acct:[id number] (units unknown) (unknown) (unknown) (no date) (unknown) (unknown) Date of Service: 08/09/22 (units unknown) (unknown) (unknown) (no date) (unknown) (unknown) Dementia (units unknown) (unknown) (unknown) (no date) (unknown) (unknown) Departure (units unknown) (unknown) (unknown) (no date) (unknown) (unknown) Dictated by: Rian Rogers M.D. on 08/09/2022 at 12:25 ? ? (units unknown) (unknown) (unknown) (no date) (unknown) (unknown) Dictated by: Andrzej Gonzales M.D. on 08/09/2022 at 13:59 ? ? (units unknown) (unknown) (unknown) (no date) (unknown) (unknown) Discharge Plan (units unknown) (unknown) (unknown) (no date) (unknown) (unknown) Discontinued Medications (units unknown) (unknown) (unknown) (no date) (unknown) (unknown) Documented By: SPF (units unknown) (unknown) (unknown) (no date) (unknown) (unknown) ECG Data (units unknown) (unknown) (unknown) (no date) (unknown) (unknown) ED Orders (units unknown) (unknown) (unknown) (no date) (unknown) (unknown) EKG-12 Lead Stat (units unknown) (unknown) (unknown) (no date) (unknown) (unknown) ER Physician: Eulalia Hilliard D.O. (units unknown) (unknown) (unknown) (no date) (unknown) (unknown) EXTREMITIES: Normal range of motion, no clubbing or edema. Neurovascularly (units unknown) (unknown) (unknown) (no date) (unknown) (unknown) Emergency Report (units unknown) (unknown) (unknown) (no date) (unknown) (unknown) Eos # (Auto) (0-450) /uL (units unknown) (unknown) (unknown) (no date) (unknown) (unknown) Eos # (Auto) 400 (0-450) /uL (units unknown) (unknown) (unknown) (no date) (unknown) (unknown) Eos % (Auto) (2-4) % (units unknown) (unknown) (unknown) (no date) (unknown) (unknown) Eos % (Auto) 6.5 H (2-4) % (units unknown) (unknown) (unknown) (no date) (unknown) (unknown) Estimated GFR (>60) mL/min (units unknown) (unknown) (unknown) (no date) (unknown) (unknown) Estimated GFR 57 L (>60) mL/min (units unknown) (unknown) (unknown) (no date) (unknown) (unknown) Exam (units unknown) (unknown) (unknown) (no date) (unknown) (unknown) Extensive cervical spine postoperative and degenerative change.? (units unknown) (unknown) (unknown) (no date) (unknown) (unknown) Extensive postoperative and degenerative changes can be seen of the cervical (units unknown) (unknown) (unknown) (no date) (unknown) (unknown) FINDINGS:? (units unknown) (unknown) (unknown) (no date) (unknown) (unknown) GENERAL: Alert pleasantly confused 86-year-old male and in no acute distress. (units unknown) (unknown) (unknown) (no date) (unknown) (unknown) General (units unknown) (unknown) (unknown) (no date) (unknown) (unknown) Globulin (1.7-4.1) g/dL (units unknown) (unknown) (unknown) (no date) (unknown) (unknown) Globulin 4.0 (1.7-4.1) g/dL (units unknown) (unknown) (unknown) (no date) (unknown) (unknown) Glucose (80-110) mg/dL (units unknown) (unknown) (unknown) (no date) (unknown) (unknown) Glucose 145 H (80-110) mg/dL (units unknown) (unknown) (unknown) (no date) (unknown) (unknown) HEAD CT ANGIOGRAPHY:? (units unknown) (unknown) (unknown) (no date) (unknown) (unknown) HEENT: Head atraumatic,EOMI, pupils reactive, face symmetric, moist mucous (units unknown) (unknown) (unknown) (no date) (unknown) (unknown) HPI - Neuro Symptoms/Deficit (units unknown) (unknown) (unknown) (no date) (unknown) (unknown) HPI Narrative: (units unknown) (unknown) (unknown) (no date) (unknown) (unknown) Hct (41-53) % (units unknown) (unknown) (unknown) (no date) (unknown) (unknown) Hct 38.7 L (41-53) % (units unknown) (unknown) (unknown) (no date) (unknown) (unknown) He is able to follow commands but is confused. No abdominal pain no nausea or (units unknown) (unknown) (unknown) (no date) (unknown) (unknown) Hematologic/Lymphat ic (units unknown) (unknown) (unknown) (no date) (unknown) (unknown) Hgb (13.5-17.5) g/dL (units unknown) (unknown) (unknown) (no date) (unknown) (unknown) Hgb 13.0 L (13.5-17.5) g/dL (units unknown) (unknown) (unknown) (no date) (unknown) (unknown) History of Present Illness (units unknown) (unknown) (unknown) (no date) (unknown) (unknown) Home Medications (units unknown) (unknown) (unknown) (no date) (unknown) (unknown) Hospital, CR, XR CHEST 2V, 02/10/2020, 12:59.? [facility], CR, CHEST 1 VIEW, (units unknown) (unknown) (unknown) (no date) (unknown) (unknown) Hospital, (units unknown) (unknown) (unknown) (no date) (unknown) (unknown) Hyperglycemia (units unknown) (unknown) (unknown) (no date) (unknown) (unknown) Hypertension (units unknown) (unknown) (unknown) (no date) (unknown) (unknown) IMPRESSION:? (units unknown) (unknown) (unknown) (no date) (unknown) (unknown) INDICATIONS:? chest pain (units unknown) (unknown) (unknown) (no date) (unknown) (unknown) INDICATIONS:? confusion since last night (units unknown) (unknown) (unknown) (no date) (unknown) (unknown) INR (0.9-1.3) (units unknown) (unknown) (unknown) (no date) (unknown) (unknown) INR 1.8 H (0.9-1.3) (units unknown) (unknown) (unknown) (no date) (unknown) (unknown) Image quality:? Mild streak artifact can be seen through the skull base. (units unknown) (unknown) (unknown) (no date) (unknown) (unknown) Imaging Data (units unknown) (unknown) (unknown) (no date) (unknown) (unknown) Initial Vital Signs (units unknown) (unknown) (unknown) (no date) (unknown) (unknown) Initial Vital Signs: (units unknown) (unknown) (unknown) (no date) (unknown) (unknown) Instructions: Dementia (units unknown) (unknown) (unknown) (no date) (unknown) (unknown) Interpretation: (units unknown) (unknown) (unknown) (no date) (unknown) (unknown) [address] [address] (units unknown) (unknown) (unknown) (no date) (unknown) (unknown) [place] (units unknown) (unknown) (unknown) (no date) (unknown) (unknown) Lab Data (units unknown) (unknown) (unknown) (no date) (unknown) (unknown) Lab Results (units unknown) (unknown) (unknown) (no date) (unknown) (unknown) Labs: (units unknown) (unknown) (unknown) (no date) (unknown) (unknown) Lactate (0.7-2.1) mmol/L (units unknown) (unknown) (unknown) (no date) (unknown) (unknown) Lactate (Lactic Acid) Stat (units unknown) (unknown) (unknown) (no date) (unknown) (unknown) Lactate 1.5 (0.7-2.1) mmol/L (units unknown) (unknown) (unknown) (no date) (unknown) (unknown) Lactate 2.6 H (0.7-2.1) mmol/L (units unknown) (unknown) (unknown) (no date) (unknown) (unknown) Last Infusion: 08/09/22 16:00 Dose: 0 mls/hr (units unknown) (unknown) (unknown) (no date) (unknown) (unknown) Lipase (23-300) U/L (units unknown) (unknown) (unknown) (no date) (unknown) (unknown) Lipase 379 H (23-300) U/L (units unknown) (unknown) (unknown) (no date) (unknown) (unknown) Lipase Stat (units unknown) (unknown) (unknown) (no date) (unknown) (unknown) Lungs and pleura:? Lungs are clear.? No pleural effusions or pneumothorax.? (units unknown) (unknown) (unknown) (no date) (unknown) (unknown) Lymph # (Auto) (1451-9942) /uL (units unknown) (unknown) (unknown) (no date) (unknown) (unknown) Lymph # (Auto) 1000 L (7177-3467) /uL (units unknown) (unknown) (unknown) (no date) (unknown) (unknown) Lymph % (Auto) (25-40) % (units unknown) (unknown) (unknown) (no date) (unknown) (unknown) Lymph % (Auto) 17.8 L (25-40) % (units unknown) (unknown) (unknown) (no date) (unknown) (unknown) MCH (26-34) PG (units unknown) (unknown) (unknown) (no date) (unknown) (unknown) MCH 32.7 (26-34) PG (units unknown) (unknown) (unknown) (no date) (unknown) (unknown) MCHC (30-36) % (units unknown) (unknown) (unknown) (no date) (unknown) (unknown) MCHC 33.7 (30-36) % (units unknown) (unknown) (unknown) (no date) (unknown) (unknown) MCV (80-100) fL (units unknown) (unknown) (unknown) (no date) (unknown) (unknown) MCV 97.0 (80-100) fL (units unknown) (unknown) (unknown) (no date) (unknown) (unknown) MDM - Neuro Symptoms/Deficit (units unknown) (unknown) (unknown) (no date) (unknown) (unknown) MDM Narrative (units unknown) (unknown) (unknown) (no date) (unknown) (unknown) Mediastinum:? Mediastinal contours appear unchanged.? Heart size is normal.? (units unknown) (unknown) (unknown) (no date) (unknown) (unknown) Medical History (Updated 08/09/22 @ 15:38 by Eulalia Hilliard DO) (units unknown) (unknown) (unknown) (no date) (unknown) (unknown) Medical decision making narrative: (units unknown) (unknown) (unknown) (no date) (unknown) (unknown) Medication Instructions Recorded Confirmed (units unknown) (unknown) (unknown) (no date) (unknown) (unknown) Migraines (units unknown) (unknown) (unknown) (no date) (unknown) (unknown) Mode of arrival: Ambulatory (units unknown) (unknown) (unknown) (no date) (unknown) (unknown) [place] # (Auto) (0-900) /uL (units unknown) (unknown) (unknown) (no date) (unknown) (unknown) [place] # (Auto) 500 (0-900) /uL (units unknown) (unknown) (unknown) (no date) (unknown) (unknown) [place] % (Auto) (3-14) % (units unknown) (unknown) (unknown) (no date) (unknown) (unknown) [place] % (Auto) 9.1 (3-14) % (units unknown) (unknown) (unknown) (no date) (unknown) (unknown) [facility] 750 mg-100 mg- 1.65 mg-108 mg Tablet (units unknown) (unknown) (unknown) (no date) (unknown) (unknown) NECK CT ANGIOGRAPHY:? (units unknown) (unknown) (unknown) (no date) (unknown) (unknown) NEUROLOGICAL: Alert and oriented x1.Normal gait and speech. Cranial nerves II (units unknown) (unknown) (unknown) (no date) (unknown) (unknown) Neut # (Auto) (8360-1471) /uL (units unknown) (unknown) (unknown) (no date) (unknown) (unknown) Neut # (Auto) 3800 (1156-3459) /uL (units unknown) (unknown) (unknown) (no date) (unknown) (unknown) Neut % (Auto) (50-75) % (units unknown) (unknown) (unknown) (no date) (unknown) (unknown) Neut % (Auto) 65.7 (50-75) % (units unknown) (unknown) (unknown) (no date) (unknown) (unknown) No Action (units unknown) (unknown) (unknown) (no date) (unknown) (unknown) No acute cardiopulmonary abnormality. (units unknown) (unknown) (unknown) (no date) (unknown) (unknown) No acute intracranial process is seen.? (units unknown) (unknown) (unknown) (no date) (unknown) (unknown) No significant intracranial arterial abnormality is seen.? (units unknown) (unknown) (unknown) (no date) (unknown) (unknown) On Anticoagulants: Yes (units unknown) (unknown) (unknown) (no date) (unknown) (unknown) Orbits appear normal.? (units unknown) (unknown) (unknown) (no date) (unknown) (unknown) Ordered: (units unknown) (unknown) (unknown) (no date) (unknown) (unknown) Orders (units unknown) (unknown) (unknown) (no date) (unknown) (unknown) Overlying soft (units unknown) (unknown) (unknown) (no date) (unknown) (unknown) Oxygen Delivery Method Room Air 08/09/22 11:55 (units unknown) (unknown) (unknown) (no date) (unknown) (unknown) Oxygen Delivery Method Room Air (units unknown) (unknown) (unknown) (no date) (unknown) (unknown) Oxygen Delivery Method (units unknown) (unknown) (unknown) (no date) (unknown) (unknown) PROCEDURE:? CT ANGIO HEAD AND NECK (units unknown) (unknown) (unknown) (no date) (unknown) (unknown) PROCEDURE:? XR CHEST 1V (units unknown) (unknown) (unknown) (no date) (unknown) (unknown) PT (10.1-12.7) SECONDS (units unknown) (unknown) (unknown) (no date) (unknown) (unknown) PT 21.0 H (10.1-12.7) SECONDS (units unknown) (unknown) (unknown) (no date) (unknown) (unknown) PTT Partial Thromboplastin [place] Stat (units unknown) (unknown) (unknown) (no date) (unknown) (unknown) Pacemaker (units unknown) (unknown) (unknown) (no date) (unknown) (unknown) Patient 86-year-old male history of atrial fibrillation on warfarin, presents (units unknown) (unknown) (unknown) (no date) (unknown) (unknown) Patient 86-year-old male who actually does have some cognitive deficits (units unknown) (unknown) (unknown) (no date) (unknown) (unknown) Patient Comments: (units unknown) (unknown) (unknown) (no date) (unknown) (unknown) Patient Disposition: Home (units unknown) (unknown) (unknown) (no date) (unknown) (unknown) Patient History (units unknown) (unknown) (unknown) (no date) (unknown) (unknown) Patient: Mando Gomez MR#: [id number] (units unknown) (unknown) (unknown) (no date) (unknown) (unknown) Plt Count (150-400) X103/uL (units unknown) (unknown) (unknown) (no date) (unknown) (unknown) Plt Count 169 (150-400) X103/uL (units unknown) (unknown) (unknown) (no date) (unknown) (unknown) Posterior circulation:? The origins of the vertebral arteries both appear widely (units unknown) (unknown) (unknown) (no date) (unknown) (unknown) Posterior circulation:? The right V4 segment is within normal limits.? The left (units unknown) (unknown) (unknown) (no date) (unknown) (unknown) Potassium (3.4-5.1) mmol/L (units unknown) (unknown) (unknown) (no date) (unknown) (unknown) Potassium 4.7 (3.4-5.1) mmol/L (units unknown) (unknown) (unknown) (no date) (unknown) (unknown) Pre-contrast 4.5 mm thick sections acquired from the foramen magnum to the (units unknown) (unknown) (unknown) (no date) (unknown) (unknown) Prescriptions: (units unknown) (unknown) (unknown) (no date) (unknown) (unknown) Procalcitonin (<0.5) ng/mL (units unknown) (unknown) (unknown) (no date) (unknown) (unknown) Procalcitonin 0.04 (<0.5) ng/mL (units unknown) (unknown) (unknown) (no date) (unknown) (unknown) Procalcitonin Stat (units unknown) (unknown) (unknown) (no date) (unknown) (unknown) Prothrombin Time INR Stat (units unknown) (unknown) (unknown) (no date) (unknown) (unknown) Pulse Oximetry 100 100 (units unknown) (unknown) (unknown) (no date) (unknown) (unknown) Pulse Oximetry 100 99 (units unknown) (unknown) (unknown) (no date) (unknown) (unknown) Pulse Oximetry 100 (units unknown) (unknown) (unknown) (no date) (unknown) (unknown) Pulse Oximetry 98 08/09/22 11:55 (units unknown) (unknown) (unknown) (no date) (unknown) (unknown) Pulse Oximetry 98 100 (units unknown) (unknown) (unknown) (no date) (unknown) (unknown) Pulse Oximetry 98 99 99 (units unknown) (unknown) (unknown) (no date) (unknown) (unknown) Pulse Oximetry 98 (units unknown) (unknown) (unknown) (no date) (unknown) (unknown) Pulse Oximetry (units unknown) (unknown) (unknown) (no date) (unknown) (unknown) Pulse Rate 69 64 (units unknown) (unknown) (unknown) (no date) (unknown) (unknown) Pulse Rate 70 (units unknown) (unknown) (unknown) (no date) (unknown) (unknown) Pulse Rate 72 68 (units unknown) (unknown) (unknown) (no date) (unknown) (unknown) Pulse Rate 73 77 (units unknown) (unknown) (unknown) (no date) (unknown) (unknown) Pulse Rate 78 79 (units unknown) (unknown) (unknown) (no date) (unknown) (unknown) Pulse Rate 80 08/09/22 11:55 (units unknown) (unknown) (unknown) (no date) (unknown) (unknown) Pulse Rate 80 78 82 (units unknown) (unknown) (unknown) (no date) (unknown) (unknown) Pulse Rate 93 H (units unknown) (unknown) (unknown) (no date) (unknown) (unknown) RBC (4.5-5.9) X106/uL (units unknown) (unknown) (unknown) (no date) (unknown) (unknown) RBC 3.98 L (4.5-5.9) X106/uL (units unknown) (unknown) (unknown) (no date) (unknown) (unknown) RDW (11.6-14.8) % (units unknown) (unknown) (unknown) (no date) (unknown) (unknown) RDW 14.4 (11.6-14.8) % (units unknown) (unknown) (unknown) (no date) (unknown) (unknown) RESPIRATORY: Breath sounds equal bilaterally, no wheezes rales or rhonchi. (units unknown) (unknown) (unknown) (no date) (unknown) (unknown) ROS Unobtainable: All systems reviewed + are unremarkable except as noted in HPI (units unknown) (unknown) (unknown) (no date) (unknown) (unknown) Radiologist's Impression: (units unknown) (unknown) (unknown) (no date) (unknown) (unknown) Referrals: (units unknown) (unknown) (unknown) (no date) (unknown) (unknown) Related Data (units unknown) (unknown) (unknown) (no date) (unknown) (unknown) Relief) (units unknown) (unknown) (unknown) (no date) (unknown) (unknown) Respiratory Rate 15 19 (units unknown) (unknown) (unknown) (no date) (unknown) (unknown) Respiratory Rate 15 (units unknown) (unknown) (unknown) (no date) (unknown) (unknown) Respiratory Rate 16 08/09/22 11:55 (units unknown) (unknown) (unknown) (no date) (unknown) (unknown) Respiratory Rate 16 18 18 (units unknown) (unknown) (unknown) (no date) (unknown) (unknown) Respiratory Rate 17 15 (units unknown) (unknown) (unknown) (no date) (unknown) (unknown) Respiratory Rate 17 17 (units unknown) (unknown) (unknown) (no date) (unknown) (unknown) Respiratory Rate 22 (units unknown) (unknown) (unknown) (no date) (unknown) (unknown) Respiratory Rate 23 16 (units unknown) (unknown) (unknown) (no date) (unknown) (unknown) Review of Systems (units unknown) (unknown) (unknown) (no date) (unknown) (unknown) Rx Instructions: (units unknown) (unknown) (unknown) (no date) (unknown) (unknown) SKIN: Warm, dry, no laceration, no petechiae, no rashes or lesions. (units unknown) (unknown) (unknown) (no date) (unknown) (unknown) SWELLING (units unknown) (unknown) (unknown) (no date) (unknown) (unknown) Signed By: (units unknown) (unknown) (unknown) (no date) (unknown) (unknown) Sinuses:? Sinuses and mastoids are clear.? (units unknown) (unknown) (unknown) (no date) (unknown) (unknown) Skull and face:? Calvarium and facial bones appear intact, without suspicious (units unknown) (unknown) (unknown) (no date) (unknown) (unknown) Smoking Status: Never smoker (units unknown) (unknown) (unknown) (no date) (unknown) (unknown) Social History (units unknown) (unknown) (unknown) (no date) (unknown) (unknown) Sodium (137-145) mmol/L (units unknown) (unknown) (unknown) (no date) (unknown) (unknown) Sodium 137 (137-145) mmol/L (units unknown) (unknown) (unknown) (no date) (unknown) (unknown) Sodium Chloride (Normal Saline 0.9%) 1,000 mls @ 150 mls/hr IV CONT PREET (units unknown) (unknown) (unknown) (no date) (unknown) (unknown) Soft tissues:? Visualized neck soft tissues demonstrate no suspicious (units unknown) (unknown) (unknown) (no date) (unknown) (unknown) Source: family (units unknown) (unknown) (unknown) (no date) (unknown) (unknown) Stand Alone Forms: Patient Portal/API (units unknown) (unknown) (unknown) (no date) (unknown) (unknown) Stated Complaint: sent by DR naik he had a stroke (units unknown) (unknown) (unknown) (no date) (unknown) (unknown) Substance Use Type: does not use (units unknown) (unknown) (unknown) (no date) (unknown) (unknown) Surgical changes and devices:? Cervical spine hardware.? Left pacemaker with (units unknown) (unknown) (unknown) (no date) (unknown) (unknown) Clari Pacheco MD [Primary Care Provider] (units unknown) (unknown) (unknown) (no date) (unknown) (unknown) TECHNIQUE:? One view of the chest was acquired.? (units unknown) (unknown) (unknown) (no date) (unknown) (unknown) TECHNIQUE:? (units unknown) (unknown) (unknown) (no date) (unknown) (unknown) Tablet (units unknown) (unknown) (unknown) (no date) (unknown) (unknown) Takes 1.5 mg on Tuesdays and Saturdays (units unknown) (unknown) (unknown) (no date) (unknown) (unknown) Takes 3 mg on Saturday, Saturday, , Saturday and Saturday (units unknown) (unknown) (unknown) (no date) (unknown) (unknown) Temperature 97.6 F 08/09/22 11:55 (units unknown) (unknown) (unknown) (no date) (unknown) (unknown) Temperature 97.6 F (units unknown) (unknown) (unknown) (no date) (unknown) (unknown) Temperature (units unknown) (unknown) (unknown) (no date) (unknown) (unknown) The more superior extracranial portions of both vertebral arteries also (units unknown) (unknown) (unknown) (no date) (unknown) (unknown) There is a (units unknown) (unknown) (unknown) (no date) (unknown) (unknown) Time Seen by Provider: 08/09/22 12:07 (units unknown) (unknown) (unknown) (no date) (unknown) (unknown) Total Bilirubin (0.2-1.3) mg/dL (units unknown) (unknown) (unknown) (no date) (unknown) (unknown) Total Bilirubin 1.0 (0.2-1.3) mg/dL (units unknown) (unknown) (unknown) (no date) (unknown) (unknown) Total Creatine Kinase (55-170) U/L (units unknown) (unknown) (unknown) (no date) (unknown) (unknown) Total Creatine Kinase 112 (55-170) U/L (units unknown) (unknown) (unknown) (no date) (unknown) (unknown) Total Protein (6.3-8.2) g/dL (units unknown) (unknown) (unknown) (no date) (unknown) (unknown) Total Protein 9.0 H (6.3-8.2) g/dL (units unknown) (unknown) (unknown) (no date) (unknown) (unknown) Troponin + CK Cardiac Panel Stat (units unknown) (unknown) (unknown) (no date) (unknown) (unknown) Troponin I < 0.012 (0.01-0.034) ng/mL (units unknown) (unknown) (unknown) (no date) (unknown) (unknown) Troponin I (0.01-0.034) ng/mL (units unknown) (unknown) (unknown) (no date) (unknown) (unknown) Ur Culture Indicated? Cult not indicated (units unknown) (unknown) (unknown) (no date) (unknown) (unknown) Ur Culture Indicated? (units unknown) (unknown) (unknown) (no date) (unknown) (unknown) Ur Leukocyte Esterase (NEGATIVE) (units unknown) (unknown) (unknown) (no date) (unknown) (unknown) Ur Leukocyte Esterase Negative (NEGATIVE) (units unknown) (unknown) (unknown) (no date) (unknown) (unknown) Ur Specific [place] <=1.005 (1.000-1.035) (units unknown) (unknown) (unknown) (no date) (unknown) (unknown) Ur Specific [place] (1.000-1.035) (units unknown) (unknown) (unknown) (no date) (unknown) (unknown) Urinalysis and Microscopic Stat (units unknown) (unknown) (unknown) (no date) (unknown) (unknown) Urine Appearance Clear (units unknown) (unknown) (unknown) (no date) (unknown) (unknown) Urine Appearance (units unknown) (unknown) (unknown) (no date) (unknown) (unknown) Urine Bacteria (None) (units unknown) (unknown) (unknown) (no date) (unknown) (unknown) Urine Bacteria None seen (None) (units unknown) (unknown) (unknown) (no date) (unknown) (unknown) Urine Bilirubin (NEGATIVE) (units unknown) (unknown) (unknown) (no date) (unknown) (unknown) Urine Bilirubin Negative (NEGATIVE) (units unknown) (unknown) (unknown) (no date) (unknown) (unknown) Urine Color Yellow (units unknown) (unknown) (unknown) (no date) (unknown) (unknown) Urine Color (units unknown) (unknown) (unknown) (no date) (unknown) (unknown) Urine Glucose (UA) (Negative) g/dL (units unknown) (unknown) (unknown) (no date) (unknown) (unknown) Urine Glucose (UA) Negative (Negative) g/dL (units unknown) (unknown) (unknown) (no date) (unknown) (unknown) Urine Ketones (NEGATIVE) (units unknown) (unknown) (unknown) (no date) (unknown) (unknown) Urine Ketones Negative (NEGATIVE) (units unknown) (unknown) (unknown) (no date) (unknown) (unknown) Urine Nitrate (Negative) (units unknown) (unknown) (unknown) (no date) (unknown) (unknown) Urine Nitrate Negative (Negative) (units unknown) (unknown) (unknown) (no date) (unknown) (unknown) Urine Occult Blood (Negative) (units unknown) (unknown) (unknown) (no date) (unknown) (unknown) Urine Occult Blood Negative (Negative) (units unknown) (unknown) (unknown) (no date) (unknown) (unknown) Urine Protein (Negative) (units unknown) (unknown) (unknown) (no date) (unknown) (unknown) Urine Protein Negative (Negative) (units unknown) (unknown) (unknown) (no date) (unknown) (unknown) Urine RBC (0-5/HPF) (units unknown) (unknown) (unknown) (no date) (unknown) (unknown) Urine RBC None seen (0-5/HPF) (units unknown) (unknown) (unknown) (no date) (unknown) (unknown) Urine Urobilinogen (0.2) E.U./dL (units unknown) (unknown) (unknown) (no date) (unknown) (unknown) Urine Urobilinogen 0.2 (0.2) E.U./dL (units unknown) (unknown) (unknown) (no date) (unknown) (unknown) Urine WBC (0-5/HPF) (units unknown) (unknown) (unknown) (no date) (unknown) (unknown) Urine WBC None seen (0-5/HPF) (units unknown) (unknown) (unknown) (no date) (unknown) (unknown) Urine pH (4.5-8.0) (units unknown) (unknown) (unknown) (no date) (unknown) (unknown) Urine pH 6.0 (4.5-8.0) (units unknown) (unknown) (unknown) (no date) (unknown) (unknown) V4 (units unknown) (unknown) (unknown) (no date) (unknown) (unknown) Vital Signs - 8 hr (units unknown) (unknown) (unknown) (no date) (unknown) (unknown) Vital Signs (units unknown) (unknown) (unknown) (no date) (unknown) (unknown) Vital signs: (units unknown) (unknown) (unknown) (no date) (unknown) (unknown) WBC (4.5-11.0) X103/uL (units unknown) (unknown) (unknown) (no date) (unknown) (unknown) WBC 5.8 (4.5-11.0) X103/uL (units unknown) (unknown) (unknown) (no date) (unknown) (unknown) WO CON, (units unknown) (unknown) (unknown) (no date) (unknown) (unknown) [place], of typically no clinical consequence.? The flow within the paired (units unknown) (unknown) (unknown) (no date) (unknown) (unknown) Within the arteries of the neck, no hemodynamically significant stenosis can be (units unknown) (unknown) (unknown) (no date) (unknown) (unknown) XR chest 1V Stat (units unknown) (unknown) (unknown) (no date) (unknown) (unknown) [Embedded Image Not Available] (units unknown) (unknown) (unknown) (no date) (unknown) (unknown) abnormalities.? A (units unknown) (unknown) (unknown) (no date) (unknown) (unknown) acquired (units unknown) (unknown) (unknown) (no date) (unknown) (unknown) alcohol intake frequency: 0-2 drinks per day (units unknown) (unknown) (unknown) (no date) (unknown) (unknown) alfuzosin 10 mg tablet,extended 10 mg PO QDAY ##0 02/28/17 05/09/19 (units unknown) (unknown) (unknown) (no date) (unknown) (unknown) alfuzosin [Uroxatral] 10 MG tablet extended release 24 hr (units unknown) (unknown) (unknown) (no date) (unknown) (unknown) aligned.? (units unknown) (unknown) (unknown) (no date) (unknown) (unknown) amiodarone [AMIODARONE] Allergy Severe FACIAL Verified 05/08/19 17:47 (units unknown) (unknown) (unknown) (no date) (unknown) (unknown) and below (units unknown) (unknown) (unknown) (no date) (unknown) (unknown) and courses.? The bifurcation regions demonstrate generalized atherosclerotic (units unknown) (unknown) (unknown) (no date) (unknown) (unknown) and neck separately. For radiation dose reduction, the following was used:? (units unknown) (unknown) (unknown) (no date) (unknown) (unknown) and right ventricular leads. (units unknown) (unknown) (unknown) (no date) (unknown) (unknown) and symmetric.? No aneurysms are seen.? (units unknown) (unknown) (unknown) (no date) (unknown) (unknown) and (units unknown) (unknown) (unknown) (no date) (unknown) (unknown) and/or volume rendering reformats were acquired of the central intracranial (units unknown) (unknown) (unknown) (no date) (unknown) (unknown) anterior (units unknown) (unknown) (unknown) (no date) (unknown) (unknown) appears intact.? (units unknown) (unknown) (unknown) (no date) (unknown) (unknown) arch through the [place] of [place].? Post-contrast 4.5 mm thick sections then re (units unknown) (unknown) (unknown) (no date) (unknown) (unknown) arteries is normal and symmetric, with note made of focal atherosclerotic (units unknown) (unknown) (unknown) (no date) (unknown) (unknown) artery is (units unknown) (unknown) (unknown) (no date) (unknown) (unknown) atorvastatin 10 mg Tablet (units unknown) (unknown) (unknown) (no date) (unknown) (unknown) atorvastatin 10 mg tablet 10 mg PO BEDTIME 05/09/19 05/09/19 (units unknown) (unknown) (unknown) (no date) (unknown) (unknown) automated (units unknown) (unknown) (unknown) (no date) (unknown) (unknown) bilaterally, no visual changes, no facial droop (units unknown) (unknown) (unknown) (no date) (unknown) (unknown) calcification (units unknown) (unknown) (unknown) (no date) (unknown) (unknown) calcium carbonate 500 mg-vitamin 1 tab PO BID 05/09/19 05/09/19 (units unknown) (unknown) (unknown) (no date) (unknown) (unknown) calcium carbonate-vitamin D3 [Calcium 500 + D] 500 mg(1,250mg) -400 unit (units unknown) (unknown) (unknown) (no date) (unknown) (unknown) caliber (units unknown) (unknown) (unknown) (no date) (unknown) (unknown) carotid arteries appear patent.? The common carotid arteries demonstrate normal (units unknown) (unknown) (unknown) (no date) (unknown) (unknown) cerebral arteries is otherwise within normal limits.? The flow within the middle (units unknown) (unknown) (unknown) (no date) (unknown) (unknown) cerebral (units unknown) (unknown) (unknown) (no date) (unknown) (unknown) cholecalciferol (vitamin D3) 25 1,000 unit PO DAILY 05/09/19 05/09/19 (units unknown) (unknown) (unknown) (no date) (unknown) (unknown) cholecalciferol (vitamin D3) [Vitamin D3] 1,000 unit Capsule (units unknown) (unknown) (unknown) (no date) (unknown) (unknown) codeine [CODEINE] AdvReac Intermediate N/V Verified 05/08/19 17:47 (units unknown) (unknown) (unknown) (no date) (unknown) (unknown) common (units unknown) (unknown) (unknown) (no date) (unknown) (unknown) concerned for acute CVA this is probably worsening of disease dementia I do not (units unknown) (unknown) (unknown) (no date) (unknown) (unknown) confusion however last night it got significantly worse seems to remain the same (units unknown) (unknown) (unknown) (no date) (unknown) (unknown) conventional anatomy as they arise from the aortic arch.? The origins of the (units unknown) (unknown) (unknown) (no date) (unknown) (unknown) cyanocobalamin (vitamin B-12) 100 100 mcg PO BID 05/09/19 05/09/19 (units unknown) (unknown) (unknown) (no date) (unknown) (unknown) cyanocobalamin (vitamin B-12) [Vitamin B-12] 100 mcg Tablet (units unknown) (unknown) (unknown) (no date) (unknown) (unknown) demonstrate a (units unknown) (unknown) (unknown) (no date) (unknown) (unknown) demonstrate (units unknown) (unknown) (unknown) (no date) (unknown) (unknown) electrolyte abnormality no sign of infection. Lactate however is mildly (units unknown) (unknown) (unknown) (no date) (unknown) (unknown) elevated at 2.6 but improves with some mild fluids 1 point. Not significantly (units unknown) (unknown) (unknown) (no date) (unknown) (unknown) equal bilaterally, no dysarthria or aphasia, sensation in tact to soft touch (units unknown) (unknown) (unknown) (no date) (unknown) (unknown) exposure control, adjustment of mA and/or kV according to patient size.? (units unknown) (unknown) (unknown) (no date) (unknown) (unknown) extra-axial fluid collections.? (units unknown) (unknown) (unknown) (no date) (unknown) (unknown) facial droop or any new, worsening or concerning symptoms (units unknown) (unknown) (unknown) (no date) (unknown) (unknown) ferrous sulfate 324 mg (65 mg 324 mg PO DAILY 05/09/19 05/09/19 (units unknown) (unknown) (unknown) (no date) (unknown) (unknown) ferrous sulfate 324 mg (65 mg iron) Tablet,Delayed Release (Dr/Ec) (units unknown) (unknown) (unknown) (no date) (unknown) (unknown) flow.? There is a diminutive left A1 segment, with a corresponding robust right (units unknown) (unknown) (unknown) (no date) (unknown) (unknown) fluticasone propionate 50 2 spray intranasal BID ##0 06/14/11 05/09/19 (units unknown) (unknown) (unknown) (no date) (unknown) (unknown) fluticasone propionate [Flonase Allergy Relief] 9.9 ML spray,suspension (units unknown) (unknown) (unknown) (no date) (unknown) (unknown) from the foramen magnum to the vertex.? 3-dimensional (units unknown) (unknown) (unknown) (no date) (unknown) (unknown) glucosam 750 mg-chondroi 100 2 tab PO DAILY 05/09/19 05/09/19 (units unknown) (unknown) (unknown) (no date) (unknown) (unknown) guarding or rebound. (units unknown) (unknown) (unknown) (no date) (unknown) (unknown) household members: spouse (units unknown) (unknown) (unknown) (no date) (unknown) (unknown) hydromorphone [HYDROMORPHONE] AdvReac Intermediate N/V Verified 05/08/19 17:47 (units unknown) (unknown) (unknown) (no date) (unknown) (unknown) impairment. Today he has no focal deficits he is confused about time and (units unknown) (unknown) (unknown) (no date) (unknown) (unknown) intact (units unknown) (unknown) (unknown) (no date) (unknown) (unknown) interface (units unknown) (unknown) (unknown) (no date) (unknown) (unknown) iron) tablet,delayed release (units unknown) (unknown) (unknown) (no date) (unknown) (unknown) irregularity and calcification, yet without a hemodynamically significant (units unknown) (unknown) (unknown) (no date) (unknown) (unknown) latex [LATEX] AdvReac Mild RASH Verified 05/08/19 17:47 (units unknown) (unknown) (unknown) (no date) (unknown) (unknown) left-sided pacer device is seen. (units unknown) (unknown) (unknown) (no date) (unknown) (unknown) left. (units unknown) (unknown) (unknown) (no date) (unknown) (unknown) lesions.? (units unknown) (unknown) (unknown) (no date) (unknown) (unknown) magnesium citrate 100 mg Tablet (units unknown) (unknown) (unknown) (no date) (unknown) (unknown) magnesium citrate 100 mg tablet 500 mg PO BID 05/09/19 05/09/19 (units unknown) (unknown) (unknown) (no date) (unknown) (unknown) [id number] rojection (MIP) (units unknown) (unknown) (unknown) (no date) (unknown) (unknown) mcg (1,000 unit) capsule (Vitamin (units unknown) (unknown) (unknown) (no date) (unknown) (unknown) mcg tablet (Vitamin B-12) (units unknown) (unknown) (unknown) (no date) (unknown) (unknown) mcg/actuation nasal (units unknown) (unknown) (unknown) (no date) (unknown) (unknown) membranes (units unknown) (unknown) (unknown) (no date) (unknown) (unknown) metformin 1,000 mg Tablet (units unknown) (unknown) (unknown) (no date) (unknown) (unknown) metformin 1,000 mg tablet 1,000 mg PO BID 05/09/19 05/09/19 (units unknown) (unknown) (unknown) (no date) (unknown) (unknown) metoprolol succinate 25 mg 75 mg PO DAILY 05/09/19 05/09/19 (units unknown) (unknown) (unknown) (no date) (unknown) (unknown) metoprolol succinate 25 mg Tablet Extended Release 24 Hr (units unknown) (unknown) (unknown) (no date) (unknown) (unknown) mg-hyalur 1.65 mg-CF borate 108 mg (units unknown) (unknown) (unknown) (no date) (unknown) (unknown) more distal internal carotid arteries demonstrate normal course and caliber.? (units unknown) (unknown) (unknown) (no date) (unknown) (unknown) negative (units unknown) (unknown) (unknown) (no date) (unknown) (unknown) no ST elevations previous EKG showed a paced rhythm. That was 2017 reports (units unknown) (unknown) (unknown) (no date) (unknown) (unknown) normal appearing basilar artery. Flow within the posterior cerebral arteries is (units unknown) (unknown) (unknown) (no date) (unknown) (unknown) normal courses and calibers.? The right vertebral artery is dominant to the (units unknown) (unknown) (unknown) (no date) (unknown) (unknown) normal (units unknown) (unknown) (unknown) (no date) (unknown) (unknown) not recognize his . On the chart there is diagnosis of memory and cognition (units unknown) (unknown) (unknown) (no date) (unknown) (unknown) of the right M1 segment, as on series 9, image 89.? The anterior communicating (units unknown) (unknown) (unknown) (no date) (unknown) (unknown) of (units unknown) (unknown) (unknown) (no date) (unknown) (unknown) oxycodone [OXYCODONE] AdvReac Intermediate N/V Verified 05/08/19 17:47 (units unknown) (unknown) (unknown) (no date) (unknown) (unknown) patent.? No (units unknown) (unknown) (unknown) (no date) (unknown) (unknown) patent.? (units unknown) (unknown) (unknown) (no date) (unknown) (unknown) place. CT angio is negative chest x-ray is negative no leukocytosis no (units unknown) (unknown) (unknown) (no date) (unknown) (unknown) presenting today with increased confusion. I called and spoke with Dr. Clements (units unknown) (unknown) (unknown) (no date) (unknown) (unknown) release 24 hr (Uroxatral) (units unknown) (unknown) (unknown) (no date) (unknown) (unknown) right atrial (units unknown) (unknown) (unknown) (no date) (unknown) (unknown) see reason to admit to hospital at this time. Recommend outpatient follow-up. (units unknown) (unknown) (unknown) (no date) (unknown) (unknown) seen. ? (units unknown) (unknown) (unknown) (no date) (unknown) (unknown) seen.? No aneurysms are seen.? (units unknown) (unknown) (unknown) (no date) (unknown) (unknown) segment largely terminates in the left posterior inferior cerebellar artery.? (units unknown) (unknown) (unknown) (no date) (unknown) (unknown) segment.? This is considered to be a normal developmental variant of the [place] (units unknown) (unknown) (unknown) (no date) (unknown) (unknown) spine. (units unknown) (unknown) (unknown) (no date) (unknown) (unknown) spray,suspension (Flonase Allergy (units unknown) (unknown) (unknown) (no date) (unknown) (unknown) stenosis. The (units unknown) (unknown) (unknown) (no date) (unknown) (unknown) tablet ([place]) (units unknown) (unknown) (unknown) (no date) (unknown) (unknown) tablet,extended release 24 hr (units unknown) (unknown) (unknown) (no date) (unknown) (unknown) that he 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 (units unknown) (unknown) (unknown) (no date) (unknown) (unknown) the administration of intravenous contrast, 1 mm thick sections acquired from (units unknown) (unknown) (unknown) (no date) (unknown) (unknown) the aortic (units unknown) (unknown) (unknown) (no date) (unknown) (unknown) through XII grossly intact. Good kjrqzq-zk-lczk, good xcln-zk-ydpo, strength (units unknown) (unknown) (unknown) (no date) (unknown) (unknown) tissues appear unremarkable.? (units unknown) (unknown) (unknown) (no date) (unknown) (unknown) today with confusion that started last night. states that he may have some (units unknown) (unknown) (unknown) (no date) (unknown) (unknown) today. No fever chills he does not of any chest pain or shortness of breath. (units unknown) (unknown) (unknown) (no date) (unknown) (unknown) vasculature (units unknown) (unknown) (unknown) (no date) (unknown) (unknown) vertex.? After (units unknown) (unknown) (unknown) (no date) (unknown) (unknown) vomiting. He apparently was sent here by his PCP for rule out of stroke (units unknown) (unknown) (unknown) (no date) (unknown) (unknown) warfarin 1 MG tablet (units unknown) (unknown) (unknown) (no date) (unknown) (unknown) warfarin 1 mg tablet 1.5 mg PO SEEINSTR ##0 06/05/11 05/09/19 (units unknown) (unknown) (unknown) (no date) (unknown) (unknown) warfarin 3 mg Tablet (units unknown) (unknown) (unknown) (no date) (unknown) (unknown) warfarin 3 mg tablet 3 mg PO SEEINSTR 05/09/19 05/09/19 (units unknown) (unknown) (unknown) (no date) (unknown) (unknown) who sent him here concern for worsening confusion he apparently woke up and did (units unknown) (unknown) Result panel 128 (unknown) (no date) (unknown) (unknown) (no value) (units unknown) (unknown) (unknown) (no date) (unknown) (unknown) NO GROWTH AFTER 24 HOURS (units unknown) (unknown) Result panel 129 (unknown) (no date) (unknown) (unknown) (no value) (units unknown) (unknown) (unknown) (no date) (unknown) (unknown) NO GROWTH AFTER 24 HOURS (units unknown) (unknown) Result panel 130 (unknown) (no date) (unknown) (unknown) (no value) (units unknown) (unknown) (unknown) (no date) (unknown) (unknown) NO GROWTH AFTER 48 HOURS (units unknown) (unknown) Result panel 131 (unknown) (no date) (unknown) (unknown) (no value) (units unknown) (unknown) (unknown) (no date) (unknown) (unknown) NO GROWTH AFTER 48 HOURS (units unknown) (unknown) Result panel 132 (unknown) (no date) (unknown) (unknown) (no value) (units unknown) (unknown) (unknown) (no date) (unknown) (unknown) NO GROWTH AFTER 72 HOURS (units unknown) (unknown) Result panel 133 (unknown) (no date) (unknown) (unknown) (no value) (units unknown) (unknown) (unknown) (no date) (unknown) (unknown) NO GROWTH AFTER 72 HOURS (units unknown) (unknown) Result panel 134 (unknown) (no date) (unknown) (unknown) (no value) (units unknown) (unknown) (unknown) (no date) (unknown) (unknown) NO GROWTH AFTER 4 DAYS (units unknown) (unknown) Result panel 135 (unknown) (no date) (unknown) (unknown) (no value) (units unknown) (unknown) (unknown) (no date) (unknown) (unknown) NO GROWTH AFTER 4 DAYS (units unknown) (unknown) Result panel 136 (unknown) (no date) (unknown) (unknown) (no value) (units unknown) (unknown) (unknown) (no date) (unknown) (unknown) NO GROWTH AFTER 5 DAYS (units unknown) (unknown) Result panel 137 (unknown) (no date) (unknown) (unknown) (no value) (units unknown) (unknown) (unknown) (no date) (unknown) (unknown) NO GROWTH AFTER 5 DAYS (units unknown) (unknown) Social History date description facility 2022-08-09 00:00 Never smoked tobacco ([facility] Vital Signs date measurement value units 2022-08-09 00:00 BP_diastolic 72 mmHg 2022-08-09 00:00 BP_systolic 134 mmHg 2022-08-09 00:00 heart_rate 79 /min 2022-08-09 00:00 o2_saturation 98 % 2022-08-09 00:00 respiration_rate 19 /min 2022-08-09 00:00 temperature_metric 36.44 C 2022-08-09 00:00 temperature_standard 97.6 F 2022-08-09 00:00 weight_metric 58.3 kg 2022-08-09 00:00 weight_standard 128.53 lb
--- NOTE | 2022-09-19 14:45 | CT Report ---
PROCEDURE: HEAD WO INDICATIONS: fall, struck head, on coumadin TECHNIQUE: Noncontrast 4.5 mm thick angled axial sections acquired from the foramen magnum to the vertex. For r adiation dose reduction, the following was used: automated exposure control, adjustment of mA and/or kV according to patient size. COMPARISON: None. FINDINGS: Image quality: There is streak artifact seen through the skull base. CSF spaces: Basal cisterns are patent. No extra-axial fluid collections. Ventricles are normal in size and shape. Brain: No midline shift. No intracranial masses or hemorrhage. Ortiz-white matter interface is norm al. Skull and face: Calvarium and visualized facial bones are intact, without suspicious lesions. Sinuses: Visualized sinuses and mastoids are clear. IMPRESSION: Noncontrast head CT within normal limits for age. No intracranial hemorrhage is seen. Reviewed by: Rian Rogers MD on 09/19/2022 1:44 PM SHYANNE Approved by: Rian Rogers MD on 09/19/2022 1:44 PM AKCARMEN Station ID: [id number]
[2022-09-19 15:29] VITALS: BP 125/78
== END 2022-09-19 15:45 | disposition home or self-care (01) ==
LOC: EDUNIT# → ED 13:59
DX: S00.93XA Contusion of unspecified part of head, initial encounter (principal); W19.XXXA Unspecified fall, initial encounter; Y93.89 Activity, other specified; I10 Essential (primary) hypertension; I48.91 Unspecified atrial fibrillation; E11.9 Type 2 diabetes mellitus without complications; Z79.01 Long term (current) use of anticoagulants; Z95.0 Presence of cardiac pacemaker; Z79.899 Other long term (current) drug therapy; Z79.84 Long term (current) use of oral hypoglycemic drugs; Z91.040 Latex allergy status
CPT/HCPCS: 70450; 85610; 99283; 99284; A9270

== ENCOUNTER 2023-01-09 12:02 | Outpatient (CLI) | payer MEDICARE, OTHER | END 2023-01-09 12:03 | disposition critical access hospital (66) | LOC: EMS 12:02 | DX: R63.8 Other symptoms and signs concerning food and fluid intake (principal); R53.83 Other fatigue; R41.82 Altered mental status, unspecified; R62.7 Adult failure to thrive; R05.9 Cough, unspecified | CPT/HCPCS: A0425; A0429 ==

== ENCOUNTER 2023-01-09 12:53 | Emergency (ER) | payer MEDICARE, OTHER ==
[2023-01-09] MEDS ORDERED: SODIUM CHLORIDE 0.9% 1,000 ML IV STA (13:23)
--- NOTE | 2023-01-09 13:28 | ED Physician Documentation ---
History of Present Illness - Stated complaint Stated Complaint: FTT - Chief complaint Chief Complaint: General - Additonal information Additional information: 87-year-old male was brought to the emergency department via EMS reportedly as a failure to thrive. Per EMS the patient has had increased weakness fatigue and decreased oral intake over the last week. Reportedly he was tested for COVID last week and was positive. He was seeing at an outlying facility but unsure where. The family reportedly also has COVID and is unable to care for him at home. Patient is somnolent but arouses easily. States that he is in the hospital at [facility]. He states he feels weak. States that he vomits after eating. States has had a cough for a long time. In point he denies chest pain, abdominal pain, nausea, vomiting or urinary symptoms. On presentation he had initial blood pressure 110/72. ECG shows a paced rhythm on the monitor. Saturating 94% room air. EMS had initial blood glucose of 100. Review of Systems Unable to obtain: Other (Per EMS) Constitutional: reports: Fatigue Eyes: reports: Reviewed and negative Nose: reports: Reviewed and negative Throat: reports: Reviewed and negative Cardiac: denies: Chest pain / pressure, Palpitations Respiratory: denies: Dyspnea GI: reports: Vomiting. denies: Abdominal Pain : reports: Reviewed and negative Skin: reports: Reviewed and negative PD PAST MEDICAL HISTORY - Past Medical History Cardiovascular: Hypertension, Atrial fibrillation Neuro: None Endocrine/Autoimmune: Type 2 diabetes - Past Surgical History Past Surgical History: Yes Ortho: Knee replacement Cardiovascular: Pacemaker - Present Medications Home Medications: Ambulatory Orders Medication Instructions Recorded Confirmed Alfuzosin HCl [Alfuzosin HCl ER] 11/21/13 11/21/13 Calcium Carbonate [Calcium] 11/21/13 11/21/13 Ferrous Sulfate [Slow Release Iron] 11/21/13 11/21/13 Folic Acid 11/21/13 11/21/13 Losartan [Cozaar] 11/21/13 11/21/13 Metformin HCl 11/21/13 11/21/13 Metoprolol Succinate [Toprol Xl] 11/21/13 11/21/13 Simvastatin 11/21/13 11/21/13 Warfarin [Coumadin] 11/21/13 11/21/13 Ciprofloxacin HCl [Cipro] 500 mg PO BID #20 tablet 01/09/23 metroNIDAZOLE [Flagyl] 500 mg PO BID 7 Days #14 tablet 01/09/23 - Allergies Allergies/Adverse Reactions: Allergies Allergy/AdvReac Type Severity Reaction Status Date / Time latex AdvReac Itching Verified 01/09/23 13:12 - Social History Does the pt smoke?: No Smoking Status: Never smoker Does the pt drink ETOH?: No Does the pt have substance abuse?: No - Immunizations Immunizations are current?: Yes - POLST Patient has POLST: No PD ED PE NORMAL - General General: Alert and oriented X 3, No acute distress, Well developed/nourished - HEENT HEENT: Atraumatic, Moist mucous membranes - Neck Neck: Supple, no meningeal sign - Cardiac Cardiac: RRR, No murmur - Respiratory Respiratory: No respiratory distress, Clear bilaterally - Abdomen Abdomen: Normal bowel sounds, Soft, Non tender - Derm Derm: Normal color, Warm and dry, No rash - Neuro Neuro: Alert and oriented X 3, 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 Eye Opening: Spontaneous Motor: Obeys Commands Verbal: Oriented GCS Score: 15 Results - Vitals Vitals: Vital Signs - 24 hr 01/09/23 01/09/23 01/09/23 13:13 16:08 16:57 Temperature 36.5 C 36 C L Heart Rate 60 84 76 Respiratory 18 18 17 Rate Blood Pressure 113/65 96/75 155/90 H O2 Saturation 100 100 98 Oxygen O2 Source Room air - Labs Labs: Laboratory Tests 01/09/23 01/09/23 01/09/23 13:50 13:50 13:57 WBC 5.8 RBC 4.38 L Hgb 13.3 L Hct 41.0 L MCV 93.6 MCH 30.4 MCHC 32.4 RDW 12.9 Plt Count 182 MPV 9.9 Neut # (Auto) 3.2 Lymph # (Auto) 1.6 Harris # (Auto) 0.8 Eos # (Auto) 0.2 Baso # (Auto) 0.0 Absolute Nucleated RBC 0.00 Nucleated RBC % 0.0 Sodium 130 L Potassium 4.5 Chloride 96 L Carbon Dioxide 27 Anion Gap 7.0 BUN 15 Creatinine 1.2 Estimated GFR (MDRD) 57 L Glucose 98 Calcium 9.1 Total Bilirubin 0.7 AST 17 ALT 9 L Alkaline Phosphatase 69 Total Protein 7.2 Albumin 4.0 Globulin 3.2 Albumin/Globulin Ratio 1.3 Lipase 118 H Urine Color Urine Clarity Urine pH Ur Specific [place] Urine Protein Urine Glucose (UA) Urine Ketones Urine Occult Blood Urine Nitrite Urine Bilirubin Urine Urobilinogen Ur Leukocyte Esterase Ur Microscopic Review Urine Culture Comments Nasal Adenovirus (PCR) NOT DETECTED Nasal B. parapertussis DNA (PCR) NOT DETECTED Nasal Coronavir 229E PCR NOT DETECTED Nasal Coronavir HKU1 PCR NOT DETECTED Nasal Coronavir NL63 PCR NOT DETECTED Nasal Coronavir OC43 PCR NOT DETECTED Nasal Enterovir/Rhinovir PCR NOT DETECTED Nasal Influenza B PCR NOT DETECTED Nasal Influenza A PCR NOT DETECTED Nasal Parainfluen 1 PCR NOT DETECTED Nasal Parainfluen 2 PCR NOT DETECTED Nasal Parainfluen 3 PCR NOT DETECTED Nasal Parainfluen 4 PCR NOT DETECTED Nasal RSV (PCR) NOT DETECTED Nasal B.pertussis DNA PCR NOT DETECTED Nasal C.pneumoniae (PCR) NOT DETECTED Jorge Luis Human Metapneumo PCR NOT DETECTED Nasal M.pneumoniae (PCR) NOT DETECTED Nasal SARS-CoV-2 (PCR) DETECTED A 01/09/23 14:04 WBC RBC Hgb Hct MCV MCH MCHC RDW Plt Count MPV Neut # (Auto) Lymph # (Auto) Harris # (Auto) Eos # (Auto) Baso # (Auto) Absolute Nucleated RBC Nucleated RBC % Sodium Potassium Chloride Carbon Dioxide Anion Gap BUN Creatinine Estimated GFR (MDRD) Glucose Calcium Total Bilirubin AST ALT Alkaline Phosphatase Total Protein Albumin Globulin Albumin/Globulin Ratio Lipase Urine Color LIGHT YELLOW Urine Clarity CLEAR Urine pH 6.0 Ur Specific [place] <=1.005 Urine Protein NEGATIVE Urine Glucose (UA) NEGATIVE Urine Ketones TRACE Urine Occult Blood NEGATIVE Urine Nitrite NEGATIVE Urine Bilirubin NEGATIVE Urine Urobilinogen 0.2 (NORMAL) Ur Leukocyte Esterase NEGATIVE Ur Microscopic Review NOT INDICATED Urine Culture Comments NOT INDICATED Nasal Adenovirus (PCR) Nasal B. parapertussis DNA (PCR) Nasal Coronavir 229E PCR Nasal Coronavir HKU1 PCR Nasal Coronavir NL63 PCR Nasal Coronavir OC43 PCR Nasal Enterovir/Rhinovir PCR Nasal Influenza B PCR Nasal Influenza A PCR Nasal Parainfluen 1 PCR Nasal Parainfluen 2 PCR Nasal Parainfluen 3 PCR Nasal Parainfluen 4 PCR Nasal RSV (PCR) Nasal B.pertussis DNA PCR Nasal C.pneumoniae (PCR) Jorge Luis Human Metapneumo PCR Nasal M.pneumoniae (PCR) Nasal SARS-CoV-2 (PCR) - Rads (name of study) cxr Relevant Findings:: Final report received (Cardiomegaly. No acute pulmonary process.) CT abd Relevant Findings:: Final report received (Bowel hyperenhancement in the sigmoid colon and rectum and mild wall thickening in the cecum may indicate a nonspecific proctocolitis. Mild diffuse hepatic steatosis. Mild cardiomegaly. Trace pleural effusion. Prostamegaly.) PD Medical Decision Making - ED course Complexity details: reviewed results, re-evaluated patient, d/w family ED course: 87-year-old male was brought to the emergency department by EMS for evaluation of reported failure to thrive. The patient is living at home with his family and they all have COVID-19. They called EMS because they felt that he was not eating and drinking enough. He does have a cough but no fevers. On exam he appears well. His initial vital signs were without fever, tachycardia or hypotension. His abdominal exam was rather benign. However when I asked the patient how he was feeling he said he felt okay except that his belly hurt especially after eating. Subsequently we did obtain CBC, electrolytes and urinalysis. Per my interpretation he has no leukocytosis and a nearly normal hemoglobin. His sodium is mildly low at 130. There is no real previous for comparison but he is without altered mentation. The rest of his labs that showed a mild lipase elevation of 118. Urine was without infection respiratory PCR panel was positive for COVID-19. He has been symptomatic for more than a week. Chest x- ray was without infiltrates. He is without hypoxia. Subsequently a CT of the abdomen was completed. It did show signs of prostamegaly and proctocolitis. With this in mind we did decide to place him on antibiotics Cipro and Flagyl. He was advised to have his INR checked this week while on the Cipro in order to avoid supratherapeutic INR's. While here in the emergency department the patient has been able to easily ambulate out of bed and has been tolerating sips of clear liquids. He was advised to follow with his primary care provider. He may benefit from referral to urologist for evaluation of the prostatitis as well as consideration of a colonoscopy. The usual emergent return precautions for worsening symptoms was discussed Departure - Departure Disposition: 01 Home, Self Care Clinical Impression: COVID-19 virus infection, Proctocolitis Condition: Stable Record reviewed to determine appropriate education?: Yes Prescriptions: Ciprofloxacin HCl [Cipro] 500 mg PO BID #20 tablet metroNIDAZOLE [Flagyl] 500 mg PO BID 7 Days #14 tablet Comments: He was seen today in the emergency department because he has had a poor appetite recently and had reported abdominal pain. He has tested positive today for COVID-19. However it sounds as though the entire family has COVID-19. His chest x-ray did not show any worrisome findings such as pneumonia. His labs today in the emergency department including CBC and electrolytes showed no worrisome findings. His urine showed no signs of infection. The CT of the abdomen did show inflammation of the lower colon and near the prostate. This is called proctocolitis. In order to treat it we are putting him on 2 antibiotics 1 Cipro the other Flagyl. Because he is on Coumadin you will need to have his primary doctor recheck his INR this week to ensure that it is not too high as that could cause worrisome bleeding. Please discuss this ED visit with his primary care doctor as soon as possible. Once he is feeling better he should be referred to urology for evaluation of his prostate as well as consideration of referral for a colonoscopy to ensure that there are no signs of colon cancer or masses that could be contributing to his symptoms. Return immediately to the ER for any new or worsening symptoms [facility] which [facility] a [facility]- through pharmacy. Forms: PCP List
[2023-01-09] MEDS ORDERED: ONDANSETRON 4 MG/2 ML VIAL IVP STA (13:29)
[2023-01-09 13:57] LABS: BASOPHILS % (AUTO) 0.3 %; EOSINOPHILS # (AUTO) 0.2 10^3/uL (0.0-0.7); EOSINOPHILS % (AUTO) 3.6 %; HGB - HEMOGLOBIN 13.3 g/dL (14.0-18.0); LYMPHOCYTES # (AUTO) 1.6 10^3/uL (1.5-3.5); MEAN CORPUSCULAR HEMOGLOBIN 30.4 pg (27.0-31.0); MEAN CORPUSCULAR HGB CONC 32.4 g/dL (32.0-36.0); MEAN CORPUSCULAR VOLUME 93.6 fL (80.0-94.0); MEAN PLATELET VOLUME 9.9 fL (7.4-11.4); MONOCYTES # (AUTO) 0.8 10^3/uL (0.0-1.0); NEUTROPHILS # (AUTO) 3.2 10^3/uL (1.5-6.6); NEUTROPHILS % (AUTO) 54.8 %; PLT - PLATELET COUNT 182 10^3/uL (130-450); RED BLOOD COUNT 4.38 10^6/uL (4.70-6.10); RED CELL DISTRIBUTION WIDTH 12.9 % (12.0-15.0); WHITE BLOOD COUNT 5.8 x10^3/uL (4.8-10.8)
--- NOTE | 2023-01-09 13:57 | XRAY Report ---
PROCEDURE: Chest 1 View X-Ray INDICATIONS: cough TECHNIQUE: One view of the chest was acquired. COMPARISON: None. FINDINGS: Surgical changes and devices: Cervical fusion hardware, pacemaker Lungs and pleura: No pleural effusions or pneumothorax. Lungs are clear. Mediastinum: Mediastinal contours appear normal. Cardiomegaly Bones and chest wall: No suspicious bony lesions. Overlying soft tissues appear unremarkable. 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 IMPRESSION: Cardiomegaly. No acute pulmonary process. Reviewed by: Jose Cui MD on 01/09/2023 1:56 PM PDT Approved by: Jose Cui MD on 01/09/2023 1:56 PM PDT Station ID: [id number]
[2023-01-09 14:17] LABS: ALBUMIN/GLOBULIN RATIO 1.3 (1.0-2.2); BILIRUBIN,TOTAL 0.7 mg/dL (0.2-1.0); CALCIUM 9.1 mg/dL (8.5-10.3); CREATININE 1.2 mg/dL (0.6-1.3); POTASSIUM 4.5 mmol/L (3.5-4.5); TOTAL PROTEIN 7.2 g/dL (6.4-8.9)
[2023-01-09 14:36] LABS: BILIRUBIN,URINE NEGATIVE (NEGATIVE); GLUCOSE, URINE (UA) NEGATIVE (NEGATIVE); KETONES,URINE (UA) TRACE mg/dL (NEGATIVE); LEUKOCYTE ESTERASE, URINE NEGATIVE (NEGATIVE); NITRITE,URINE NEGATIVE (NEGATIVE); OCCULT BLOOD,URINE NEGATIVE (NEGATIVE); PROTEIN,URINE NEGATIVE (NEGATIVE); UROBILINOGEN,URINE 0.2 (NORMAL) E.U./dL (NORMAL)
[2023-01-09 14:39] LABS: CLARITY,URINE CLEAR (CLEAR)
[2023-01-09 15:04] LABS: B. PARAPERTUSSIS- RESP PCR PAN NOT DETECTED; B. PERTUSSIS- RESP PCR PANEL NOT DETECTED; C. PNEUMONIAE- RESP PCR PANEL NOT DETECTED; CORONAVIRUS 229E-RESP PCR NOT DETECTED; CORONAVIRUS HKU1-RESP PCR NOT DETECTED; CORONAVIRUS NL63-RESP PCR NOT DETECTED; CORONAVIRUS OC43-RESP PCR NOT DETECTED; HUMAN METAPNEUMOVIRUS NOT DETECTED; INFLUENZA A- RESP PCR PANEL NOT DETECTED; INFLUENZA B - RESP PCR PANEL NOT DETECTED; M. PNEUMONIAE- RESP PCR PANEL NOT DETECTED; PARAINFLUENZA VIRUS 1 NOT DETECTED; PARAINFLUENZA VIRUS 2 NOT DETECTED; PARAINFLUENZA VIRUS 3 NOT DETECTED; PARAINFLUENZA VIRUS 4 NOT DETECTED; RHINOVIRUS/ENTEROVIRUS NOT DETECTED; RSV- RESP PCR PANEL NOT DETECTED
[2023-01-09 15:07] LABS: SARS-CoV-2 -RESP PCR PANEL DETECTED
--- NOTE | 2023-01-09 17:12 | CT Report ---
PROCEDURE: ABDOMEN/PELVIS W INDICATIONS: FTT, abd pain CONTRAST: omni 300 100ml TECHNIQUE: After the administration of intravenous contrast, 5 mm thick sections acquired from the diaphragms to the symphysis. 5 mm thick coronal and sagittal reformats were acquired. For radiation dose reducti on, the following was used: automated exposure control, adjustment of mA and/or kV according to corey ent size. COMPARISON: None. FINDINGS: Image quality: Excellent. Lung bases and heart: Trace left pleural effusion with place. Heart is moderately enlarged. Liver: Liver is hypoattenuating, likely due to fatty infiltration. Gallbladder and biliary tree: Surgically absent. No biliary dilation, accounting for post-cholecystec rojas state. Spleen: No splenomegaly. Pancreas: No pancreatic ductal dilation. Adrenals: No adrenal nodule. Kidneys and ureters: No hydronephrosis. No renal cystic lesion which requires follow up. No solid mas s. Multiple simple appearing cysts are seen in the kidneys, right greater than left. Bowel and peritoneum: Mild mural hyperenhancement in the sigmoid colon and rectum is nonspecific but may indicate a mild colitis. Small bowel wall thickening is seen in the cecum. Small bowel loops and stomach are unremarkable. There is trace perihepatic ascites. No pneumoperitoneum. Lymph nodes: No central or retroperitoneal adenopathy. Vessels: No infrarenal aortic aneurysm. PELVIS Reproductive organs: Prostate is mildly enlarged. Bladder: No abnormal wall thickening, accounting for underdistension. Pelvic lymph nodes: No pelvic adenopathy by size criteria. Bones: No aggressive osseous abnormality. Multilevel degenerative changes are seen in the spine with mild levoconvex curvature. Other: No significant ventral or inguinal hernia. IMPRESSION: 1.Bowel hyperenhancement in the sigmoid colon and rectum and mild wall thickening in the cecum may in dicate a nonspecific proctocolitis. 2.Mild diffuse hepatic steatosis. 3.Moderate cardiomegaly. 4.Trace left pleural effusion. Trace perihepatic ascites. 5.Prostamegaly. Reviewed by: Richard Engle MD on 01/09/2023 5:10 PM PDT Approved by: Richard Engle MD on 01/09/2023 5:10 PM PDT Station ID: [id number]
[2023-01-10 10:56] VITALS: BP 152/86; O2SAT 100
== END 2023-01-09 20:06 | disposition home or self-care (01) ==
LOC: EDUNIT# → ED 12:53
DX: U07.1 COVID-19 (principal); K62.89 Other specified diseases of anus and rectum; I10 Essential (primary) hypertension; I48.91 Unspecified atrial fibrillation; E11.9 Type 2 diabetes mellitus without complications; Z79.899 Other long term (current) drug therapy; Z79.01 Long term (current) use of anticoagulants
CPT/HCPCS: 36415; 80053; 81001; 81003; 83690; 85025; 87086; 87633; 96374; 99284

== ENCOUNTER 2023-01-28 09:42 | Outpatient (CLI) | payer MEDICARE, OTHER | END 2023-01-28 09:43 | disposition home or self-care (01) | LOC: LAB 09:42 | PROVIDERS: ATTEND Family Medicine | DX: I48.91 Unspecified atrial fibrillation (principal); Z79.01 Long term (current) use of anticoagulants | CPT/HCPCS: 36416; 85610 ==

== ENCOUNTER 2023-04-30 10:43 | Outpatient (CLI) | payer MEDICARE, OTHER | END 2023-04-30 10:44 | disposition home or self-care (01) | LOC: LAB 10:43 | PROVIDERS: ATTEND Family Medicine | DX: I48.91 Unspecified atrial fibrillation (principal); Z79.01 Long term (current) use of anticoagulants | CPT/HCPCS: 36416; 85610 ==

== ENCOUNTER 2023-05-31 06:37 | Outpatient (CLI) | payer MEDICARE, OTHER | END 2023-05-31 06:38 | disposition EMS.NT | LOC: EMS 06:37 | DX: Z03.89 Encounter for observation for other suspected diseases and conditions ruled out (principal) ==

== ENCOUNTER 2023-06-01 16:55 | Outpatient (CLI) | payer MEDICARE, OTHER | END 2023-06-01 23:59 | disposition critical access hospital (66) | LOC: EMS 16:55 | DX: R53.1 Weakness (principal); M54.50 Low back pain, unspecified; M79.602 Pain in left arm; M79.601 Pain in right arm; I48.91 Unspecified atrial fibrillation | CPT/HCPCS: A0425; A0429 ==

== ENCOUNTER 2023-07-01 12:28 | Outpatient (CLI) | payer MEDICARE, OTHER | END 2023-07-01 23:59 | disposition short-term general hospital (02) | LOC: EMS 12:28 | DX: R40.0 Somnolence (principal); R41.0 Disorientation, unspecified; I95.9 Hypotension, unspecified; I48.91 Unspecified atrial fibrillation; Z79.01 Long term (current) use of anticoagulants | CPT/HCPCS: A0425; A0427; A0888 ==